=== PATIENT | male | born 1945 | race Caucasian/White ===

== ENCOUNTER 2019-07-15 22:18 | Inpatient (IN) | payer MEDICARE, SELFPAY ==
[2019-07-15] VITALS (13 sets, daily range): BP systolic 147; BP diastolic 101; PULSE 109–173; RESP 18; TEMP 38.2; O2SAT 87–97; BMI 22.4
--- NOTE | 2019-07-15 22:26 | XR_ITS ---
WS: [id number] XR chest 1V portable [id number] REASON FOR EXAM: cough FINDINGS: Chronic obstructive pulmonary disease findings. Fibrosis lower lung kumar. The overall pat tern has not changed since August 07, 2017. The heart is not enlarged No pneumonia, pulmonary edema, pleural effusion. The hilum and apices normal. XR/XR chest 1V portable [id number] IMPRESSION: Chronic obstructive pulmonary disease with fibrosis.
--- NOTE | 2019-07-15 22:27 | ECG_ITS ---
Measurements Intervals [place] Rate: 134 P: MI: 0 QRS: 79 QRSD: 138 T: 16 QT: 311 QTc: 465 ATRIAL FIBRILLATION WITH RAPID VENTRICULAR RESPONSE RIGHT BUNDLE BRANCH BLOCK [120+ ms QRS DURATION, UPRIGHT V1, 40+ ms S IN I/ I/aVL/V4/V5/V6] Compared to ECG 08/07/2017 20:07:12 Sinus rhythm no longer present First degree AV block no longer present Electronically Signed On 07-16-2019 12:24:14 CDT by Shira Amaya M.D. [id number]
--- NOTE | 2019-07-15 22:35 | ED_ITS ---
HPI - Chest Pain General: Chief Complaint: Chest Pain Stated Complaint: sob Time Seen by Provider: 07/15/19 22:26 History of Present Illness: HPI narrative: Mr. La is a nice 74-year-old male who comes in complaining of shortness of breath. He states that at 4 PM he developed abrupt onset of rapid palpitations, chest pain that was made worse with deep breathing. Patient states he has a cough but it is not productive. His primary complaint is that of rapid palpitations causing a chest discomfort. He is unaware of anything that makes his symptoms better but he states he does feel worse when he lays flat. The patient of note does have a fever here and he has been unaware of any fever. With the current pandemic the patient states he has been self quarantine again has not been exposed to anyone with the coronavirus that he is aware of. Associated symptoms: Reports dyspnea and palpitations; Deny abdominal pain, diaphoresis, fever(s), nausea, syncope or vomiting Review of Systems General: Reports: other (negative unless marked) Const: Denies: fever, chills, body aches, fatigue, malaise or diaphoresis Eyes: Denies: change in vision or blurry vision ENMT: Denies: throat pain, painful swallowing, hoarseness, ear pain, ear discharge, Change in hearing or nasal discharge Card: Reports: chest pain and palpitations; Denies: syncope, pre-syncope, shortness of breath on exertion or shortness of breath when lying down Resp: Reports: shortness of breath; Denies: productive cough, non-productive cough, wheezing, coughing up blood or chest congestion GI: Denies: abdominal pain, nausea, vomiting, vomiting blood, coffee grounds in vomit, diarrhea, constipation, cramping, blood in stool or black tarry stool : Denies: flank pain, difficulty urinating, painful urination, urinary frequency, urinary urgency, decreased urine ouput, urinary incontinence or blood in urine Musc: Denies: neck pain, back pain, extremity pain, extremity swelling, joint pain, joint swelling, joint warmth or joint stiffness Skin/Breast: Denies: rash, skin tenderness or yellow skin Neuro: Denies: headache, numbness in extremities, weakness in extremities, changes in sensation, lack of coordination, difficulty walking, dizziness, vertigo or confusion Endo: Denies: excessive thirst, tired all the time, cold intolerance, excessive sweating, flushing or hot flashes Asif/Lymph: Denies: easy bruising, easy bleeding, petechiae or enlarged lymph nodes All/Imm: Denies: hives, throat swelling, tongue swelling, facial swelling or acute wheezing PFSH ED PFSH: Medical History (Updated 07/16/19 @ 04:30 by Kristan Quijano) 1st degree AV block AF (paroxysmal atrial fibrillation) Atrial fibrillation Chronic anticoagulation Essential (primary) hypertension Headache Hypotension, unspecified Osteoarthritis of both knees RBBB SVT (supraventricular tachycardia) Surgical History (Updated 07/16/19 @ 02:30 by Azael Reynoso MD) History of tonsillectomy and adenoidectomy Family History Father Cancer Social History Smoking and tobacco status: never smoked Alcohol intake: current Alcohol intake frequency: holidays/special occasions only History of recent travel: No Physical Exam Const: COMMON NORMALS: no apparent distress, oriented x3, no limitations, healthy appearing and well nourished EXAM LIMITATIONS: no altered mental status GENERAL APPEARANCE: cooperative, well kempt and well developed ORIENTATION/CONSCIOUSNESS: Yes awake HENMT: COMMON NORMALS: normocephalic, head/scalp atraumatic, hearing grossly normal bilaterally, external ears normal, EAC's normal, external nose normal and moist oral mucous membranes HEAD & SCALP: normal to inspection, normocephalic and atraumatic FACE & SINUS: normal facial exam and face symmetric NOSE: external nose normal and nares normal EXTERNAL EAR: Yes external ears normal EXTERNAL AUDITORY CANAL: EAC's normal MOUTH: oral and palatal mucosa normal and tongue normal Eye: COMMON NORMALS: PERRL, EOMs intact bilaterally, conjunctivae normal and no scleral icterus GENERAL EYE: normal appearance of both eyes and normal light reflex CONJUNCTIVA: Yes conjunctivae normal SCLERA: sclerae normal CORNEA: Yes corneas normal PUPIL: Yes PERRL DIRECT OPHTHALMOSCOPY: Yes normal light reflex Neck/C-Spine: COMMON NORMALS: full ROM, no lymphadenopathy, supple, no meningeal signs and no JVD GENERAL: Yes normal visual inspection and Yes trachea midline CERVICAL SPINE: Yes cervical ROM normal Chest: COMMONS NORMALS: inspection of chest normal and palpation of chest normal Resp: COMMON NORMALS: normal respiratory effort, no retractions and no use of accessory muscles EFFORT & INSPECTION: Yes able to speak in complete sentences Cardio: COMMON NORMALS: no JVD, S1 normal heart sound, S2 normal heart sound, no gallops, no clicks, no murmurs and no rub JUGULAR VENOUS DISTENTION: no JVD RATE: tachycardic RHYTHM: abnormal rhythm irregularly irregular HEART SOUNDS: S1 normal and S2 normal GI: COMMON NORMALS: soft to palpation, non-tender, no hepatosplenomegaly and no masses INSPECTION: Yes normal to inspection PALPATION: Yes soft and Yes no hepatosplenomegaly : COMMON NORMALS: Yes no CVA tenderness BLADDER/KIDNEY EXAM: Yes no CVA tenderness Back/Pelvis: COMMON NORMALS: no CVA tenderness, thoracic and lumbar spine normal to inspection, no thoracic nor lumbar tenderness and thoraco-lumbar ROM normal Extremity: COMMON NORMALS: normal to inspection, full ROM, normal capillary refill, no joint enlargement, no clubbing, cyanosis or edema and no calf tenderness Neuro: COMMON NORMALS: oriented x3, CN's II-XII intact bilaterally, moves all extremities, no focal motor deficits and no sensory deficits noted MENINGEAL SIGNS: Yes no meningeal signs Psych: COMMON NORMALS: mental status grossly normal, thought process normal, cooperative, affect normal, speech normal and activity/motor behavior normal APPEARANCE: Yes well kempt SPEECH: Yes normal speech THOUGHT PROCESS: normal thought process Skin: COMMON NORMALS: no rashes or lesions noted, skin turgor normal, no jaundice, no petechiae and no mottling GENERAL SKIN EXAM: no rashes or lesions noted and turgor normal Course Vital Signs: Vital signs: Vital Signs Temperature 100.8 F H 07/15/19 22:32 Pulse Rate 139 H 07/16/19 04:15 Respiratory Rate 35 H 07/16/19 04:20 Blood Pressure 121/79 07/16/19 04:20 Pulse Oximetry 95 07/16/19 04:20 MDM - Chest Pain MDM Narrative: Medical decision making narrative: Mr. La is a 74-year-old male who comes in with A. fib with RVR. I believe this is been stimulated by sepsis which is caused by UTI. The patient has mild congestive heart failure secondary to the A. fib but when his rate is controlled with Cardizem he feels much better. Patient is been. We treated for his UTI and the case is been endorsed to Dr. Reynoso who agrees to go ahead and admit for sepsis/UTI and A. fib with RVR. Lab Data: Labs: Lab Results 07/15/19 07/15/19 07/16/19 Range/Units 00:40 22:45 00:05 WBC 11.8 H (4.0-10.0) 10^3/ uL RBC 4.25 (4.1-5.3) 10^6/u L Hgb 14.0 (11.7-16.6) g/dL Hct 42.0 (42.0-52.0) % MCV 98.8 H (80-94) fL MCH 32.9 (28.0-34.0) pg MCHC 33.3 (30.0-36.0) g/dL RDW 13.5 (12.1-15.1) % Plt Count 409 H (130-400) 10^3/c mm MPV 10.7 H (7.4-10.4) fL Neut % (Auto) 79.7 % Lymph % (Auto) 7.0 % [place] % (Auto) 12.0 % Eos % (Auto) 0.6 % Baso % (Auto) 0.3 % Neut # (Auto) 9.4 H (1.8-7.7) 10^3/u L Lymph # (Auto) 0.8 (0.8-4.8) 10^3/u L [place] # (Auto) 1.4 H (0.2-0.9) 10^3/u L Eos # (Auto) 0.1 (0.0-0.8) 10^3/u L Baso # (Auto) 0.0 (0.0-0.1) 10^3/u L Nucleated RBC % (a uto) 0 % Nucleated RBCs # 0.0 /100WBC PT (10.5-13.3) SECO NDS INR (0.8-1.2) ABG pH 7.50 H (7.35-7.45) ABG pCO2 26.7 L (35-45) mmHg ABG pO2 57.6 L (80.0-100.0) mmH g ABG HCO3 20.8 L (22-26) mmol/L ABG O2 Saturation 95 ABG Base Excess -1.0 (-2.0-2.0) mmol/ L O2 Delivery Device None FiO2 21.0 % Data Lead ID [id number] Sodium (136-145) mmol/L Potassium (3.5-5.1) mmol/L Chloride (98-107) mmol/L Carbon Dioxide (22-29) mmol/L Anion Gap (5-19) BUN (8-23) mg/dL Creatinine (0.7-1.2) mg/dL Glucose (65-115) mg/dL Calculated Osmolal ity (285-295) mOsm/k g Lactic Acid (0.5-2.2) mmol/L Calcium (8.5-10.5) mg/dL Magnesium (1.7-2.3) mg/dL Total Bilirubin (0.15-1.2) mg/dL AST (0-40) U/L ALT (0-41) U/L Alkaline Phosphata se (40-130) IU/L Troponin T Baselin e (0-15) ng/mL NT-Pro-B Natriuret Pep (0-450) pg/mL Total Protein (6.6-8.7) g/dL Albumin (3.5-5.2) g/dL Globulin (1.3-4.6) g/dL Influenza Type A A g Negative (Negative) Influenza Type B A g Negative (Negative) 07/16/19 07/16/19 07/16/19 Range/Units 00:05 00:05 00:05 WBC (4.0-10.0) 10^3/ uL RBC (4.1-5.3) 10^6/u L Hgb (11.7-16.6) g/dL Hct (42.0-52.0) % MCV (80-94) fL MCH (28.0-34.0) pg MCHC (30.0-36.0) g/dL RDW (12.1-15.1) % Plt Count (130-400) 10^3/c mm MPV (7.4-10.4) fL Neut % (Auto) % Lymph % (Auto) % [place] % (Auto) % Eos % (Auto) % Baso % (Auto) % Neut # (Auto) (1.8-7.7) 10^3/u L Lymph # (Auto) (0.8-4.8) 10^3/u L [place] # (Auto) (0.2-0.9) 10^3/u L Eos # (Auto) (0.0-0.8) 10^3/u L Baso # (Auto) (0.0-0.1) 10^3/u L Nucleated RBC % (a uto) % Nucleated RBCs # /100WBC PT 24.80 H (10.5-13.3) SECO NDS INR 2.16 H (0.8-1.2) ABG pH (7.35-7.45) ABG pCO2 (35-45) mmHg ABG pO2 (80.0-100.0) mmH g ABG HCO3 (22-26) mmol/L ABG O2 Saturation ABG Base Excess (-2.0-2.0) mmol/ L O2 Delivery Device FiO2 % Data Lead ID Sodium 135 L (136-145) mmol/L Potassium 5.0 (3.5-5.1) mmol/L Chloride 101 (98-107) mmol/L Carbon Dioxide 23 (22-29) mmol/L Anion Gap 16.0 (5-19) BUN 14 (8-23) mg/dL Creatinine 1.1 (0.7-1.2) mg/dL Glucose 148 H (65-115) mg/dL Calculated Osmolal ity 279 L (285-295) mOsm/k g Lactic Acid 1.2 (0.5-2.2) mmol/L Calcium 8.9 (8.5-10.5) mg/dL Magnesium 2.1 (1.7-2.3) mg/dL Total Bilirubin 0.5 (0.15-1.2) mg/dL AST 18 (0-40) U/L ALT 11 (0-41) U/L Alkaline Phosphata se 116 (40-130) IU/L Troponin T Baselin e (0-15) ng/mL NT-Pro-B Natriuret Pep 1073 H (0-450) pg/mL Total Protein 7.5 (6.6-8.7) g/dL Albumin 4.0 (3.5-5.2) g/dL Globulin 3.5 (1.3-4.6) g/dL Influenza Type A A g (Negative) Influenza Type B A g (Negative) 07/16/19 Range/Units 00:05 WBC (4.0-10.0) 10^3/ uL RBC (4.1-5.3) 10^6/u L Hgb (11.7-16.6) g/dL Hct (42.0-52.0) % MCV (80-94) fL MCH (28.0-34.0) pg MCHC (30.0-36.0) g/dL RDW (12.1-15.1) % Plt Count (130-400) 10^3/c mm MPV (7.4-10.4) fL Neut % (Auto) % Lymph % (Auto) % [place] % (Auto) % Eos % (Auto) % Baso % (Auto) % Neut # (Auto) (1.8-7.7) 10^3/u L Lymph # (Auto) (0.8-4.8) 10^3/u L [place] # (Auto) (0.2-0.9) 10^3/u L Eos # (Auto) (0.0-0.8) 10^3/u L Baso # (Auto) (0.0-0.1) 10^3/u L Nucleated RBC % (a uto) % Nucleated RBCs # /100WBC PT (10.5-13.3) SECO NDS INR (0.8-1.2) ABG pH (7.35-7.45) ABG pCO2 (35-45) mmHg ABG pO2 (80.0-100.0) mmH g ABG HCO3 (22-26) mmol/L ABG O2 Saturation ABG Base Excess (-2.0-2.0) mmol/ L O2 Delivery Device FiO2 % Data Lead ID Sodium (136-145) mmol/L Potassium (3.5-5.1) mmol/L Chloride (98-107) mmol/L Carbon Dioxide (22-29) mmol/L Anion Gap (5-19) BUN (8-23) mg/dL Creatinine (0.7-1.2) mg/dL Glucose (65-115) mg/dL Calculated Osmolal ity (285-295) mOsm/k g Lactic Acid (0.5-2.2) mmol/L Calcium (8.5-10.5) mg/dL Magnesium (1.7-2.3) mg/dL Total Bilirubin (0.15-1.2) mg/dL AST (0-40) U/L ALT (0-41) U/L Alkaline Phosphata se (40-130) IU/L Troponin T Baselin e 18 H (0-15) ng/mL NT-Pro-B Natriuret Pep (0-450) pg/mL Total Protein (6.6-8.7) g/dL Albumin (3.5-5.2) g/dL Globulin (1.3-4.6) g/dL Influenza Type A A g (Negative) Influenza Type B A g (Negative) Imaging Data^: CXR: My impression: No focal infiltrates. Bilateral lower lobe congestion?mild EKG Data^: EKG 1: Attestation: I personally reviewed and interpreted this EKG as follows: EKG interpretation date: 07/16/19 EKG interpretation time: 22:38 Interpretation: Atrial fibrillation with a ventricular rate of 134, nonspecific ST-T wave changes, right bundle branch block. EKG 2: Attestation: I personally reviewed and interpreted this EKG as follows: EKG interpretation date: 07/16/19 EKG interpretation time: 01:33 Interpretation: Normal sinus rhythm at 79 beats a minute, right bundle branch block, no other acute ST or T wave changes. Discharge Plan Discharge Patient Disposition: Admitted As Inpatient Admit Provider: Azael Reynoso Clinical Impression: AF (paroxysmal atrial fibrillation), Sepsis, Acute UTI Condition: Stable Interventions: ED Discharge Assessment Last Done: 07/16/19 03:11 ED Charges Last Done: 07/16/19 03:11 Discharge Date/Time: 07/16/19 04:24 Coding Level of Care Code ED Emergency Room Registered Nurse for Chg Fwd Exam Comprehensive
[2019-07-15] MEDS: acetaminophen 500 mg Tablet 1000 MG PO (23:01)
[2019-07-16] VITALS (79 sets, daily range): BP systolic 70–127; BP diastolic 41–81; PULSE 0–149; RESP 18–35; TEMP 36.4–37.7; O2SAT 88–97
[2019-07-16] MEDS: albuterol 8 gm MDI 6 PUFF INHALATION
[2019-07-16 00:18] LABS: Basophils % 0.3 %; Eosinophils # 0.1 10^3/uL (0.0-0.8); Eosinophils % 0.6 %; Lymphocytes # 0.8 10^3/uL (0.8-4.8); Mean Corpuscular HGB Conc 33.3 g/dL (30.0-36.0); Mean Corpuscular Hemoglobin 32.9 pg (28.0-34.0); Mean Corpuscular Volume 98.8 fL (80-94); Mean Platelet Volume 10.7 fL (7.4-10.4); Monocytes # 1.4 10^3/uL (0.2-0.9); Neutrophils # 9.4 10^3/uL (1.8-7.7); Neutrophils % 79.7 %; Nucleated Red Blood Cells % 0 %; Platelet Count 409 10^3/cmm (130-400); Red Blood Count 4.25 10^6/uL (4.1-5.3); Red Cell Distribution Width 13.5 % (12.1-15.1); White Blood Count 11.8 10^3/uL (4.0-10.0)
[2019-07-16 00:32] LABS: Lactic Sepsis W/Reflex 1.2 mmol/L (0.5-2.2)
[2019-07-16 00:34] LABS: INR 2.16 (0.8-1.2)
[2019-07-16 00:35] LABS: Troponin(5th) Baseline 18 ng/mL (0-15)
[2019-07-16 00:44] LABS: Alanine Aminotransferase 11 U/L (0-41); Alkaline Phosphatase 116 IU/L (40-130); Aspartate Amino Transferase 18 U/L (0-40); Blood Urea Nitrogen 14 mg/dL (8-23); Calcium 8.9 mg/dL (8.5-10.5); Carbon Dioxide 23 mmol/L (22-29); Chloride 101 mmol/L (98-107); Globulin 3.5 g/dL (1.3-4.6); Glucose 148 mg/dL (65-115); Magnesium 2.1 mg/dL (1.7-2.3); NT Pro B Type Natriuretic Pept 1073 pg/mL (0-450); Osmolality Calculated 279 mOsm/kg (285-295); Sodium 135 mmol/L (136-145); Total Bilirubin 0.5 mg/dL (0.15-1.2); Total Protein 7.5 g/dL (6.6-8.7)
[2019-07-16] MEDS: piperacillin-tazobactam 3.375 GM in sodium chloride 0.9% (plus) 50 ML IV (01:17)
[2019-07-16] MEDS: FUROsemide 10 mg/mL SDV 4mL 40 MG IVP (01:18)
[2019-07-16 01:25] LABS: Influenza A by IFA Negative (Negative); Influenza B by IFA Negative (Negative)
--- NOTE | 2019-07-16 01:37 | PM.HP ---
Providers/Chief Complaint Primary Care Provider: Tom Pulido MD Chief Complaint: sob History of Present Illness Krishna La is a 74 year old male who carries diagnoses of chronic A. fib, chronic anticoagulation with Coumadin, essential tremors, hypertension coming in with chief complaint of chest discomfort. Patient is stating that around evening yesterday he started experiencing palpitations and substernal chest pain which was getting worse on taking deep breaths. He is describing it as chest tightness which was not radiating, he denies diaphoresis, nausea or vomiting, orthopnea PND or recent flulike symptoms. He lives with his family, no recent sick contacts or traveling. Before coming to the hospital his fever was 99.8 at home checked by his son. Patient is stating that lately he has been producing clear sputum with his cough. He denies previous history of RI, CHF or coronary disease. His chest pain only gets worse on taking deep breaths otherwise no other worsening factors. Nitroglycerin and opioids did not help his chest pain. Diagnostics in the ER revealed A. fib RVR heart rate 144, he was started on Cardizem drip which converted him to normal sinus rhythm at the time of my interview heart rate 80, blood pressure 147, patient chest pain-free Troponin not significantly high BNP 1073 EKG does not reveal any infarct or ischemic changes Because of his fever of 100.8 without any source COVID was ordered, chest x-ray reveals bilateral infiltrates with groundglass opacities in the bases as compared to previous Review of Systems Const: Reports: fatigue; Denies: fever, chills or body aches Eyes: Denies: change in vision ENMT: Denies: throat pain Card: Reports: chest pain, palpitations, irregular heart rhythm and shortness of breath on exertion; Denies: swelling of feet/ankles, syncope, pre-syncope or shortness of breath when lying down Resp: Reports: shortness of breath and productive cough (Clear sputum) GI: Denies: abdominal pain, nausea or coffee grounds in vomit : Denies: flank pain or difficulty urinating Musc: Denies: neck pain or back pain Skin/Breast: Denies: rash or itching Neuro: Denies: headache Psych: Denies: anxiety Endo: Denies: excessive urination Asif/Lymph: Denies: easy bruising All/Imm: Denies: hives Medications/Allergies Home Medications Medication Instructions Recorded Confirmed Last Taken Type warfarin 6 mg tablet 6 mg PO DAILY tab 03/15/19 05/18/19 Unknown History amiodarone 100 mg tablet 50 mg PO DAILY tab 05/11/19 05/11/19 Unknown History lisinopril 20 mg tablet 40 mg PO DAILY tab 05/11/19 05/11/19 Unknown History primidone 50 mg tablet 50 mg PO BID tab 05/11/19 05/11/19 Unknown History propranolol 60 mg capsule,24 60 mg PO .AT HS cap 05/11/19 05/11/19 Unknown History hr,extended release warfarin 5 mg tablet 5 mg PO DAILY #30 tab 07/12/19 Unknown Rx Allergies Allergy/AdvReac Type Severity Reaction Status Date / Time ibuprofen [From Advil] Allergy Unknown Verified 05/18/19 09:54 PFSH Acute PFSH: Medical History (Updated 07/16/19 @ 02:30 by Azael Reynoso MD) 1st degree AV block AF (paroxysmal atrial fibrillation) Atrial fibrillation Chronic anticoagulation Essential (primary) hypertension Headache Hypotension, unspecified Osteoarthritis of both knees RBBB SVT (supraventricular tachycardia) Surgical History (Updated 07/16/19 @ 02:30 by Azael Reynoso MD) History of tonsillectomy and adenoidectomy Family History Father Cancer Social History Smoking and tobacco status: never smoked Alcohol intake: current Alcohol intake frequency: holidays/special occasions only History of recent travel: No Vitals/I&O/Wt Last Vital Signs Temp 100.8 F H 07/15/19 22:32 Pulse 96 07/16/19 00:50 Resp 22 H 07/16/19 00:01 BP 147/101 07/15/19 22:32 Pulse Ox 94 07/16/19 00:50 07/15/19 07/15/19 07/16/19 14:59 22:59 06:59 Intake Total 0.4 / 0.4 Balance 0.4 / 0.4 Weight last 48 hrs Weight 77.111 kg Physical Exam Narrative: EXAM NARRATIVE: Head to toe examination Patient sitting comfortably in his bed saturating well on room air He is febrile 100.8 No active restaurant distress EOMI, PERRLA No active signs of dehydration Variable S1-S2, no active murmur, clinically does not look fluid overloaded Lungs are clear to auscultation with mild rhonchi at the bases Abdomen soft nontender nondistended bowels are present Neurologically nonfocal exam Appropriate mood and affect Lower extremity does not show any ischemia gangrene or ulcer Pertinent negatives No active respiratory stress No active chest pain No murmur appreciated Data : 07/16/19 00:05 07/16/19 00:05 Micro: Microbiology 07/16/19 00:02 Blood Culture - Preliminary Blood SPECIMEN COLLECTED 07/16/19 00:05 Blood Culture - Preliminary Blood SPECIMEN COLLECTED A&P Assessment and plan (1) Pleuritic chest pain: Status: Acute (2) Atrial fibrillation with RVR: Status: Acute (3) Essential tremor: Status: Acute (4) Suspected COVID-19 virus infection: Status: Acute Additional A&P Information Sepsis Source unknown Fever 100.8, leukocytosis, tachycardia, leukocytosis, normal lactic acid, Chest x-ray revealing groundglass opacities No sick contacts, COVID rule out Would get ferritin, LDH, procalcitonin levels Admit to ICU and start vancomycin and Zosyn because of sepsis AirDrop and contact isolation A. fib RVR with underlying sepsis I believe sepsis is the cause of paroxysmal A. fib RVR Currently heart rate is 80, titrating down Cardizem drip I would continue his amiodarone and Coumadin He is therapeutic Essential tremors: Continue propanolol with close monitoring for low blood pressure and sedation Hypertension: Continue lisinopril Patient is full code DVT prophylaxis: Lovenox Cardiac diet Attestations Medical Necessity Statement*: Anticipating stay in the hospital to cross more than 2 midnights, currently he is septic, COVID needs to be ruled out, A. fib RVR needing Cardizem drip Time Spent in Patient Care: 50 Coding Level of Care Code Acute Lead Software Test Engineer for Chg Fwd Diagnoses Pleuritic chest pain R07.81 Atrial fibrillation with RVR I48.91 Essential tremor G25.0 Suspected COVID-19 virus infection Z20.828
[2019-07-16 02:31] LABS: Add Urine Culture? Yes; Bacteria Urine 2+; Bilirubin Urine Neg (NEGATIVE); Blood Urine 2+ (Negative); Glucose Urine UA Norm (Normal); Ketones Urine Negative (Negative); Leukocyte Esterase Urine 2+ (Negative); Nitrate Urine Positive (Negative); Protein Urine Trace (Negative); Squamous Epithelial Cell Urine 0-4 (0-5); Urine Appearance Cloudy (CLEAR); Urine Color Yellow (Yellow); Urobilinogen Urine Norm (Negative); WBC Urine >100 /hpf (0-5); pH Urine 7 (5-7)
[2019-07-16 03:26] LABS: ABG PCO2 26.7 mmHg (35-45); HCO3 ABG 20.8 mmol/L (22-26); PO2 ABG 57.6 mmHg (80.0-100.0)
--- NOTE | 2019-07-16 04:27 | ECG_ITS ---
Measurements Intervals [place] Rate: 122 P: LA: 0 QRS: 46 QRSD: 144 T: 19 QT: 364 QTc: 521 ATRIAL FIBRILLATION WITH RAPID VENTRICULAR RESPONSE RIGHT BUNDLE BRANCH BLOCK [120+ ms QRS DURATION, UPRIGHT V1, 40+ ms S IN I/aVL/V4/V5/V6] Compared to ECG 08/07/2017 20:07:12 Sinus rhythm no longer present First degree AV block no longer present Electronically Signed On 07-17-2019 8:47:46 CDT by Shira Amaya M.D. [email or web address]
[2019-07-16] MEDS: enoxaparin 40 mg/0.4 mL Syringe SUBCUT (05:08)
[2019-07-16] MEDS: amiodarone 200 mg Tablet 50 MG PO (05:09)
[2019-07-16 05:14] LABS: INR 2.33 (0.8-1.2)
[2019-07-16 05:17] LABS: Basophils % 0.2 %; Eosinophils % 0.1 %; Hematocrit 42.8 % (42.0-52.0); Hemoglobin 13.4 g/dL (11.7-16.6); Lymphocytes # 1.2 10^3/uL (0.8-4.8); Mean Corpuscular HGB Conc 31.3 g/dL (30.0-36.0); Mean Corpuscular Hemoglobin 31.1 pg (28.0-34.0); Mean Corpuscular Volume 99.3 fL (80-94); Mean Platelet Volume 10.6 fL (7.4-10.4); Monocytes # 2.6 10^3/uL (0.2-0.9); Monocytes % 15.6 %; Neutrophils # 12.7 10^3/uL (1.8-7.7); Neutrophils % 76.6 %; Nucleated Red Blood Cells % 0 %; Platelet Count 449 10^3/cmm (130-400); Red Blood Count 4.31 10^6/uL (4.1-5.3); Red Cell Distribution Width 13.3 % (12.1-15.1); White Blood Count 16.6 10^3/uL (4.0-10.0)
[2019-07-16 05:22] LABS: Alanine Aminotransferase 15 U/L (0-41); Albumin Level 3.8 g/dL (3.5-5.2); Alkaline Phosphatase 113 IU/L (40-130); Anion Gap 16.3 (5-19); Aspartate Amino Transferase 18 U/L (0-40); Blood Urea Nitrogen 18 mg/dL (8-23); Calcium 9.6 mg/dL (8.5-10.5); Carbon Dioxide 24 mmol/L (22-29); Chloride 102 mmol/L (98-107); Globulin 3.9 g/dL (1.3-4.6); Glucose 134 mg/dL (65-115); Osmolality Calculated 284 mOsm/kg (285-295); Potassium 4.3 mmol/L (3.5-5.1); Sodium 138 mmol/L (136-145); Total Bilirubin 0.8 mg/dL (0.15-1.2); Total Protein 7.7 g/dL (6.6-8.7)
[2019-07-16 05:26] LABS: Procalcitonin 0.67 ng/mL (0-0.5)
[2019-07-16 05:41] LABS: Ferritin 377 ng/mL (30-400); Lactate Dehydrogenase 256 U/L (135-225)
[2019-07-16] MEDS: cefTRIAXone 1,000 MG in sodium chloride 0.9% (plus) 50 ML 100 MG IV (08:49)
[2019-07-16] MEDS: FUROsemide 20 mg Tablet PO (08:49)
[2019-07-16] MEDS: albuterol 8 gm MDI 1 PUFF INHALATION (12:09)
[2019-07-16 13:49] LABS: Arterial Blood Gas Hematocrit 43.4 % (42-52); Blood Gas Allen Test Pos; Blood Gas Sample Site Radial, right; Blood Gas Sample Type Arterial; Carboxyhemoglobin 0.7 %THgb (0.4-20.1); HGB O2 Sat 94.1 % (95-100); Ionized Calcium Level - ABG 1.1 mmol/L (1.1-1.4); Methemoglobin 0.3 % (0.4-1.5); Oxygen Device NC; Potassium Level - ABG 4.1 mmol/L (3.5-5.0); Total Hemoglobin 14.2 g/dL (14-18)
--- NOTE | 2019-07-16 19:42 | P.PN_ITS ---
Subjective Subjective: Interval history: overnight labs, H&P reviewed. Patient states breathing and chest pain are improving, however not completely resolved. hr better controlled now, was briefly on cardizem drip which dropped BP to SBP 70s. Leukocytosis trending up to 16.6. Medications: Reviewed: Yes Vitals/I&O/Wt Last Vital Signs Temp 98.5 F 07/16/19 16:00 Pulse 127 H 07/16/19 18:00 Resp 25 H 07/16/19 15:30 BP 110/80 07/16/19 18:00 Pulse Ox 97 07/16/19 18:00 07/16/19 07/16/19 07/16/19 06:59 14:59 22:59 Intake Total 69.817 / 69.817 450 / 450 600 / 1050 Output Total 325 / 325 325 / 650 Balance 69.817 / 69.817 125 / 125 275 / 400 Weight last 48 hrs Weight 77.111 kg Physical Exam Narrative: EXAM NARRATIVE: GEN: Awake, alert and oriented, no acute distress CVS: S1S2 N RS: B/L posterior basal crepts+ Abd: Soft, nt/nd , bs+ STATISTICIAN THEORETICAL: no focal neuro deficits EXT: no pitting edema Data : 07/16/19 04:15 07/16/19 04:15 Micro: Microbiology 07/16/19 00:02 Blood Culture - Preliminary Blood SPECIMEN COLLECTED 07/16/19 00:05 Blood Culture - Preliminary Blood SPECIMEN COLLECTED A&P Assessment and plan (1) Sepsis: Status: Acute Qualifiers: Sepsis acute organ dysfunction status: unspecified Sepsis type: sepsis due to unspecified organism Qualified Code(s): A41.9 - Sepsis, unspecified organism (2) Acute UTI: Status: Acute (3) Suspected COVID-19 virus infection: Status: Acute (4) Atrial fibrillation with RVR: Status: Acute (5) Essential tremor: Status: Acute (6) Pleuritic chest pain: Status: Acute (7) Essential (primary) hypertension: Status: Acute Additional A&P Information Sepsis from urinary source Fever 100.8, leukocytosis, tachycardia as crietria met Chest x-ray revealing groundglass opacities No sick contacts COVID rule out Continue ceftriaxone empirically A. fib RVR with underlying sepsis I would continue his amiodarone, resume propranolol at 40mg BID He is with therapeutic INR, at home ranging between 1.9-2.0 Essential tremors: Continue propanolol with close monitoring for low blood pressure and sedation Hypertension: Continue lisinopril Patient is full code DVT prophylaxis: Lovenox Cardiac diet Attestations Medical Necessity Statement*: awaiting optimization of respiratory status, rat e controlled Coding Level of Care Code Acute Shift Stacker for Chg Fwd Diagnoses Sepsis A41.9 Sepsis acute organ dysfunction status: unspecified Sepsis type: sepsis due to unspecified organism Acute UTI N39.0 Suspected COVID-19 virus infection Z20.828 Atrial fibrillation with RVR I48.91 Essential tremor G25.0 Pleuritic chest pain R07.81 Essential (primary) hypertension I10
[2019-07-17] VITALS (23 sets, daily range): BP systolic 84–142; BP diastolic 51–95; PULSE 71–152; RESP 16–29; TEMP 36.6–37.4; O2SAT 80–97
[2019-07-17] MEDS: acetaminophen 325 mg Tablet 650 MG PO (02:18)
--- NOTE | 2019-07-17 03:29 | USCV_ITS ---
Krishna La Age: 74 Gender: M : 1945 Exam Date: 07/17/2019 13:54 Ordering Phys: Azael Reynoso MD Technologist: Roma Renae Exam Location: [facility] [place] Indication: New onset of CHF. BP: 110 / 66 HR: Rhythm: Sinus Technical Quality: Technically difficult study MEASUREMENTS (Male / Female) Normal Values M-MODE LV Diastolic Diameter MM 6.1 cm 4.2 - 5.9 / 3.9 - 5.3 cm LV Systolic Diameter MM 5.8 cm LV Ejection Fraction MM Teich 11.6 % IVS Diastolic Thickness MM 0.9 cm 0.6 - 1.0 / 0.6 - 0.9 cm IVS Systolic Thickness MM 1.1 cm LVPW Diastolic Thickness MM 1.0 cm 0.6 - 1.0 / 0.6 - 0.9 cm LVPW Systolic Thickness MM 1.3 cm FINDINGS Left Ventricle Normal left ventricular size and systolic function, EF 65% . Right Ventricle Possibly of normal size ejection fraction Right Atrium Normal right atrial size. Left Atrium Normal left atrial size. Mitral Valve Thickened mitral valve. Aortic Valve Aortic valve stenosis. Tricuspid Valve No gross abnormalities noted Pulmonic Valve No gross abnormalities noted Pericardium Small to moderate echo-free space, suggestive of pericardial effusion Aorta Normal aortic annulus size. CONCLUSIONS Normal left ventricular size and systolic function, EF 65% . No gross wall motion normalities Minimally thickened aortic and mitral valves. Echo-free space around the left ventricle, suggestive of small to moderate pericardial effusion. There are no intracardiac masses. Compared to the study from 09/02/2017, the pericardial effusion appears to be new Dr Dwaine Siegel MD [facility] (Electronically Signed) Final Date: 17 Jul 2019 15:39 S
[2019-07-17] MEDS: amiodarone 200 mg Tablet 50 MG PO (05:36)
[2019-07-17] MEDS: lisinopril 20 mg Tablet 40 MG PO (09:10)
[2019-07-17] MEDS: FUROsemide 20 mg Tablet PO (09:10)
[2019-07-17] MEDS: primidone 50 mg Tablet PO ×2 (09:11→17:57)
[2019-07-17] MEDS: propranolol 40 mg Tablet PO (09:11)
[2019-07-17] MEDS: cefTRIAXone 1,000 MG in sodium chloride 0.9% (plus) 50 ML 100 MG IV (09:11)
--- NOTE | 2019-07-17 11:32 | P.PN_ITS ---
Subjective Subjective: Interval history: feels beter subjectively, chets pain improving but still persisting around left shoulder. HR ranging between 70-96, when in to eamine in room, as high as 120-140. BP better today. Urinary burning now resolved. 02 sat 92% on room air Medications: Reviewed: Yes Vitals/I&O/Wt Last Vital Signs Temp 97.9 F 07/17/19 06:00 Pulse 96 07/17/19 09:04 Resp 18 07/17/19 09:04 BP 110/66 07/17/19 07:00 Pulse Ox 92 07/17/19 09:04 07/16/19 07/17/19 07/17/19 22:59 06:59 14:59 Intake Total 600 / 1050 Output Total 500 / 825 425 / 1250 Balance 100 / 225 -425 / -200 Weight last 48 hrs Weight 77.111 kg Physical Exam Narrative: EXAM NARRATIVE: GEN: Awake, alert and oriented, sitting in chair by bedside , tachypneic on attemptng to converse CVS: S1S2 N RS: B/L crackles posteriorly, improved over yesterday Abd: Soft, nt/nd , bs+ FACILITIES ASSISTANT: no focal neuro deficits EXT: no pitting edema Data : 07/16/19 04:15 07/16/19 04:15 Micro: Microbiology 07/16/19 01:50 Urine Culture - Preliminary Urine,Clean Catch 07/16/19 00:02 Blood Culture - Preliminary Blood NEGATIVE TO DATE 07/16/19 00:05 Blood Culture - Preliminary Blood NEGATIVE TO DATE A&P Assessment and plan (1) Sepsis: Status: Acute Qualifiers: Sepsis acute organ dysfunction status: unspecified Sepsis type: sepsis due to unspecified organism Qualified Code(s): A41.9 - Sepsis, unspecified organism (2) Acute UTI: Status: Acute (3) Suspected COVID-19 virus infection: Status: Acute (4) Atrial fibrillation with RVR: Status: Acute (5) Essential tremor: Status: Acute (6) Pleuritic chest pain: Status: Acute (7) Essential (primary) hypertension: Status: Acute Additional A&P Information 1. Sepsis from urinary source Fever 100.8, leukocytosis, tachycardia as criteria met Patient has prior h/o urinary stones CBC, CMP pending today Will obtain abdominal imaging today to evaluate for complicated UTI in male continue empiric CTX urine cx with mixed superficial nataliia 2. A fib with RVR May have been triggered by sepsis currently with intermittent HR jumps to 140bpm, increase propranolol to 40mg TID from BID Continue amiodarone 50mg po daily (home dose) A/c with coumadin, goal INR 2-3 Echocardiogram pending 3. Likely CHF exacerbated by A fib with RVR Lasix additional 20mg iv today Continue 20mg po daily Monitor daily weight, I/0 Echocardiogram pending BNP >1000 4. Chest pain, appears pleuritic in nature No gross consolidation on CXR troponins without significant delta no acute ST-T changes on EKG less likely PE given patient on coumadin with therapeutic INR, will obtain screening D dimer Avoiding CTA chest for now given YOLY 4. No gross consolidation on CXR, COVID negative 5. YOLY : Hold lisinopril in view of YOLY with cr 1.4 if BP elevated, will switch to amlodipine 6. Essential tremors: propanolol + primidone 7. 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
[2019-07-17 11:56] LABS: INR 1.94 (0.8-1.2)
[2019-07-17 11:58] LABS: D Dimer 0.45 ug/mIFEU (0-0.59)
[2019-07-17 12:08] LABS: Alanine Aminotransferase 11 U/L (0-41); Albumin Level 3.5 g/dL (3.5-5.2); Alkaline Phosphatase 93 IU/L (40-130); Anion Gap 16.3 (5-19); Aspartate Amino Transferase 12 U/L (0-40); Blood Urea Nitrogen 22 mg/dL (8-23); Carbon Dioxide 23 mmol/L (22-29); Chloride 99 mmol/L (98-107); Globulin 3.8 g/dL (1.3-4.6); Glucose 96 mg/dL (65-115); Osmolality Calculated 275 mOsm/kg (285-295); Potassium 4.3 mmol/L (3.5-5.1); Sodium 134 mmol/L (136-145); Total Bilirubin 0.4 mg/dL (0.15-1.2); Total Protein 7.3 g/dL (6.6-8.7)
[2019-07-17 12:09] LABS: Magnesium 2.2 mg/dL (1.7-2.3)
[2019-07-17] MEDS: propranolol 20 mg Tablet 40 MG PO ×2 (12:18→17:52)
[2019-07-17] MEDS: FUROsemide 10 mg/mL SDV 2mL 20 MG IVP (12:18)
[2019-07-17 12:19] LABS: Prostate Specific Antigen 7.65 ng/mL (0-4)
[2019-07-17 12:31] LABS: Basophils % 0.3 %; Eosinophils # 0.1 10^3/uL (0.0-0.8); Eosinophils % 0.9 %; Hematocrit 36.8 % (42.0-52.0); Hemoglobin 13.4 g/dL (11.7-16.6); Lymphocytes # 1.3 10^3/uL (0.8-4.8); Mean Corpuscular HGB Conc 36.4 g/dL (30.0-36.0); Mean Corpuscular Hemoglobin 37.2 pg (28.0-34.0); Mean Corpuscular Volume 102.2 fL (80-94); Mean Platelet Volume 10.7 fL (7.4-10.4); Monocytes # 2.5 10^3/uL (0.2-0.9); Monocytes % 18.7 %; Neutrophils # 9.1 10^3/uL (1.8-7.7); Neutrophils % 69.7 %; Nucleated Red Blood Cells % 0 %; Platelet Count 380 10^3/cmm (130-400); White Blood Count 13.1 10^3/uL (4.0-10.0)
--- NOTE | 2019-07-17 13:48 | CTR_ITS ---
PROCEDURE INFORMATION: Exam: CT Chest Without Contrast Exam date and time: 07/17/2019 2:29 PM Age: 74 years old Clinical indication: Fever; Patient HX: UTI, L sided cp and sepsis; Additional info: Hansel, UTI in male, evaluate for obstrcution TECHNIQUE: Imaging protocol: Computed tomography of the chest without contrast. Radiation optimization: All CT scans at this facility use at least one of these dose optimization techniques: automated exposure control; mA and/or kV adjustment per patient size (includes targeted exams where dose is matched to clinical indication); or iterative reconstruction. COMPARISON: No relevant prior studies available. RADIATION DOSE METRICS: Total DLP: 1296.67 mGy-cm FINDINGS: Lungs: There is severe emphysematous changes. Nonspecific bibasilar consolidation is present left greater than right, consistent with atelectasis, edema, and or pneumonic infiltrates. There is mild dependent atelectasis. There is mild bronchiectasis without mucous plugging. Pleural space: There are trace pleural effusions versus pleural thickening. Heart: There is a moderate to large size pericardial effusion. There is mild cardiomegaly. Mediastinum: There is a small hiatal hernia. Aorta: There are mild atherosclerotic changes in the aorta. No aneurysm. Lymph nodes: No pathologic adenopathy in the axilla mediastinum or herb. Bones/joints: There is levoscoliosis. Moderate to severe degenerative changes are noted in the spine and shoulders. Soft tissues: Unremarkable. Other findings: No dissection on this noncontrast study. IMPRESSION: 1. There is a moderate to large size pericardial effusion. 2. Nonspecific bibasilar consolidation is present left greater than right, consistent with atelectasis, edema, and or pneumonic infiltrates. Probable trace pleural effusions versus pleural thickening. 3. Severe emphysematous changes. PROCEDURE INFORMATION: Exam: CT Abdomen And Pelvis Without Contrast Exam date and time: 07/17/2019 2:29 PM Age: 74 years old Clinical indication: Fever; Patient HX: UTI, L sided cp and sepsis; Additional info: Hansel, UTI in male, evaluate for obstrcution TECHNIQUE: Imaging protocol: Computed tomography of the abdomen and pelvis without contrast. Radiation optimization: All CT scans at this facility use at least one of these dose optimization techniques: automated exposure control; mA and/or kV adjustment per patient size (includes targeted exams where dose is matched to clinical indication); or iterative reconstruction. COMPARISON: No relevant prior studies available. RADIATION DOSE METRICS: Total DLP: 1296.67 mGy-cm FINDINGS: Liver: There are multiple hypodensities in the liver. Some are too small to characterize but the lesions measuring over 1 cm in size are fluid density cyst. No duct dilatation liver. Gallbladder and bile ducts: Normal. No calcified stones. No ductal dilation. Pancreas: The pancreas is poorly visualized due to motion artifact but the pancreas is grossly unremarkable. Spleen: Normal. No splenomegaly. Adrenals: Normal. No mass. Kidneys and ureters: There is no evidence of hydronephrosis. There is no evidence of renal calcifications. Stomach and bowel: The stomach is collapsed. There is an incidental duodenal diverticulum. The duodenum is otherwise unremarkable. There is abundant colonic stool compatible with constipation. No impaction. The loops of small bowel have an appropriate appearance. Appendix: A normal appendix is identified. Intraperitoneal space: Unremarkable. No free air. No significant fluid collection. Retroperitoneal space: No retroperitoneal fluid. No evidence of dissection or leak on this noncontrast study. Vasculature: There is aneurysmal dilatation of the infrarenal distal abdominal aorta measuring 3.7 x 3.3 cm in size image 30. There are moderate atherosclerotic calcifications. Lymph nodes: Unremarkable.No enlarged lymph nodes. Bladder: The bladder is very distended. The wall is mildly thickened in this may reflect chronic outlet obstructive changes. There is also a bladder calculus that measures 1.5 cm in size. Reproductive: The prostate demonstrates moderate nonspecific enlargement. The seminal vesicles are normal. Bones/joints: There are moderate to severe degenerative changes in the spine and pelvis. There is degenerative appearing grade 1 anterior listhesis of L3 on L4 and L4 on L5. Soft tissues: There are small bilateral fat filled inguinal hernias. Other findings: No ileus or obstruction. CT/CT chest abd pel wo con IMPRESSION: 1. Multiple liver cysts. 2. Distal abdominal aortic aneurysm measuring 3.7 cm in greatest dimension. No evidence of leak. 3. The urinary bladder is very distended. Please correlate if the patient is having difficulty voiding. There is also a bladder calculus. Prostatomegaly and diffuse mild bladder wall thickening is noted compatible with chronic outlet obstructive changes. No hydronephrosis. 4. No acute abnormality in the abdomen or pelvis. Radiation Dose CTDIVOL = (mGy): DLP = 1296.67~1296.67 (mGy-cm)
[2019-07-17] MEDS: warfarin 2 mg Tablet 8 MG PO (17:57)
--- NOTE | 2019-07-17 18:13 | ECG_ITS ---
Measurements Intervals [place] Rate: 96 P: RI: 0 QRS: 46 QRSD: 149 T: 24 QT: 360 QTc: 457 ATRIAL FIBRILLATION RIGHT BUNDLE BRANCH BLOCK [120+ ms QRS DURATION, UPRIGHT V1, 40+ ms S IN I/aVL/V4/V5/V6] Compared to ECG 07/16/2019 06:20:23 No significant changes Electronically Signed On 07-18-2019 19:58:03 CDT by Dwaine Siegel M.D. [id number]
[2019-07-18] VITALS (11 sets, daily range): BP systolic 90–136; BP diastolic 60–83; PULSE 71–101; RESP 18–20; TEMP 36.4–37.1; O2SAT 92–98
[2019-07-18 05:40] LABS: Basophils % 0.2 %; Eosinophils # 0.2 10^3/uL (0.0-0.8); Eosinophils % 1.6 %; Hematocrit 37.4 % (42.0-52.0); Lymphocytes # 1.4 10^3/uL (0.8-4.8); Lymphocytes % 14.1 %; Mean Corpuscular HGB Conc 32.1 g/dL (30.0-36.0); Mean Corpuscular Hemoglobin 31.7 pg (28.0-34.0); Mean Corpuscular Volume 98.9 fL (80-94); Mean Platelet Volume 10.9 fL (7.4-10.4); Monocytes # 1.5 10^3/uL (0.2-0.9); Monocytes % 15.1 %; Neutrophils # 6.7 10^3/uL (1.8-7.7); Neutrophils % 68.2 %; Nucleated Red Blood Cells % 0 %; Platelet Count 290 10^3/cmm (130-400); Red Blood Count 3.78 10^6/uL (4.1-5.3); Red Cell Distribution Width 13.6 % (12.1-15.1); White Blood Count 9.9 10^3/uL (4.0-10.0)
[2019-07-18 05:52] LABS: INR 1.77 (0.8-1.2)
[2019-07-18 06:00] LABS: Alanine Aminotransferase 13 U/L (0-41); Albumin Level 2.9 g/dL (3.5-5.2); Alkaline Phosphatase 75 IU/L (40-130); Anion Gap 15.1 (5-19); Aspartate Amino Transferase 17 U/L (0-40); Blood Urea Nitrogen 25 mg/dL (8-23); Calcium 8.3 mg/dL (8.5-10.5); Carbon Dioxide 24 mmol/L (22-29); Chloride 101 mmol/L (98-107); Globulin 3.2 g/dL (1.3-4.6); Glucose 102 mg/dL (65-115); Osmolality Calculated 279 mOsm/kg (285-295); Potassium 4.1 mmol/L (3.5-5.1); Sodium 136 mmol/L (136-145); Total Bilirubin 0.4 mg/dL (0.15-1.2); Total Protein 6.1 g/dL (6.6-8.7)
[2019-07-18] MEDS: acetaminophen 325 mg Tablet 650 MG PO (08:35)
[2019-07-18] MEDS: primidone 50 mg Tablet PO ×2 (08:36→17:08)
[2019-07-18] MEDS: dilTIAZem 30 mg Tablet PO ×3 (08:36→20:56)
[2019-07-18] MEDS: amiodarone 200 mg Tablet 50 MG PO (08:37)
[2019-07-18] MEDS: propranolol 20 mg Tablet 40 MG PO ×2 (08:38→17:08)
[2019-07-18] MEDS: FUROsemide 20 mg Tablet PO (08:40)
[2019-07-18] MEDS: cefTRIAXone 1,000 MG in sodium chloride 0.9% (plus) 50 ML 100 MG IV (08:51)
--- NOTE | 2019-07-18 14:55 | ECG_ITS ---
Measurements Intervals [place] Rate: 92 P: NV: 0 QRS: 43 QRSD: 98 T: 11 QT: 371 QTc: 460 ATRIAL FIBRILLATION INCOMPLETE RIGHT BUNDLE BRANCH BLOCK [90+ ms QRS DURATION, TERMINAL R IN V1/V2, 40+ ms S IN I/aVL/V4/V5/V6] MODERATE ST DEPRESSION [0.05+ mV ST DEPRESSION] TYPE 3 BRUGADA PATTERN (NON-DIAGNOSTIC) [COVED/SADDLEBACK ST ELEVATION > 0.1mV IN 2 OF V1-3] Compared to ECG 07/16/2019 06:20:23 Incomplete right bundle-branch block now present ST (T wave) deviation now present Right bundle-branch block no longer present Electronically Signed On 07-18-2019 20:11:30 CDT by Dwaine Siegel M.D. [id number]
[2019-07-18] MEDS: warfarin 2 mg Tablet 8 MG PO (14:57)
--- NOTE | 2019-07-18 16:41 | P.PN_ITS ---
Subjective Subjective: Interval history: Feels better today, pain much improved, no dyspnea, chest pain. HR better controlled between 79-96/min. SBP ranging 90-100 systolic, Cardizem was added last evening for better rate control. He is requiring night time supplemental 02 1.5-2lpm. Underwent CT CAP which showed emphysema and bronchiectasis. No signs of hydronephrosis however grossly distened bladder and moserate prostate enlargement. Raymundo was placed yesterday with drainage of 1L urine. Creatinine continues to improve. Medications: Reviewed: Yes Vitals/I&O/Wt Last Vital Signs Temp 97.6 F 07/18/19 12:00 Pulse 96 07/18/19 12:00 Resp 20 H 07/18/19 12:00 BP 90/62 07/18/19 12:00 Pulse Ox 98 07/18/19 12:00 07/18/19 07/18/19 07/18/19 06:59 14:59 22:59 Intake Total 840 / 840 Balance 840 / 840 Physical Exam Narrative: EXAM NARRATIVE: GEN: Awake, alert and oriented, sitting in bed, more comfortable than on previosu exams. CVS: S1S2 N RS: B/L clear to auscultation today Abd: Soft, nt/nd , bs+ SERVICE OPERATOR: no focal neuro deficits EXT: no pitting edema Urinary Catheter Management^: Raymundo: Cath Placed During This Visit: yes Reason for Continuing Indwelling Catheter: Acute Urinary Retention or Obstruction Urinary Catheter Date of Insertion: 07/17/19 Urinary Catheter Time of Insertion: 16:22 Data : 07/18/19 04:40 07/18/19 04:40 Micro: Microbiology 07/18/19 15:58 Blood Culture - Preliminary Blood SPECIMEN COLLECTED 07/18/19 15:54 Blood Culture - Preliminary Blood SPECIMEN COLLECTED 07/16/19 01:50 Urine Culture - Final Urine,Clean Catch 07/16/19 00:05 Blood Culture - Preliminary Blood Gram positive cocci A&P Assessment and plan (1) Sepsis: Status: Acute Qualifiers: Sepsis acute organ dysfunction status: unspecified Sepsis type: sepsis due to unspecified organism Qualified Code(s): A41.9 - Sepsis, unspecified organism (2) Acute UTI: Status: Acute (3) Suspected COVID-19 virus infection: Status: Acute (4) Atrial fibrillation with RVR: Status: Acute (5) Essential tremor: Status: Acute (6) Pleuritic chest pain: Status: Acute (7) Essential (primary) hypertension: Status: Acute (8) Urinary retention: Status: Acute Additional A&P Information 1. Sepsis from urinary source Fever 100.8, leukocytosis, tachycardia as criteria met Abdomal imaging obatined to evaluate for complicated UTI in male - showed grossly distended bladder with outlet obstruction and moderate prostate hypertrophy. Raymundo placed for retention with drainge of ~1L urine. Also noted to bladder calculus 1.5cm. With recovery of above results, plan to leave Raymundo catheter in place until discharge. Given that patient was not symptomatic even with gross bladder distension and he has a UTI, suspect that he has had high residual volumes more chronically and as such will be at high risk of repeat urinary retention. Will plan follow up with Dr. Alvarenga this week after dis charge. May need further cystoscopic work up. In the interim, will start patient on alfuzosin with close monitoring of blood pressure. continue empiric CTX, currently day 3 , urine cx with multiple organisms deemed contaminants, not worked up further. Plan on total 5 day course 2. A fib with RVR May have been triggered by sepsis currently with HR between 70-96/min, better controlled after addition of cardizem TID yesterday Continue amiodarone 50mg po daily (home dose) , previously attempts to titrate up were limited by hallucinations continue propranolol 40BId for now, change to extended release upon discharge home A/c with coumadin, goal INR 2-3 Echocardiogram with moderate pericardial effusion, limited study,no gross tamponade features, will need close f/up with cardiology as an outpatient to reassess collection. 3. Likely CHF exacerbated by A fib with RVR Echo with normal systolic function EF 65%, no RWMA. Unable to assess diastolic function as limited by tachycardia. Currently appears euvolemic, D/c Lasix today and monitor Monitor daily weight, I/0 4. Chest pain, now improved, states appearing to be positional with movements at left shoulder ?musculoskeletal in nature No gross consolidation on CXR troponins without significant delta D dimer negative, pt on coumadin, less likely PE no acute ST-T changes on EKG Avoiding CTA chest given recent YOLY 4. No gross consolidation on CXR, COVID negative CT chest with emphysema and bronchiectasis, new diagnosis for patient Requiring night time 02, reports snoring, check overnight oximetry to assess for night time 02 +/- CPAP Will need outpatient PFT and f/up with PCP Started on levoalbuterol and iptratropium inhalation, which can be continued upon discharge 5. YOLY : Hold lisinopril in view of YOLY and borderline low SBPs. Will leave room for titrating rate control medications 6. Essential tremors: propanolol + primidone 7. 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
[2019-07-19] VITALS (8 sets, daily range): BP systolic 102–105; BP diastolic 57–69; PULSE 71–96; RESP 18–20; TEMP 36.7–36.9; O2SAT 88–96
[2019-07-19 06:38] LABS: INR 1.91 (0.8-1.2)
[2019-07-19 06:50] LABS: Alanine Aminotransferase 25 U/L (0-41); Albumin Level 2.5 g/dL (3.5-5.2); Alkaline Phosphatase 74 IU/L (40-130); Anion Gap 11.9 (5-19); Aspartate Amino Transferase 24 U/L (0-40); Blood Urea Nitrogen 20 mg/dL (8-23); Calcium 8.7 mg/dL (8.5-10.5); Carbon Dioxide 23 mmol/L (22-29); Chloride 103 mmol/L (98-107); Globulin 3.5 g/dL (1.3-4.6); Glucose 94 mg/dL (65-115); Osmolality Calculated 274 mOsm/kg (285-295); Potassium 3.9 mmol/L (3.5-5.1); Sodium 134 mmol/L (136-145); Total Bilirubin 0.3 mg/dL (0.15-1.2)
--- NOTE | 2019-07-19 08:20 | PC.SOCIAL ---
IMM Page 2 of IMM given to patient. Initialed, dated, and timed and placed in chart.
[2019-07-19] MEDS: cefTRIAXone 1,000 MG in sodium chloride 0.9% (plus) 50 ML 100 MG IV (09:57)
[2019-07-19] MEDS: primidone 50 mg Tablet PO (09:57)
[2019-07-19] MEDS: alfuzosin 10 mg ER Tablet PO (09:58)
[2019-07-19] MEDS: amiodarone 200 mg Tablet 50 MG PO (09:59)
[2019-07-19] MEDS: propranolol 20 mg Tablet 40 MG PO (09:59)
[2019-07-19] MEDS: dilTIAZem 30 mg Tablet PO (09:59)
[2019-07-19] MEDS: levalbuterol 0.63 mg/3 mL Neb INHALATION (10:01)
--- NOTE | 2019-07-19 11:39 | PM.DCS ---
Discharge Providers Date of Admission: 07/16/19 01:39 Date of Discharge: July 19, 2019 Attending Provider at Admission: Azael Reynoso MD Attending Provider at Discharge: Caitlin Dudley MD Primary Care Provider: Tom Pulido MD Diagnoses at Discharge Discharge Diagnosis (1) Sepsis: Status: Resolved Qualifiers: Sepsis type: sepsis due to unspecified organism Sepsis acute organ dysfunction status: without acute organ dysfunction Qualified Code(s): A41.9 - Sepsis, unspecified organism (2) Acute UTI: Status: Acute (3) Bladder stone: Status: Acute (4) Urinary retention: Status: Acute (5) Atrial fibrillation with RVR: Status: Resolved (6) Pleuritic chest pain: Status: Resolved (7) Suspected COVID-19 virus infection: Status: Ruled-out (8) Essential (primary) hypertension: Status: Chronic (9) Bronchiectasis: Status: Acute Qualifiers: Bronchiectasis type: with acute exacerbation Qualified Code(s): J47.1 - Bronchiectasis with (acute) exacerbation (10) Hypoxemia requiring supplemental oxygen: Status: Acute (11) AF (paroxysmal atrial fibrillation): Status: Chronic (12) Chronic anticoagulation: Status: Acute (13) Pericardial effusion: Status: Acute Problem details: Noted on echocardiogram done in July 2019 described a small to moderate (14) Essential tremor: Status: Chronic (15) Osteoarthritis of both knees: Status: Chronic Qualifiers: Osteoarthritis type: other secondary Qualified Code(s): M17.4 - Other bilateral secondary osteoarthritis of knee Reason for Visit Reason for Visit: Reason For Visit: sob Hospital Course Hospital Course: Mr. La, whom I know very well, was admitted on 15 July with increasing shortness of breath. He was found to have atrial fibrillation with rapid ventricular response. He had a fever at the time and was felt to have sepsis as precipitating event for the A. fib with RVR. He was ultimately found to have evidence of urinary tract infection. He had significant urinary retention with more than a liter as well as a bladder stone identified. He was started on alpha blockade and will be going home with Raymundo catheter in place with plan to follow-up with Dr. Alvarenga this week. He will complete antibiotic course with oral antibiotics. I have transitioned him from Rocephin to cefuroxime. In terms of his atrial fibrillation management he had been started on immediate release Cardizem at 30mg 3 times daily. I had attempted to put him on Cardizem twice daily dosing but there was no pharmacy around here that had it in stock. I ended up keeping him on the 30 mg 3 times a day despite with the medication list down below states. This was not brought to my attention until after patient had had his medication list finalized. Discussed with patient's PCP who will try to decrease the Cardizem and go up on propranolol for better and more sustained rate control as possible. I did order inhalers for patient. He is requiring 2 L of oxygen by nasal cannula [id number]. With exertion he dropped around 87% on room air. I have decreased his lisinopril dosing due to normal blood pressures and renal function. INR was staying a right around 2.0 and patient will be continued on usual dosing. Echocardiogram done during the stay showed a normal ejection fraction but small to moderate pericardial effusion was noted. Will need to follow this over time. CT imaging of the chest revealed emphysema and bronchiectasis changes which is not surprising given his prior history of smoking and exposures. Arrangements are being made for outpatient pulmonary function studies. He did not wish to have any home health for Raymundo catheter management. I reviewed all of the things that it happened during the hospital stay and the medication changes with him and gave him an opportunity to ask questions. He does have my personal cell phone number as well should he need it and again I did review with Dr. Pulido, his primary care provider at length. Physical Exam Narrative: EXAM NARRATIVE: Krishna looks more tired than I am used to seeing him. He actually looks more frail than normal with some slight bitemporal wasting. Tremor is improved from baseline. He is requiring pauses every now and then and talking for his breathing. He has some scattered crackles and an occasional wheeze but no current accessory muscle use. He is requiring oxygen at 2 L by nasal cannula. He has an irregular but rate controlled rhythm. Abdomen is soft. He has equal handgrip bilaterally and is determined to walk on his own as is his usual. Urinary Catheter Management^: Raymundo: Cath Placed During This Visit: yes Reason for Continuing Indwelling Catheter: Acute Urinary Retention or Obstruction Urinary Catheter Date of Insertion: 07/17/19 Urinary Catheter Time of Insertion: 16:22 Discharge Data Data Completed and Pending: Completed Studies During Hospitalization Category Date Time Status CT chest abd pel wo con Routine Cat Scan 07/17/19 13:48 Completed XR chest 1V vasquez ble [id number] Stat Exams 07/15/19 22:26 Completed CV echo limited 9 [id number] Routine Ultrasound 07/17/19 03:29 Completed Pending at discharge Category Date Time Status Arterial Blood Ga s Full Routine Lab 07/15/19 22:45 Results Blood Culture Sta t Lab 07/15/19 23:16 Results Blood Culture Sta t Lab 07/18/19 15:58 Results Labs from last 24 hours 07/19/19 07/19/19 05:41 05:41 PT 22.50 H INR 1.91 H Sodium 134 L Potassium 3.9 Chloride 103 Carbon Dioxide 23 Anion Gap 11.9 BUN 20 Creatinine 0.8 Glucose 94 Calculated Osmolal ity 274 L Calcium 8.7 Total Bilirubin 0.3 AST 24 ALT 25 Alkaline Phosphata se 74 Total Protein 6.0 L Albumin 2.5 L Globulin 3.5 Addt'l Data from Hospital Stay: ECHO Normal left ventricular size and systolic function, EF 65% . No gross wall motion normalities Minimally thickened aortic and mitral valves. Echo-free space around the left ventricle, suggestive of small to moderate pericardial effusion. There are no intracardiac masses. Compared to the study from 09/02/2017, the pericardial effusion appears to be new CT chest IMPRESSION: 1. There is a moderate to large size pericardial effusion. 2. Nonspecific bibasilar consolidation is present left greater than right, consistent with atelectasis, edema, and or pneumonic infiltrates. Probable trace pleural effusions versus pleural thickening. 3. Severe emphysematous changes. CT abd/pelvis IMPRESSION: 1. Multiple liver cysts. 2. Distal abdominal aortic aneurysm measuring 3.7 cm in greatest dimension. No evidence of leak. 3. The urinary bladder is very distended. Please correlate if the patient is having difficulty voiding. There is also a bladder calculus. Prostatomegaly and diffuse mild bladder wall thickening is noted compatible with chronic outlet obstructive changes. No hydronephrosis. 4. No acute abnormality in the abdomen or pelvis. Vitals: Last Vital Signs Temp 98.1 F 07/19/19 11:10 Pulse 82 07/19/19 11:10 Resp 18 07/19/19 11:10 BP 105/69 07/19/19 11:10 Pulse Ox 95 07/19/19 11:10 Discharge Plan Discharge Patient Disposition: Home, Self-Care Condition: Stable Prescriptions: New propranolol 20 mg Tablet 40 mg PO BID Qty: 2 RF: 0 alfuzosin 10 mg Tablet Extended Release 24 Hr 10 mg PO DAILY Qty: 30 RF: 0 Atrovent HFA 17 mcg/actuation Hfa Aerosol Inhaler 2 puff inhalation Q4H PRN (Reason: shortness of breath or wheezing) Qty: 12.9 RF: 2 Ventolin HFA 90 mcg/actuation HFA aerosol inhaler 2 inh INHALATION Q4H PRN (Reason: shortness of breath or wheezing) Qty: 18 RF: 2 cefuroxime axetil 250 mg tablet 250 mg PO BID Qty: 10 RF: 0 diltiazem HCl 60 mg tablet 30 mg PO Q8H Qty: 45 RF: 1 Continued propranolol 60 mg capsule,extended release 24 hr 60 mg PO .AT HS RF: 0 amiodarone [Pacerone] 100 mg tablet 50 mg PO DAILY RF: 0 primidone 50 mg tablet 50 mg PO BID RF: 0 warfarin 5 mg tablet 5 mg PO DAILY Qty: 30 RF: 4 Changed lisinopril 20 mg tablet 10 mg PO DAILY Qty: 0 RF: 0 Discharge Orders: Discharge Order (Routine); Ordered 07/19/19 Ordered By: Caitlin Dudley Other Ambulatory Orders: DME: Oxygen (Order) Location: None Selected Ordered By: Caitlin Dudley Pulmonary Function Screen with Bronchodilator (Routine) Timeframe: 1 Week Facility: [facility] - Location: Respiratory Therapy Ordered By: Nataly Palma [place] [facility] [place] Tom Pulido MD [Primary Care Provider] - 07/26/19 1:30 pm (Please follow up on FridayJuly 25 at 130 pm) Cyrus Alvarenga MD [Physician] - 1-3 days (Dr. Alvarenga's office will call you with an appointment for urinary retention, bladder stones, UTI ) Shira Amaya MD [Physician] - 07/26/19 3:15 pm (Please [place]. Amaya [place] [facility] [place] 25 at 315pm[place] Discharge Diet: Low Salt Discharge Activity: Increase activity as tolerated Patient Instructions: Cefuroxime (By mouth), Diltiazem (By mouth), Albuterol (By breathing), Alfuzosin (By mouth), Atrial Fibrillation (DC), Urinary Tract Infection in Men (DC), Using Oxygen at Home (DC), Sepsis (DC) Activity Restrictions/Additional Instructions: Be very careful with your oxygen tubing and catheter bag when walking, and especially if you decide to try to work. Use cane or other assistive device when walking Discharge Date/Time: 07/19/19 14:40 Discharge Attestations Time Spent in Discharge Care*: greater than 30 min Quality Metrics Clinical Quality Measures During this hospital stay, did patient experience: None Coding Level of Care Code Acute Featherer for Chg Fwd Diagnoses Sepsis A41.9 Sepsis type: sepsis due to unspecified organism Sepsis acute organ dysfunction status: without acute organ dysfunction Acute UTI N39.0 Bladder stone N21.0 Urinary retention R33.9 Atrial fibrillation with RVR I48.91 Pleuritic chest pain R07.81 Suspected COVID-19 virus infection Z20.828 Essential (primary) hypertension I10 Bronchiectasis J47.1 Bronchiectasis type: with acute exacerbation Hypoxemia requiring supplemental oxygen R09.02; Z99.81 AF (paroxysmal atrial fibrillation) I48.0 Chronic anticoagulation Z79.01 Pericardial effusion I31.3 Essential tremor G25.0 Osteoarthritis of both knees M17.4 Osteoarthritis type: other secondary
--- NOTE | 2019-07-19 14:36 | PC.NURSE ---
PATIENT GIVEN DISCHARGE INSTRUCTIONS AND VERBALIZED UNDERSTANDING ; PATIENT SON GOT O2 FROM [facility] AND HAD IT READY FOR PATIENT UPON DISCHARGE ; IV REMOVED AND PRESSURE DRESSING APPLIED WITH NO BLEEDING NOTED ; PATIENT DENIES ANY INCREASE IN SOB OR CP ; VSS ; PATIENT TO POV VIA WHEELCHAIR WITH O2
--- NOTE | 2019-07-21 11:12 | PC.SOCIAL ---
Spoke with Dr Dudley. Order given to switch Ventolin to Pro Air same instructions. Notified [facility] pharmacy in [facility]
== END 2019-07-19 14:40 | disposition home or self-care (01) | DRG 872 ==
LOC: ER 23:11 → ICU 07-16 03:00 → MEDSURG 07-17 19:25
PROVIDERS: Student in an Organized Health Care Education/Training Program; Admitting Provider Internal Medicine; Emergency Provider Emergency Medicine; PCP Internal Medicine; Visit Provider Hospitalist
DX: A41.9 Sepsis, unspecified organism (principal); N39.0 Urinary tract infection, site not specified; I48.20 Chronic atrial fibrillation, unspecified; N17.9 Acute kidney failure, unspecified; N13.8 Other obstructive and reflux uropathy; I31.3 Pericardial effusion (noninflammatory); I50.9 Heart failure, unspecified; I11.0 Hypertensive heart disease with heart failure; R31.9 Hematuria, unspecified; Z79.01 Long term (current) use of anticoagulants; G25.0 Essential tremor; M17.0 Bilateral primary osteoarthritis of knee; R07.81 Pleurodynia; Z20.828 Contact with and (suspected) exposure to other viral communicable diseases; M25.512 Pain in left shoulder; N21.0 Calculus in bladder; N40.1 Benign prostatic hyperplasia with lower urinary tract symptoms; R33.8 Other retention of urine; J43.9 Emphysema, unspecified; R09.02 Hypoxemia; I71.4 Abdominal aortic aneurysm, without rupture
CPT/HCPCS: 12345; 36415; 36600; 51702; 71045; 71250; 74176; 80051; 80053; 81001; 82728; 82810; 83605; 83615; 83735; 83880; 83986; 84145; 84153; 84484; 85025; 85378; 85610; 86140; 87040; 87086; 87635; 87804; 93005; 93308; 94640; 94660; 96372; 99284; J0696; J1650; J1940; J2543; J3490; J3535; J7614

== ENCOUNTER 2019-08-19 08:29 | Outpatient (CLI) | payer MEDICARE, SELFPAY ==
--- NOTE | 2019-08-19 08:00 | XR_ITS ---
WS: [id number] KUB, 08/19/2019 Clinical Data: BLADDER STONE Comparison: CT chest abdomen and pelvis, 07/17/2019. Findings: There is a 1.6 cm bladder stone. There is a large amount of fecal material throughout the colon. Ther e is air in the small bowel and colon. No abnormal intra-abdominal masses are seen. Degenerative beck ges of the lumbar vertebral bodies is seen. Degenerative narrowing of both hips is present. XR/XR KUB [id number] Impression: 1. 1.6 cm bladder stone. 2. Large amount of fecal material throughout the colon.
== END 2019-08-19 08:30 | disposition home or self-care (01) ==
LOC: RAD 08:35
PROVIDERS: PCP Internal Medicine; Visit Provider Urology
DX: N21.0 Calculus in bladder (principal)
CPT/HCPCS: 74018

== ENCOUNTER 2019-11-01 12:18 | Outpatient (CLI) | payer MEDICARE, SELFPAY ==
--- NOTE | 2019-11-01 12:45 | USCV_ITS ---
Krishna La Age: 74 Gender: M : 1945 Exam Date: 11/01/2019 12:29 Ordering Phys: Shira Amaya MD ([email or web address]) Technologist: Frank Corey Exam Location: [place] Indication: ? PER EFF BP: 140 / 72 HR: Rhythm: Sinus Technical Quality: Good MEASUREMENTS (Male / Female) Normal Values 2D ECHO LV Ejection Fraction MOD 2C 63.3 % LV Ejection Fraction 2C AL 64.9 % LA Diameter 3.9 cm LA Width 3.8 cm LA Height 4.0 cm RA Width 3.1 cm RA Height 4.8 cm M-MODE LV Diastolic Diameter MM 5.9 cm 4.2 - 5.9 / 3.9 - 5.3 cm LV Systolic Diameter MM 4.3 cm LV Ejection Fraction MM Teich 50.3 % IVS Diastolic Thickness MM 1.0 cm 0.6 - 1.0 / 0.6 - 0.9 cm IVS Systolic Thickness MM 1.5 cm LVPW Diastolic Thickness MM 1.0 cm 0.6 - 1.0 / 0.6 - 0.9 cm LVPW Systolic Thickness MM 1.9 cm RV Diastolic Diameter MM 1.7 cm Aortic Annulus Diameter 3.6 cm LA Ao Ratio MM 1.1 MV E Point Septal Separation 0.8 cm FINDINGS Left Ventricle Normal left ventricular size and systolic function. Left ventricle ejection fraction estimated at 58%. No regional wall motion abnormality. Right Ventricle Normal right ventricular size and systolic function. Right Atrium Normal right atrial size. Left Atrium Moderately increased left atrial size. Mitral Valve Structurally normal mitral valve. Aortic Valve Structurally normal trileaflet aortic valve. Tricuspid Valve Structurally normal tricuspid valve. Pulmonic Valve Pulmonic valve not well visualized. Pericardium No pericardial effusion. Aorta Normal-sized aortic root. CONCLUSIONS 1. This is a limited 2D echo only. 2. Normal left ventricular size and systolic function. Left ventricle ejection fraction estimated at 58%. No regional wall motion abnormality. 3. No pericardial effusion. 4. When compared to previous echocardiogram dated 07/17/2019, there is no pericardial effusion now. Shira Amaya MD (Electronically Signed) Final Date: 02 November 2019 13:16 S
== END 2019-11-01 12:19 | disposition home or self-care (01) ==
LOC: RAD 12:19
PROVIDERS: PCP Internal Medicine; Visit Provider Internal Medicine Cardiovascular Disease
DX: I31.3 Pericardial effusion (noninflammatory) (principal)
CPT/HCPCS: 93308

== ENCOUNTER → 2020-04-17 10:56 | Outpatient (BNVA) | payer MEDICARE, SELFPAY | PROVIDERS: PCP Internal Medicine; Visit Provider Internal Medicine Cardiovascular Disease | DX: I31.3 Pericardial effusion (noninflammatory) (principal); I10 Essential (primary) hypertension; I48.0 Paroxysmal atrial fibrillation; Z51.81 Encounter for therapeutic drug level monitoring; Z79.899 Other long term (current) drug therapy; J47.1 Bronchiectasis with (acute) exacerbation; N21.0 Calculus in bladder; I48.91 Unspecified atrial fibrillation | CPT/HCPCS: 80053; 84443; 85025; 85610 ==

== ENCOUNTER → 2020-04-18 16:55 | Outpatient (BNVA) | payer MEDICARE, SELFPAY | PROVIDERS: PCP Internal Medicine; Visit Provider Internal Medicine Cardiovascular Disease | DX: I31.3 Pericardial effusion (noninflammatory) (principal); I10 Essential (primary) hypertension; I48.0 Paroxysmal atrial fibrillation; Z51.81 Encounter for therapeutic drug level monitoring; Z79.899 Other long term (current) drug therapy; J47.1 Bronchiectasis with (acute) exacerbation; N21.0 Calculus in bladder | CPT/HCPCS: 84439; 84481 ==

== ENCOUNTER → 2020-06-20 10:00 | Outpatient (BNVA) | payer MEDICARE, SELFPAY | PROVIDERS: PCP Internal Medicine; Visit Provider Internal Medicine | DX: I48.0 Paroxysmal atrial fibrillation (principal); R53.81 Other malaise | CPT/HCPCS: 80053; 83550; 84443; 85025 ==

== ENCOUNTER → 2020-07-25 11:40 | Day surgery (SDC) | payer MEDICARE, SELFPAY | PROVIDERS: PCP Internal Medicine; Visit Provider Urology | DX: Z01.818 Encounter for other preprocedural examination (principal) | CPT/HCPCS: 93005 ==

== ENCOUNTER → 2020-07-31 14:26 | Outpatient (BNVA) | payer MEDICARE, SELFPAY | PROVIDERS: PCP Internal Medicine; Visit Provider Nurse Practitioner Family | DX: N21.0 Calculus in bladder (principal); N40.1 Benign prostatic hyperplasia with lower urinary tract symptoms; Z20.822 Contact with and (suspected) exposure to COVID-19 | CPT/HCPCS: 87635 ==

== ENCOUNTER 2020-08-03 17:29 | Outpatient (CLI) | payer MEDICARE, SELFPAY ==
[2020-07-25 11:37] VITALS: BMI 22.6
--- NOTE | 2020-07-25 11:40 | ECG_ITS ---
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 Measurements Intervals [place] Rate: 58 P: 60 VT: 234 QRS: 59 QRSD: 151 T: 55 QT: 459 QTc: 452 Interpretive Statements SINUS BRADYCARDIA WITH FIRST DEGREE AV BLOCK INDETERMINATE AXIS RIGHT BUNDLE BRANCH BLOCK [120+ ms QRS DURATION, UPRIGHT V1, 40+ ms S IN I/aVL/V4/V5/V6] Compared to ECG 07/18/2019 15:13:03 First degree AV block now present Indeterminate axis now present Right bundle-branch block now present Atrial fibrillation no longer present Incomplete right bundle-branch block no longer present ST (T wave) deviation no longer present Electronically Signed On 07-26-2020 7:03:14 CDT by Shira Amaya M.D. [email or web address]
[2020-07-25 12:23] LABS: INR 2.08 (0.8-1.2)
[2020-07-25 12:24] LABS: Partial Thromboplastin Time 34.9 SECONDS (23.9-36.7)
[2020-07-25 12:28] LABS: Alanine Aminotransferase 7 U/L (0-41); Albumin Level 3.6 g/dL (3.5-5.2); Alkaline Phosphatase 90 IU/L (40-130); Anion Gap 11.2 (5-19); Aspartate Amino Transferase 13 U/L (0-40); Blood Urea Nitrogen 14 mg/dL (8-23); Calcium 7.9 mg/dL (8.5-10.5); Carbon Dioxide 24 mmol/L (22-29); Chloride 106 mmol/L (98-107); Globulin 3.1 g/dL (1.3-4.6); Glucose 85 mg/dL (65-115); Osmolality Calculated 284 mOsm/kg (285-295); Potassium 4.2 mmol/L (3.5-5.1); Sodium 137 mmol/L (136-145); Total Bilirubin 0.4 mg/dL (0.15-1.2); Total Protein 6.7 g/dL (6.6-8.7)
[2020-07-25 12:59] LABS: Basophils # 0.1 10^3/uL (0.0-0.1); Basophils % 1.1 %; Eosinophils # 0.4 10^3/uL (0.0-0.8); Eosinophils % 8.3 %; Hematocrit 42.1 % (42.0-52.0); Hemoglobin 13.4 g/dL (11.7-16.6); Mean Corpuscular HGB Conc 31.8 g/dL (30.0-36.0); Mean Corpuscular Hemoglobin 30.8 pg (28.0-34.0); Mean Corpuscular Volume 96.8 fL (80-94); Mean Platelet Volume 10.9 fL (7.4-10.4); Monocytes # 0.7 10^3/uL (0.2-0.9); Monocytes % 14.1 %; Neutrophils % 54.3 %; Nucleated Red Blood Cells % 0 %; Platelet Count 240 10^3/cmm (130-400); Red Blood Count 4.35 10^6/uL (4.1-5.3); Red Cell Distribution Width 13.5 % (12.1-15.1); White Blood Count 4.6 10^3/uL (4.0-10.0)
--- NOTE | 2020-07-25 13:12 | ANES.PREANE2 ---
Pre-Anesthetic Assessment Pre-Anesthetic Assessment: Height/Weight: Height 1.85 m Weight 78.018 kg Preop Diagnosis: BPH with obstruction/retention,, cystolitholapaxy Proposed Procedure: Operation Date: 08/03/20 12:00 Proposed Procedures p Cystolitholapaxy 88059 57246 N40.1(Not Applicable) - Cyrus Alvarenga MD s Cystoscopy(Not Applicable) - Cyrus Alvarenga MD s TRANSURETHRAL RESECTION/VAPORIZATION OF PROSTATE(Not Applicable) - Cyrus Alvarenga MD Was Beta Angely taken within 24 hours: Yes Was Clonidine taken within 24 hours: N/A Social: Social History: Tobacco (h/o smoking) and No alcohol Exam: Pre-Anes Outpt Exam: alert, oriented x 3 and regular rate & rhythm Airway: Submandibular: WNL Cervical ROM: WNL MP: 2 Dentition: False Pulmonary: Pulmonary: COPD CV/HEM: CV/HEM: Afib, Arrythmia (SVT, 1st deg AV blk) and HTN Musc/skel: Musc/skel: OA/DJD and Weakness Anesthetic Plan: ASA status: 3 Anesthesia: General Risk of > 500 ml blood loss (7ml/kg in children): No PFSH Anesthesia PFSH: Medical History (Updated 07/18/20 @ 10:16 by Tom Pulido MD) 1st degree AV block AF (paroxysmal atrial fibrillation) Atrial fibrillation Benign prostatic hyperplasia with lower urinary tract symptoms Bladder stone Chronic anticoagulation Essential (primary) hypertension Headache Hypotension, unspecified Osteoarthritis of both knees RBBB SVT (supraventricular tachycardia) Surgical History History of tonsillectomy and adenoidectomy Family History Father Cancer Mother , at age 56 Heart attack Social History Smoking and tobacco status: never smoked Alcohol intake: current Alcohol intake frequency: holidays/special occasions only Marital status: Current occupational status: retired History of recent travel: No Data Anesthesia CBC & Chem 7: 07/25/20 11:45 07/25/20 11:45 Other Labs: Laboratory Results - last 48 hr 07/25/20 07/25/20 07/25/20 11:45 11:45 11:45 WBC 4.6 RBC 4.35 Hgb 13.4 Hct 42.1 MCV 96.8 H MCH 30.8 MCHC 31.8 RDW 13.5 Plt Count 240 MPV 10.9 H Neut % (Auto) 54.3 Lymph % (Auto) 22.0 Scurry % (Auto) 14.1 Eos % (Auto) 8.3 Baso % (Auto) 1.1 Neut # (Auto) 2.50 Lymph # (Auto) 1.0 Scurry # (Auto) 0.7 Eos # (Auto) 0.4 Baso # (Auto) 0.1 Nucleated RBC % (auto) 0 Nucleated RBCs # 0.0 PT 23.80 H INR 2.08 H APTT 34.9 Sodium 137 Potassium 4.2 Chloride 106 Carbon Dioxide 24 Anion Gap 11.2 BUN 14 Creatinine 0.6 L GFR Calculation Not Reportable Glucose 85 Calculated Osmolality 284 L Calcium 7.9 L Total Bilirubin 0.4 AST 13 ALT 7 Alkaline Phosphatase 90 Total Protein 6.7 Albumin 3.6 Globulin 3.1 Cardiac Studies: No Data to Display
[2020-08-03] VITALS (11 sets, daily range): BP systolic 90–175; BP diastolic 61–98; PULSE 59–78; RESP 15–22; TEMP 36.2–36.7; O2SAT 94–99
[2020-08-03] MEDS: sodium chloride 0.9% 1,000 ML 30 ML IV ×2 (13:56→18:52)
--- NOTE | 2020-08-03 14:16 | P.ANESUD_ITS ---
Pre-Anesthetic Update Pre-Anesthetic Assessment: Date of Surgery/Procedure: 08/03/20 Preop Jeni gnosis: BPH with obstruction/retention,, cystolitholapaxy Proposed Procedure: Operation Date: 08/03/20 14:45 Proposed Procedures p Cystolitholapaxy 97022 00070 N40.1(Not Applicable) - Cyrsu Alvarenga MD s Cystoscopy(Not Applicable) - Cyurs Alvarenga MD s TRANSURETHRAL RESECTION/VAPORIZATION OF PROSTATE(Not Applicable) - Cyrus Alvarenga MD Any changes to Pre-Anesthetic Assessment?: No Last Intake: Intake Last Liquid Date 08/03/20 Last Liquid Time 08:00 Last Solid Date 08/02/20 Last Solid Time 19:00 Vitals: Temperature 97.5 F L 08/03/20 13:37 Temperature Source Temporal Artery S can 08/03/20 13:37 Pulse Rate 65 08/03/20 13:37 Respiratory Rate 15 08/03/20 13:37 Blood Pressure 172/92 08/03/20 13:37 Blood Pressure Mago n 118 08/03/20 13:37 Pulse Oximetry 96 08/03/20 13:37 Oxygen Delivery Me thod 08/03/20 13:37 Exam: Pre-Anes Outpt Exam: alert, oriented x 3, clear to auscultation bilaterally and regular rate & rhythm Cardiac Studies: 2 No Data to Display
--- NOTE | 2020-08-03 15:14 | W.PM.OPSUD ---
Surgery/Procedure H&P Update DATE OF PROCEDURE: August 03, 2020 DATE H&P PERFORMED: 07/12/20 H&P UPDATE INFORMATION: I have reviewed H&P completed within last 30 days, I have examined patient prior to procedure, No changes to prior documentation and H&P is in [facility] EMR on date indicated PREOP DIAGNOSIS: BPH with obstruction/retention,, cystolitholapaxy PLANNED PROCEDURE: Operation Date: 08/03/20 14:45 Proposed Procedures p Cystolitholapaxy 54065 38170 N40.1(Not Applicable) - Cyrus Alvarenga MD s Cystoscopy(Not Applicable) - Cyrus Alvarenga MD s TRANSURETHRAL RESECTION/VAPORIZATION OF PROSTATE(Not Applicable) - Cyrus Alvarenga MD
--- NOTE | 2020-08-03 15:16 | PM.OP ---
Operative Report Date of procedure: August 03, 2020 Pre-op Diagnosis: BPH with obstruction/retention,, cystolitholapaxy Post-op diagnosis: same Procedure Done: 1. Cystoscopy, transurethral resection/vaporization of the prostate 2. Cystolitholapaxy <2.5 sent Pathology: 1. Prostate chips 2. Bladder stone fragments Surgeon: Lyle Anesthesia: General Complications: Not excessive Findings: 1. Trilobar enlargement of the prostate with some intravesical protrusion. Large capacity bladder. 2. Stone easily defined and fragment Condition: stable Disposition: PACU Brief History: Krishna is a very pleasant 75-year-old white male with a history of urinary retention diagnosed in July 2019. He had been preceded by longstanding progressive lower urinary tract symptoms. Postvoid residual at time of catheter placement was about 1100 cc in his bladder. He did have significant discomfort with that. He was treated with maximal medical therapy for hopes of recovery of spontaneous voiding in addition to self clean intermittent catheterization. Unfortunately did not have spontaneous recovery. He elected to attempt baptism of normal voiding via TURP/TUVP. He also was known to have a bladder stone and it was anticipated that this would be treated at the same time. We had a couple long discussions regarding the potential for bladder damage to be the dictating factor for not resuming normal voiding. If that was the case he might not be able to have enough recovery of bladder function to spontaneously void but he was willing to take that chance in hopes that he would at least be able to significantly improve his lot. Admitted now for the above procedure. Procedure: After routine preoperative evaluation examination and obtaining of informed consent he was taken to the operating suite on 08/03/2020 where general anesthesia was administered without difficulty after appropriate timeout was performed, SCDs confirmed Functioning, preoperative antibiotics administered, beta-verónica protocol confirmed. Prepped and draped in usual sterile fashion in dorsolithotomy position paying careful attention to avoiding pressure points. 21 Andorran cystoscope with 30 degree lens was introduced into the urethral meatus and advanced into the bladder under videoscopy. The bladder was systematically examined. The stone was easily identified. Prostate showed trilobar enlargement of the with intravesical protrusion. There were no mucosal abnormalities of the bladder. The 21 Andorran sheath was exchanged for 23 Andorran sheath and the the stone was then fragmented with manual lithotrite the smaller pieces were easily cleared with Ellik evacuator. Bladder wall was not injured and it was confirmed to be intact before proceeding with a TURP. The urethra was then calibrated with Shannon sounds and easily accommodated 30 Andorran. The Vtap bipolar system was utilized with super loop, supersect, and button probes. Initial resection was begun at the bladder neck with the super loop. The large intravesical protruding median lobe was targeted first and then circumferential resection of the additional prostate tissue at the bladder neck down to the circular fibers of the bladder neck. The left lateral lobe from about the 1 o'clock position from the bladder neck out to the distal prostate but not distal to the verumontanum. The right lateral lobe was then resected in the same longitudinal extent. The depth was down to the surgical capsule. Floor the prostate was then harvested. Chips were evacuated from the bladder with a [employer] evacuator. The button probe was then utilized for further vaporization of residual tissue and sculpting of the prostatic fossa. Hemostasis was obtained and confirmed to be meticulous. All chips were confirmed to be out of the bladder. Bladder was drained with a 22 Andorran three-way Raymundo catheter with 30 cc balloon. Light CBI was initiated and the efflux was clear. He tolerated procedure well without complications and was awakened in the operating room and returned to the cart room in stable condition. PLANS: 1. Maintain on observation status overnight 2. Reassess in the morning. Anticipate probably discharge in with a catheter in for further healing before voiding trial in the clinic next week.
[2020-08-03] MEDS: levofloxacin-dextrose 5 % 750 MG/150 ML PREMIX 100 MG IV (15:40)
[2020-08-03] MEDS: lidocaine 2% Urojet 20 mL XX (15:52)
[2020-08-03] MEDS: docusate sodium 100 mg Capsule PO (18:51)
[2020-08-03] MEDS: primidone 50 mg Tablet PO (18:53)
--- NOTE | 2020-08-03 19:22 | PC.NURSE ---
CBI Attempted to contact PACU to clarify the amount of irrigation that was instilled vs emptied. Unable to reach anyone. Urine upon arrival to floor was clear/pale yellow. Zero output was documented prior to arrival to unit.
[2020-08-04 03:35] VITALS: BP 158/74; PULSE 69; RESP 18; TEMP 36.4; O2SAT 97
[2020-08-04] MEDS: levoFLOXacin 500 mg Tablet PO (05:38)
--- NOTE | 2020-08-04 05:48 | PC.NURSE ---
SHIFT SUMMARY Has had a good night without c/o pain or discomfort. Raymundo draining well with urine staying clear yellow to occ light pink. CBI at a slow drip. IV fluids infusing at 30ml/hr rate and taking po fluids well. Says he is hungry this morning. Says he should get to go home today.
--- NOTE | 2020-08-04 07:25 | PM.DCS ---
Discharge Providers Date of Admission: 08/03/20 17:29 Date of Discharge: August 04, 2020 Attending Provider at Admission: Cyrus Alvarenga MD Attending Provider at Discharge: Cyrus Alvarenga MD Primary Care Provider: Tom Pulido MD Diagnoses at Discharge Discharge Diagnosis (1) Benign prostatic hyperplasia with lower urinary tract symptoms: Status: Acute (2) Bladder stone: Status: Acute (3) Acute UTI: Status: Acute (4) Urinary retention: Status: Acute Reason for Visit Reason for Visit: BPH with bladder Hospital Course Hospital Course Admitted on the day of the procedure which went well. He was found to have a large prostate with trilobar involvement. The bladder stone was completely fragmented and removed. Postoperative course was unremarkable. CBI was weaned off. Urine remained clear. It was decided to discharge him with the catheter in place in order to allow further healing before voiding trial. There is concerned that his bladder function may still be compromised enough that he may have to cath for a while. We will plan on seeing him back next week for voiding trial. We will also conduct SCIC again to make sure that he can get a catheter in if he needs to. Physical Exam Const: COMMON NORMALS: no acute distress, alert and well nourished GENERAL APPEARANCE: well kempt and well developed ORIENTATION/CONSCIOUSNESS: not confused Neck/C-Spine: COMMON NORMALS: full ROM GENERAL: Yes normal visual inspection Resp: COMMON NORMALS: normal respiratory effort EFFORT & INSPECTION: No labored and No Actively coughing Neuro: SENSORIUM/ORIENTATION: Yes alert Psych: COMMON NORMALS: mental status grossly normal APPEARANCE: Yes grossly normal and Yes well kempt ATTITUDE: Yes calm and Yes engaged Skin: COMMON NORMALS: no rashes or lesions noted and no jaundice GENERAL SKIN EXAM: no rashes or lesions noted Urinary Catheter Management^: 3-way Urethral CBI: Cath Placed During This Visit: yes Reason for Continuing Indwelling Catheter: Acute Urinary Retention or Obstruction Urinary Catheter Date of Insertion: 08/03/20 Urinary Catheter Time of Insertion: 17:05 Discharge Data Data Completed and Pending: Pending at discharge Category Date Time Status Stone Analysis Ro utine Lab 08/03/20 16:34 Ordered Pathology: Surgic al [PTH] Routine Pth 08/03/20 17:19 Ordered Vitals: Last Vital Signs Temp 97.6 F 08/04/20 03:35 Pulse 69 08/04/20 03:35 Resp 18 08/04/20 03:35 BP 158/74 08/04/20 03:35 Pulse Ox 97 08/04/20 03:35 Discharge Plan Discharge Patient Disposition: Home Condition: Stable Prescriptions: New levofloxacin 500 mg tablet 500 mg PO DAILY 7 Days Qty: 7 RF: 1 Continued (DME) oxygen 2L at bedtime See Rx Instructions .Route .MEDSUPPLY Qty: 1 RF: 0 alfuzosin 10 mg tablet extended release 24 hr 10 mg PO DAILY Qty: 30 RF: 12 furosemide [Lasix] 20 mg tablet 20 mg PO DAILY PRN (Reason: edema) Qty: 30 RF: 2 lisinopril 20 mg tablet 40 mg PO DAILY Qty: 60 RF: 3 primidone 50 mg tablet 50 mg PO BID Qty: 60 RF: 3 Ventolin HFA 90 mcg/actuation HFA aerosol inhaler 2 inh INHALATION Q4H PRN (Reason: shortness of breath or wheezing) Qty: 18 RF: 2 amiodarone 200 mg tablet 50 mg PO DAILY Qty: 10 RF: 5 propranolol 60 mg capsule,extended release 24 hr 60 mg PO .AT HS Qty: 30 RF: 3 Held warfarin 5 mg tablet 7.5 mg PO DAILY RF: 0 Hold Instructions: Resume on 08/10/20. Discharge Orders: Discharge Order (Routine); Ordered 08/04/20 Ordered By: Cyrus Alvarenga Referrals: Cyrus Alvarenga MD [Physician] - 08/09/20 (Voiding trial) Discharge Diet: Usual diet Discharge Activity: Limit activity as instructed Patient Instructions: Post Anesthesia Care Activity Restrictions/Additional Instructions: 1. It is normal to see some blood around the catheter as well as in the urine. As long as the catheter is flowing well that poses no problem. 2. We will leave the catheter in until I see you in the office and at that point we will do a voiding trial. 3. Continue to drink enough fluids to keep your urine clear to light pink. 4. Avoid lifting >10 pounds. 5. The hospital perforating machine operator can reach me after hours if you have any concerns or questions. Discharge Attestations Time Spent in Discharge Care*: less than 30 min Quality Metrics Clinical Quality Measures During this hospital stay, did patient experience: None Coding Level of Care Code Acute Chg FW DC note Exam Detailed Diagnoses Benign prostatic hyperplasia with lower urinary tract symptoms N40.1 Bladder stone N21.0 Acute UTI N39.0 Urinary retention R33.9
[2020-08-04 09:36] VITALS: PULSE 73; RESP 17; O2SAT 96
[2020-08-04] MEDS: amiodarone 200 mg Tablet 50 MG PO (10:28)
[2020-08-04] MEDS: alfuzosin 10 mg ER Tablet PO (10:29)
[2020-08-04] MEDS: lisinopril 20 mg Tablet 40 MG PO (10:30)
[2020-08-04] MEDS: primidone 50 mg Tablet PO (10:30)
== END 2020-08-04 11:55 | disposition home or self-care (01) ==
LOC: MEDSURG 08-04 07:24 → OPMS 08-08 08:16
PROVIDERS: Anesthesiology; PCP Internal Medicine; Visit Provider Urology
PROC: 0TCB8ZZ Extirpation of Matter from Bladder, Via Natural or Artificial Opening Endoscopic (ICD-10-PCS; CPT 52318; principal; 2020-08-03 14:45)
PROC: 0TJB8ZZ Inspection of Bladder, Via Natural or Artificial Opening Endoscopic (ICD-10-PCS; CPT 52000; 2020-08-03 14:45)
PROC: 0VT08ZZ Resection of Prostate, Via Natural or Artificial Opening Endoscopic (ICD-10-PCS; CPT 52601; 2020-08-03 14:45)
DX: N40.1 Benign prostatic hyperplasia with lower urinary tract symptoms (principal); N13.8 Other obstructive and reflux uropathy; N21.0 Calculus in bladder; N39.0 Urinary tract infection, site not specified; R33.9 Retention of urine, unspecified
CPT/HCPCS: 52318; 52601; 36415; 80053; 85025; 85610; 85730; 88300; 88305; 96365; G0378; J1956; J2370; J2704; J3010; J3490; J7030

== ENCOUNTER → 2020-10-16 10:07 | Outpatient (BNVA) | payer MEDICARE, SELFPAY | PROVIDERS: PCP Internal Medicine; Visit Provider Internal Medicine Cardiovascular Disease | DX: I31.3 Pericardial effusion (noninflammatory) (principal); I10 Essential (primary) hypertension; I48.0 Paroxysmal atrial fibrillation; Z51.81 Encounter for therapeutic drug level monitoring; J47.1 Bronchiectasis with (acute) exacerbation; Z79.899 Other long term (current) drug therapy; N21.0 Calculus in bladder; I48.91 Unspecified atrial fibrillation | CPT/HCPCS: 80061; 84439; 84443; 84481 ==

== ENCOUNTER 2021-03-03 16:21 | Inpatient (IN) | payer MEDICARE, SELFPAY ==
[2021-03-03 16:23] VITALS: BP 176/93; PULSE 66; RESP 19; TEMP 36.9; O2SAT 94; BMI 23.8
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
[2021-03-03] MEDS: acetaminophen 500 mg Tablet PO (16:42)
[2021-03-03 16:43] VITALS: BP 176/93; PULSE 71; O2SAT 94
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
--- NOTE | 2021-03-03 17:17 | XRR_ITS ---
PROCEDURE INFORMATION: Exam: XR Chest Exam date and time: 03/03/2021 5:17 PM Age: 75 years old Clinical indication: Screening exam; Other screening; Additional info: Pre op TECHNIQUE: Imaging protocol: XR of the chest. Views: 1 view. COMPARISON: CT chest abd pel wo con 07/17/2019 2:48 PM FINDINGS: Limitations: Study is made with lordotic positioning. Lungs: There are changes of pulmonary emphysema in both lungs. No focal infiltrate is identified. Pleural spaces: Unremarkable. No pleural effusion. No pneumothorax. Heart/Mediastinum: Heart is within normal limits of size. Vasculature: Atherosclerotic calcifications are present in the aortic arch. Bones/joints: Unremarkable. XR/XR chest 1V portable [id number] IMPRESSION: COPD. No acute infiltrate.
[2021-03-03 17:18] LABS: Alanine Aminotransferase 11 U/L (0-41); Albumin Level 3.6 g/dL (3.5-5.2); Alkaline Phosphatase 100 IU/L (40-130); Anion Gap 13.8 (5-19); Aspartate Amino Transferase 14 U/L (0-40); Blood Urea Nitrogen 13 mg/dL (8-23); Calcium 8.2 mg/dL (8.5-10.5); Carbon Dioxide 22 mmol/L (22-29); Chloride 105 mmol/L (98-107); Globulin 2.9 g/dL (1.3-4.6); Glucose 92 mg/dL (65-115); Osmolality Calculated 282 mOsm/kg (285-295); Potassium 4.8 mmol/L (3.5-5.1); Sodium 136 mmol/L (136-145); Total Bilirubin 0.2 mg/dL (0.15-1.2); Total Protein 6.5 g/dL (6.6-8.7)
[2021-03-03 17:25] LABS: Basophils # 0.1 10^3/uL (0.0-0.1); Basophils % 0.4 %; Eosinophils # 0.3 10^3/uL (0.0-0.8); Eosinophils % 2.5 %; Hematocrit 39.5 % (42.0-52.0); Lymphocytes # 1.3 10^3/uL (0.8-4.8); Lymphocytes % 9.6 %; Mean Corpuscular HGB Conc 32.9 g/dL (30.0-36.0); Mean Corpuscular Hemoglobin 31.7 pg (28.0-34.0); Mean Corpuscular Volume 96.3 fl (80-94); Monocytes # 1.5 10^3/uL (0.2-0.9); Monocytes % 10.9 %; Neutrophils # 10.21 10^3/uL (1.8-7.7); Neutrophils % 76.2 %; Nucleated Red Blood Cells % 0 %; Platelet Count 242 10^3/cmm (130-400); Red Cell Distribution Width 13.5 % (12.1-15.1); White Blood Count 13.4 10^3/uL (4.0-10.0)
[2021-03-03 17:58] LABS: INR 1.58 (0.8-1.2)
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
[2021-03-03 18:52] VITALS: BP 132/89; PULSE 76; O2SAT 94
[2021-03-03 20:12] VITALS: BP 159/83; PULSE 68; RESP 17; TEMP 37.1; O2SAT 96
[2021-03-03 20:19] VITALS: BMI 24.3
[2021-03-03 20:34] VITALS: RESP 18
[2021-03-03] MEDS: amlodipine 10 mg Tablet PO (20:34)
[2021-03-03] MEDS: phytonadione (ADULT) 10 mg/mL Ampule 1 mL 2.5 MG PO (20:34)
[2021-03-03] MEDS: primidone 50 mg Tablet PO (20:34)
[2021-03-03] MEDS: oxyCODONE 5 mg IR Tab/Cap 10 MG PO (20:34)
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
[2021-03-03] MEDS: cefTRIAXone 1,000 MG in sodium chloride 0.9% (plus) 50 ML 100 MG IV (21:50)
[2021-03-04] VITALS (20 sets, daily range): BP systolic 101–149; BP diastolic 57–78; PULSE 66–88; RESP 12–20; TEMP 36.3–37.7; O2SAT 90–98
--- NOTE | 2021-03-04 | SCC_ITS ---
Procedure Done: Open reduction internal fixation right intertrochanteric hip fracture utilizing short gamma nail 156.1 seconds of fluoroscopic guidance, for a cumulative dose of 18.35 mGy, was provided to Dr. Ryan by the radiology department. C-arm images of the RIGHT hip were saved for the patient's permanent record. [facility]
[2021-03-04] MEDS: HYDROmorphone 1 mg/mL INJ 1 mL 0.5 MG IVP ×2 (03:13→09:39)
[2021-03-04 04:38] LABS: Basophils % 0.3 %; Eosinophils % 0.5 %; Hematocrit 24.7 % (42.0-52.0); Lymphocytes # 0.8 10^3/uL (0.8-4.8); Lymphocytes % 10.4 %; Mean Corpuscular HGB Conc 48.6 g/dL (30.0-36.0); Mean Corpuscular Hemoglobin 50.8 pg (28.0-34.0); Mean Corpuscular Volume 104.7 fl (80-94); Monocytes # 1.2 10^3/uL (0.2-0.9); Neutrophils # 5.41 10^3/uL (1.8-7.7); Neutrophils % 72.4 %; Nucleated Red Blood Cells % 0 %; Platelet Count 186 10^3/cmm (130-400); Positive C 1; Red Blood Count 2.36 10^6/uL (4.1-5.3); Red Cell Distribution Width 16.6 % (12.1-15.1); White Blood Count 7.5 10^3/uL (4.0-10.0)
[2021-03-04 04:47] LABS: INR 1.45 (0.8-1.2)
[2021-03-04] MEDS: oxyCODONE 5 mg IR Tab/Cap 10 MG PO (06:32)
--- NOTE | 2021-03-04 07:00 | ECG_ITS ---
[facility] Test Date: 2021-03-04 Pat Name: Krishna La Department: Room: 269 Gender: Male Negative Stripper: : 1945 Requested By: Katheryn Fontanez Order Number: [id number] Herrera MD: Shira Amaya M.D. Measurements Intervals [place] Rate: 64 P: 78 FL: 217 QRS: 44 QRSD: 143 T: 38 QT: 453 QTc: 469 Interpretive Statements SINUS RHYTHM WITH FIRST DEGREE AV BLOCK RIGHT BUNDLE BRANCH BLOCK [120+ ms QRS DURATION, UPRIGHT V1, 40+ ms S IN I/aVL/V4/V5/V6] Compared to ECG 07/25/2020 12:00:46 Sinus bradycardia no longer present Indeterminate axis no longer present Electronically Signed On 03-05-2021 16:58:27 MEETING COORDINATOR by Shira Amaya M.D. [id number]
--- NOTE | 2021-03-04 08:40 | PM.PN ---
Subjective Subjective: Interval history: Seen this morning. He will be going for hip surgery today. Offers no complaints. He does state that he takes budesonide inhaler at home and has not had his dose this morning. Does not report any shortness of breath and feels well. No acute events overnight. Vitals/I&O/Wt Last Vital Signs Temp 97.5 F L 03/04/21 15:46 Pulse 66 03/04/21 15:52 Resp 12 03/04/21 15:46 BP 129/73 03/04/21 15:46 Pulse Ox 95 03/04/21 15:52 03/04/21 03/04/21 03/04/21 06:59 14:59 22:59 Intake Total 100 / 100 250 / 350 Output Total 550 / 550 100 / 100 50 / 150 Balance -550 / -500 0 / 0 200 / 200 Weight last 48 hrs Weight 83.518 kg Weight 82.1 kg Physical Exam Narrative: EXAM NARRATIVE: Appears stated age Saturating well on room air No lower extremity edema present. Does not appear clinically overloaded today. Lungs clear to auscultation with mild rhonchi present. Normal S1-S2, EOMI PERRLA, right leg rotated inwards slightly short. Nonfocal neuro exam Awake and alert Appropriate mood and affect Urinary Catheter Management^: Raymundo Latex: Cath Placed During This Visit: yes Reason for Continuing Indwelling Catheter: Acute Urinary Retention or Obstruction Urinary Catheter Date of Insertion: 03/03/21 Urinary Catheter Time of Insertion: 20:50 Data : 03/04/21 03:16 03/04/21 08:21 A&P Assessment and plan (1) Closed hip fracture: Status: Acute Qualifiers: Encounter type: initial encounter Laterality: right Qualified Code(s): S72.001A - Fracture of unspecified part of neck of right femur, initial encounter for closed fracture (2) Benign prostatic hyperplasia with lower urinary tract symptoms: Status: Acute (3) Essential tremor: Status: Chronic (4) AF (paroxysmal atrial fibrillation): Status: Chronic Additional A&P Information #Right hip fracture #Mechanical fall #History of A. fib, right bundle branch block, #RCRI low risk for 30-day risk of , [place] or cardiac arrest, no contraindication for surgical intervention #Orthopedic consulted #Chronic anticoagulation, INR 1.58, patient does not need FFP, would use low-dose vitamin K for now to bring INR less than 1.5 at this point, no active bleed, hemoglobin stable, no hemodynamic instability, We will restart patient's held medications after surgery. Holding propanolol, amiodarone and lisinopril. DVT prophylaxis SCDs N.p.o. Continue maintenance fluid Full code In case of any emergency, son should be notified Attestations Medical Necessity Statement*: Greater than 48-hour stay. 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
[2021-03-04] MEDS: amlodipine 10 mg Tablet PO (09:20)
[2021-03-04] MEDS: amiodarone 200 mg Tablet 50 MG PO (09:21)
[2021-03-04] MEDS: sennosides-docusate Tablet 2 TAB PO (09:23)
[2021-03-04 09:28] LABS: Blood Urea Nitrogen 15 mg/dL (8-23); Calcium 7.7 mg/dL (8.5-10.5); Carbon Dioxide 22 mmol/L (22-29); Chloride 105 mmol/L (98-107); Glucose 93 mg/dL (65-115); Magnesium 1.7 mg/dL (1.7-2.3); Osmolality Calculated 281 mOsm/kg (285-295); Sodium 135 mmol/L (136-145)
[2021-03-04 09:37] LABS: Anion Gap 13.6 (5-19); Potassium 5.6 mmol/L (3.5-5.1)
[2021-03-04] MEDS: budesonide 0.5 mg/2 mL Neb INHALATION (10:07)
--- NOTE | 2021-03-04 10:29 | ANES.PREANE2 ---
Pre-Anesthetic Assessment Pre-Anesthetic Assessment: Height/Weight: Height 1.85 m Weight 83.518 kg Temp Pulse Resp BP Pulse Ox 99.0 F 69 14 122/66 94 03/04/21 08:00 03/04/21 08:00 03/04/21 08:00 03/04/21 08:00 03/04/21 08:00 Preop Diagnosis: Right subtrochanteric femur fracture Proposed Procedure: Operation Date: 03/04/21 10:30 Proposed Procedures p Open Reduction Internal Fixation Right Hip - subtrochanteric hip fracture(Right) - Halle Ryan MD Familial anesthetic complications: None Was Beta Angely taken within 24 hours: N/A Was Clonidine taken within 24 hours: N/A Last intake: > 8 hrs Social: Social History: No alcohol and No tobacco Comment: former smoker Exam: Pre-Anes Outpt Exam: alert, oriented x 3, clear to auscultation bilaterally and regular rate & rhythm Airway: MP: 3 Dentition: Other (few teeth remaining) Pulmonary: Pulmonary: COPD (took nebulizer on floor) CV/HEM: CV/HEM: Afib (coumadin on friday) Comments: RBBB Neuropsych: Comments: essential tremor Anesthetic Plan: ASA status: 3 Anesthesia: General Risk of > 500 ml blood loss (7ml/kg in children): No Meds/Allergies Current Medications: Current Medications Generic Name Dose Route Start Last Admin Trade Name Freq PRN Reason Stop Dose Admin Amiodarone HCl 50 mg 03/04/21 09:00 03/04/21 09:21 Amiodarone 200 M g Tablet PO 50 mg DAILY ALEXANDRA Administration Amlodipine Besylat e 10 mg 03/03/21 19:15 03/04/21 09:20 Amlodipine 10 Mg Tablet PO 10 mg DAILY ALEXANDRA Administration Budesonide 0.5 mg 03/04/21 09:48 03/04/21 10:07 Budesonide 0.5 M g/2 Ml Neb INHALATION 0.5 mg DAILY.RESPIRATORY PRN Administration rhonci Hydromorphone HCl 0.5 mg 03/03/21 19:15 03/04/21 09:39 Hydromorphone 1 Mg/Ml Inj 1 Ml IVP 0.5 mg Q4H PRN Administration hip painna Oxycodone HCl 10 mg 03/03/21 19:15 03/04/21 06:32 Oxycodone 5 Mg I r Tab/Cap PO 10 mg Q4H PRN Administration SEVERE PAIN Primidone 50 mg 03/03/21 21:00 03/03/21 20:34 Primidone 50 Mg Tablet PO 50 mg BEDTIME ALEXANDRA Administration Senna/Docusate Sod ium 2 tab 03/04/21 09:00 03/04/21 09:23 Sennosides-Docus ate Tablet PO 2 tab BID ALEXANDRA Administration PFSH Anesthesia PFSH: Medical History (Updated 03/03/21 @ 21:21 by Halle Ryan MD) 1st degree AV block AF (paroxysmal atrial fibrillation) Atrial fibrillation Benign prostatic hyperplasia with lower urinary tract symptoms Bladder stone Chronic anticoagulation Essential (primary) hypertension Headache Hypotension, unspecified Osteoarthritis of both knees RBBB SVT (supraventricular tachycardia) Surgical History History of tonsillectomy and adenoidectomy Family History Father Cancer Mother , at age 56 Heart attack Social History Smoking and tobacco status: former smoker Alcohol intake: current Alcohol intake frequency: holidays/special occasions only Marital status: Current occupational status: retired History of recent travel: No Data Anesthesia CBC & Chem 7: 03/04/21 03:16 03/04/21 08:21 Other Labs: Laboratory Results - last 48 hr 03/03/21 03/03/21 03/03/21 16:50 16:50 17:31 WBC 13.4 H RBC 4.10 Hgb 13.0 Hct 39.5 L MCV 96.3 H MCH 31.7 MCHC 32.9 RDW 13.5 Plt Count 242 MPV 11.0 H Neut % (Auto) 76.2 Lymph % (Auto) 9.6 [place] % (Auto) 10.9 Eos % (Auto) 2.5 Baso % (Auto) 0.4 Neut # (Auto) 10.21 H Lymph # (Auto) 1.3 [place] # (Auto) 1.5 H Eos # (Auto) 0.3 Baso # (Auto) 0.1 Nucleated RBC % (auto) 0 Nucleated RBCs # 0.0 PT 19.20 H INR 1.58 H Sodium 136 Potassium 4.8 Chloride 105 Carbon Dioxide 22 Anion Gap 13.8 BUN 13 Creatinine 0.6 L GFR Calculation Not Reportable Glucose 92 Calculated Osmolality 282 L Calcium 8.2 L Magnesium Total Bilirubin 0.2 AST 14 ALT 11 Alkaline Phosphatase 100 Total Protein 6.5 L Albumin 3.6 Globulin 2.9 03/04/21 03/04/21 03/04/21 03:16 03:16 03:16 WBC 7.5 RBC 2.36 L Hgb 12.0 Hct 24.7 L D MCV 104.7 H D MCH 50.8 H D MCHC 48.6 H D RDW 16.6 H Plt Count 186 MPV 12.0 H Neut % (Auto) 72.4 Lymph % (Auto) 10.4 [place] % (Auto) 16.0 Eos % (Auto) 0.5 Baso % (Auto) 0.3 Neut # (Auto) 5.41 Lymph # (Auto) 0.8 [place] # (Auto) 1.2 H Eos # (Auto) 0.0 Baso # (Auto) 0.0 Nucleated RBC % (auto) 0 Nucleated RBCs # 0.0 PT 18.00 H INR 1.45 H Sodium Cancelled Potassium Cancelled Chloride Cancelled Carbon Dioxide Cancelled Anion Gap Cancelled BUN Cancelled Creatinine Cancelled GFR Calculation Cancelled Glucose Cancelled Calculated Osmolality Cancelled Calcium Cancelled Magnesium Cancelled Total Bilirubin AST ALT Alkaline Phosphatase Total Protein Albumin Globulin 03/04/21 08:21 WBC RBC Hgb Hct MCV MCH MCHC RDW Plt Count MPV Neut % (Auto) Lymph % (Auto) [place] % (Auto) Eos % (Auto) Baso % (Auto) Neut # (Auto) Lymph # (Auto) [place] # (Auto) Eos # (Auto) Baso # (Auto) Nucleated RBC % (auto) Nucleated RBCs # PT INR Sodium 135 L Potassium 5.6 H Chloride 105 Carbon Dioxide 22 Anion Gap 13.6 BUN 15 Creatinine 0.6 L GFR Calculation Not Reportable Glucose 93 Calculated Osmolality 281 L Calcium 7.7 L Magnesium 1.7 Total Bilirubin AST ALT Alkaline Phosphatase Total Protein Albumin Globulin Cardiac Studies: No Data to Display
[2021-03-04] MEDS: vancomycin 1,000 MG in sodium chloride 0.9% 250 ML 250 MG IV (10:30)
[2021-03-04] MEDS: acetaminophen 1,000 MG/100 ML PIGGYBACK 400 MG IV (13:10)
[2021-03-04] MEDS: ceFAZolin 1,000 mg SDV 1000 MG IRRIGATION (13:55)
--- NOTE | 2021-03-04 14:21 | XR_ITS ---
WS: [id number] Right hip, C-arm fluoroscopy, 03/04/2021 Clinical Data: ORIF RT HIP Comparison: Right hip, 03/03/2021 Findings: Repair of right intertrochanteric hip fracture with right hip nail and proximal intramedullary [place]. XR/XR hip RT 2-3V wo/w pel* [id number] Impression: Internal fixation of right hip fracture.
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
[2021-03-04] MEDS: fentaNYL 50 mcg/mL INJ 2mL IVP (15:14)
[2021-03-04] MEDS: acetaminophen 500 mg Tablet 1000 MG PO ×2 (17:34→22:47)
[2021-03-04] MEDS: primidone 50 mg Tablet PO (20:10)
[2021-03-05] VITALS (9 sets, daily range): BP systolic 94–119; BP diastolic 53–71; PULSE 73–97; RESP 16–18; TEMP 36.6–37.3; O2SAT 90–95
[2021-03-05] MEDS: oxyCODONE 5 mg IR Tab/Cap PO ×3 (02:26→20:33)
[2021-03-05 06:30] LABS: Glucose Point of Care 120 mg/dL (70-110)
[2021-03-05 06:34] LABS: INR 1.22 (0.8-1.2)
[2021-03-05 06:49] LABS: Anion Gap 12.3 (5-19); Blood Urea Nitrogen 12 mg/dL (8-23); Calcium 7.3 mg/dL (8.5-10.5); Carbon Dioxide 22 mmol/L (22-29); Chloride 104 mmol/L (98-107); Glucose 97 mg/dL (65-115); Magnesium 1.6 mg/dL (1.7-2.3); Osmolality Calculated 278 mOsm/kg (285-295); Potassium 4.3 mmol/L (3.5-5.1); Sodium 134 mmol/L (136-145)
[2021-03-05] MEDS: acetaminophen 500 mg Tablet 1000 MG PO ×3 (06:51→22:52)
[2021-03-05] MEDS: sennosides-docusate Tablet 2 TAB PO ×2 (08:01→17:32)
[2021-03-05] MEDS: amiodarone 200 mg Tablet 50 MG PO (08:01)
[2021-03-05 11:30] LABS: Glucose Point of Care 112 mg/dL (70-110)
[2021-03-05 11:32] LABS: Basophils % 0.3 %; Eosinophils # 0.1 10^3/uL (0.0-0.8); Eosinophils % 1.6 %; Hematocrit 30.9 % (42.0-52.0); Hemoglobin 9.8 g/dL (11.7-16.6); Lymphocytes # 0.9 10^3/uL (0.8-4.8); Lymphocytes % 12.7 %; Mean Corpuscular HGB Conc 31.7 g/dL (30.0-36.0); Mean Corpuscular Hemoglobin 31.5 pg (28.0-34.0); Mean Corpuscular Volume 99.4 fl (80-94); Monocytes # 1.4 10^3/uL (0.2-0.9); Monocytes % 18.9 %; Neutrophils # 4.84 10^3/uL (1.8-7.7); Nucleated Red Blood Cells % 0 %; Platelet Count 165 10^3/cmm (130-400); Red Blood Count 3.11 10^6/uL (4.1-5.3); Red Cell Distribution Width 13.8 % (12.1-15.1); White Blood Count 7.3 10^3/uL (4.0-10.0)
[2021-03-05] MEDS: enoxaparin 80 mg/0.8 mL Syringe SUBCUT ×2 (12:38→22:52)
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
[2021-03-05] MEDS: warfarin 5 mg Tablet 10 MG PO (14:29)
--- NOTE | 2021-03-05 14:56 | PM.PN ---
Subjective Subjective: Interval history: Patient refused home health services and intermediate placement, will plan to send him home once his INR is therapeutic, will bridge him with full dose Lovenox and start high-dose Coumadin at this point check INR on daily basis otherwise no active complaints other than mild to moderate right-sided hip pain Vitals/I&O/Wt Last Vital Signs Temp 97.8 F 03/05/21 11:23 Pulse 82 03/05/21 11:23 Resp 16 03/05/21 11:23 BP 110/65 03/05/21 11:23 Pulse Ox 93 03/05/21 11:23 03/04/21 03/05/21 03/05/21 22:59 06:59 14:59 Intake Total 410 / 510 60 / 570 112 / 112 Output Total 50 / 150 400 / 550 Balance 360 / 360 -340 / 20 112 / 112 Weight last 48 hrs Weight 83.518 kg Weight 82.1 kg Physical Exam Narrative: EXAM NARRATIVE: Patient sitting comfortably in his bed Saturating well on 2 L nasal cannula No active respiratory distress S1, S2 Variable Clinically looks slightly better in terms of his fluid overload, 1+ pitting edema of lower extremities EOMI, PERRLA Raymundo catheter draining dilute urine Urinary Catheter Management^: Raymundo Latex: Cath Placed During This Visit: yes Reason for Continuing Indwelling Catheter: Acute Urinary Retention or Obstruction Urinary Catheter Date of Insertion: 03/03/21 Urinary Catheter Time of Insertion: 20:50 Data : 03/05/21 05:06 03/05/21 05:06 A&P Assessment and plan (1) Closed hip fracture: Status: Acute Qualifiers: Encounter type: initial encounter Laterality: right Qualified Code(s): S72.001A - Fracture of unspecified part of neck of right femur, initial encounter for closed fracture (2) Physical deconditioning: Status: Acute (3) Hypoxemia requiring supplemental oxygen: Status: Acute (4) AF (paroxysmal atrial fibrillation): Status: Chronic (5) Urinary retention: Status: Acute Additional A&P Information Hip fracture status post intervention Intertrochanteric right hip fracture with subtrochanteric extension Postop day 1 No postoperative complications Drop in hemoglobin noted he is hemodynamically stable No active signs of bleeding Subtherapeutic INR: Start bridging therapy, Lovenox today monitor INR plan to discharge him home Patient refused intermediate and home health services Continue current diet DVT prophylaxis adequately covered Acute hypoxia, postoperative, secondary to atelectasis, hypoventilation, wean off oxygen before discharge BPH: Patient does self-catheterization at home, plan to do voiding trial before discharge Full code Attestations Medical Necessity Statement*: Plan to discharge once INR is therapeutic Time Spent in Patient Care: less than 15 minutes Coding Level of Care 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
[2021-03-05] MEDS: primidone 50 mg Tablet PO (20:33)
[2021-03-06] VITALS (10 sets, daily range): BP systolic 99–119; BP diastolic 41–64; PULSE 70–93; RESP 16–19; TEMP 36.8–37.4; O2SAT 91–96
[2021-03-06 06:22] LABS: INR 1.27 (0.8-1.2)
[2021-03-06 06:37] LABS: Anion Gap 11.6 (5-19); Blood Urea Nitrogen 11 mg/dL (8-23); Calcium 7.5 mg/dL (8.5-10.5); Carbon Dioxide 25 mmol/L (22-29); Chloride 105 mmol/L (98-107); Glucose 84 mg/dL (65-115); Osmolality Calculated 283 mOsm/kg (285-295); Potassium 4.6 mmol/L (3.5-5.1); Sodium 137 mmol/L (136-145)
[2021-03-06 08:18] LABS: Basophils % 0.3 %; Eosinophils # 0.2 10^3/uL (0.0-0.8); Eosinophils % 2.7 %; Hematocrit 28.9 % (42.0-52.0); Hemoglobin 9.6 g/dL (11.7-16.6); Lymphocytes % 13.1 %; Mean Corpuscular HGB Conc 33.2 g/dL (30.0-36.0); Mean Corpuscular Hemoglobin 32.5 pg (28.0-34.0); Monocytes # 1.2 10^3/uL (0.2-0.9); Monocytes % 16.7 %; Neutrophils # 4.95 10^3/uL (1.8-7.7); Neutrophils % 66.8 %; Nucleated Red Blood Cells % 0 %; Platelet Count 148 10^3/cmm (130-400); Red Blood Count 2.95 10^6/uL (4.1-5.3); Red Cell Distribution Width 13.3 % (12.1-15.1); White Blood Count 7.4 10^3/uL (4.0-10.0)
[2021-03-06] MEDS: amiodarone 200 mg Tablet 50 MG PO (08:21)
[2021-03-06] MEDS: acetaminophen 500 mg Tablet 1000 MG PO ×3 (08:21→22:56)
[2021-03-06] MEDS: sennosides-docusate Tablet 2 TAB PO ×2 (08:21→17:27)
[2021-03-06] MEDS: oxyCODONE 5 mg IR Tab/Cap PO (08:22)
[2021-03-06] MEDS: amlodipine 10 mg Tablet PO (08:22)
--- NOTE | 2021-03-06 11:28 | PC.SOCIAL ---
IMM update IMM updated with patient, verbalized an understanding. Copy Pg 2 provided. Initialled, dated, timed, and placed in chart.
--- NOTE | 2021-03-06 11:29 | PM.PN ---
Subjective Subjective: Interval history: Subtherapeutic INR, increase Coumadin dose bridging with Lovenox Overnight events Patient doing fine clinically Doing well on 2 L nasal cannula which is his chronic baseline Vitals/I&O/Wt Last Vital Signs Temp 99.2 F 03/06/21 08:00 Pulse 80 03/06/21 08:00 Resp 16 03/06/21 08:22 BP 112/64 03/06/21 08:00 Pulse Ox 93 03/06/21 08:00 03/05/21 03/06/21 03/06/21 22:59 06:59 14:59 Intake Total 120 / 232 720 / 952 Output Total 1100 / 1100 1050 / 2150 Balance -980 / -868 -330 / -1198 Physical Exam Narrative: EXAM NARRATIVE: Patient laying supine No active distress On 2 L nasal cannula Bilateral breath sounds no active rhonchi or crackles S1, S2 variable Bilateral feet without any significant vascular compromise Edema of legs and feet improved Still has catheter draining dilute urine Nonfocal neuro exam Urinary Catheter Management^: Raymundo Latex: Cath Placed During This Visit: yes Reason for Continuing Indwelling Catheter: Other Urinary Catheter Date of Insertion: 03/03/21 Urinary Catheter Time of Insertion: 20:50 Data : 03/06/21 05:29 03/06/21 05:29 A&P Assessment and plan (1) Intertrochanteric fracture of right femur: Status: Acute Qualifiers: Encounter type: initial encounter Fracture type: closed Fracture alignment: displaced Qualified Code(s): S72.141A - Displaced intertrochanteric fracture of right femur, initial encounter for closed fracture (2) Subtrochanteric fracture of right femur: Status: Acute Qualifiers: Encounter type: initial encounter Fracture type: closed Fracture alignment: displaced Qualified Code(s): S72.21XA - Displaced subtrochanteric fracture of right femur, initial encounter for closed fracture (3) Physical deconditioning: Status: Acute (4) Benign prostatic hyperplasia with lower urinary tract symptoms: Status: Acute (5) AF (paroxysmal atrial fibrillation): Status: Chronic (6) Chronic anticoagulation: Status: Acute Additional A&P Information Hip fracture status post intervention No postoperative complications Hemodynamically stable He is subtherapeutic, currently being bridged with Lovenox, will plan to discharge once INR around 1.8-2 A. 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
[2021-03-06] MEDS: warfarin 5 mg Tablet 10 MG PO (17:28)
--- NOTE | 2021-03-06 17:59 | PC.NURSE ---
Spoke to patient's son- Zen who states that he was only walking with a walker today because he sprained his knees on Friday and that he is slowly improving. Zen states that he will be able to take care of his father at home just like he takes care of his mother. He says he uses a wheel chair to get his mother around and has a van. Zen states that he will be here tomorrow at 11:00 so that can all talk and decide what is best for his dad.
--- NOTE | 2021-03-06 19:05 | PC.NURSE ---
Report to Christal Miguel RN at this time.
[2021-03-06] MEDS: primidone 50 mg Tablet PO (20:25)
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
[2021-03-06] MEDS: enoxaparin 80 mg/0.8 mL Syringe SUBCUT (22:56)
[2021-03-07] VITALS (9 sets, daily range): BP systolic 103–148; BP diastolic 57–78; PULSE 69–90; RESP 16–18; TEMP 36.6–37.2; O2SAT 93–98
[2021-03-07 06:05] LABS: Basophils % 0.5 %; Eosinophils # 0.2 10^3/uL (0.0-0.8); Eosinophils % 3.2 %; Hematocrit 26.4 % (42.0-52.0); Lymphocytes # 1.1 10^3/uL (0.8-4.8); Lymphocytes % 17.7 %; Mean Corpuscular HGB Conc 34.1 g/dL (30.0-36.0); Mean Corpuscular Hemoglobin 35.2 pg (28.0-34.0); Mean Corpuscular Volume 103.1 fl (80-94); Mean Platelet Volume 10.8 fL (7.4-10.4); Monocytes % 16.5 %; Neutrophils # 3.83 10^3/uL (1.8-7.7); Neutrophils % 61.8 %; Nucleated Red Blood Cells % 0 %; Platelet Count 183 10^3/cmm (130-400); Red Blood Count 2.56 10^6/uL (4.1-5.3); Red Cell Distribution Width 14.7 % (12.1-15.1); White Blood Count 6.2 10^3/uL (4.0-10.0)
[2021-03-07 06:19] LABS: INR 1.36 (0.8-1.2)
[2021-03-07 06:39] LABS: Blood Urea Nitrogen 12 mg/dL (8-23); Calcium 7.4 mg/dL (8.5-10.5); Carbon Dioxide 22 mmol/L (22-29); Chloride 104 mmol/L (98-107); Glucose 95 mg/dL (65-115); Osmolality Calculated 282 mOsm/kg (285-295); Sodium 136 mmol/L (136-145)
[2021-03-07] MEDS: acetaminophen 500 mg Tablet 1000 MG PO ×3 (07:04→23:42)
[2021-03-07] MEDS: oxyCODONE 5 mg IR Tab/Cap 10 MG PO (07:04)
[2021-03-07] MEDS: sennosides-docusate Tablet 2 TAB PO (08:10)
[2021-03-07] MEDS: amiodarone 200 mg Tablet 50 MG PO (08:11)
--- NOTE | 2021-03-07 11:25 | PM.PN ---
Subjective Subjective: Interval history: Patient has realized that he will not be able to take care of him at home, agreeable to go to a detention, production planner scheduler notified no overnight events, Raymundo catheter draining dilute urine Vitals/I&O/Wt Last Vital Signs Temp 98.4 F 03/07/21 07:42 Pulse 85 03/07/21 07:42 Resp 17 03/07/21 07:42 BP 131/67 03/07/21 07:42 Pulse Ox 93 03/07/21 07:42 03/06/21 03/07/21 03/07/21 22:59 06:59 14:59 Intake Total 240 / 240 360 / 600 480 / 480 Output Total 1050 / 1050 400 / 1450 Balance -810 / -810 -40 / -850 480 / 480 Physical Exam Narrative: EXAM NARRATIVE: Patient was on room air this morning Was on bedside commode No signs of edema Clinically looks slightly dehydrated S1, S2 variable Abdomen soft No audible stridor or wheezing Appropriate mood and affect Urinary Catheter Management^: Raymundo Latex: Cath Placed During This Visit: yes Reason for Continuing Indwelling Catheter: Acute Urinary Retention or Obstruction Urinary Catheter Date of Insertion: 03/03/21 Urinary Catheter Time of Insertion: 20:50 Data : 03/07/21 05:21 03/07/21 05:21 A&P Assessment and plan (1) Intertrochanteric fracture of right femur: Status: Acute Qualifiers: Encounter type: initial encounter Fracture type: closed Fracture alignment: displaced Qualified Code(s): S72.141A - Displaced intertrochanteric fracture of right femur, initial encounter for closed fracture (2) Subtrochanteric fracture of right femur: Status: Acute Qualifiers: Encounter type: initial encounter Fracture type: closed Fracture alignment: displaced Qualified Code(s): S72.21XA - Displaced subtrochanteric fracture of right femur, initial encounter for closed fracture (3) RBBB: Status: Acute (4) Physical deconditioning: Status: Acute (5) Benign prostatic hyperplasia with lower urinary tract symptoms: Status: Acute (6) AF (paroxysmal atrial fibrillation): Status: Chronic (7) Hypoxemia requiring supplemental oxygen: Status: Acute Additional A&P Information Patient has decided to go to a detention 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 production planner scheduler Patient is doing well on his home O2 requirement Patient is stating that he would like to keep Raymundo catheter because he does not want to do self cath in the hospital We will do voiding trial before his discharge Hemoglobin stable INR 1.36, continue current dose of Coumadin for now Full code Attestations Medical Necessity Statement*: continue med management Time Spent in Patient Care: less than 15 minutes Coding Level of Care Code 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
[2021-03-07] MEDS: enoxaparin 80 mg/0.8 mL Syringe SUBCUT ×2 (13:12→23:41)
[2021-03-07] MEDS: warfarin 5 mg Tablet 10 MG PO (15:13)
[2021-03-07] MEDS: oxyCODONE 5 mg IR Tab/Cap PO ×2 (15:53→21:14)
--- NOTE | 2021-03-07 17:29 | PM.PN ---
Subjective Subjective: Interval history: Patient has realized that he will not be able to take care of him at home, and he is agreeable to go to a residential. Raymundo catheter draining dilute urine Vitals/I&O/Wt Last Vital Signs Temp 98.4 F 03/07/21 15:23 Pulse 87 03/07/21 15:23 Resp 18 03/07/21 15:53 BP 114/68 03/07/21 15:23 Pulse Ox 94 03/07/21 15:23 03/07/21 03/07/21 03/07/21 06:59 14:59 22:59 Intake Total 360 / 600 720 / 720 Output Total 400 / 1450 Balance -40 / -850 720 / 720 Physical Exam Const: COMMON NORMALS: no acute distress, average body habitus, patient oriented x3 and alert GENERAL APPEARANCE: cooperative and comfortable ORIENTATION/CONSCIOUSNESS: Yes awake HENMT: COMMON NORMALS: normocephalic and atraumatic HEAD & SCALP: normocephalic and atraumatic Eye: GENERAL EYE: appearance normal, both eyes and all related structures Chest: COMMONS NORMALS: normal inspection of the chest Resp: COMMON NORMALS: normal respiratory effort EFFORT & INSPECTION: Yes able to speak in complete sentences and Yes symmetric chest movement Extremity: RIGHT LOWER EXTREMITY: Yes hip joint (Dressing is dry and intact.) Right hip: Yes inspection (No significant swelling.), Yes palpation (Tender to palpation about the fracture sites.), Yes ROM (Not evaluated) and Yes neurovascular exam (Intact distally.) Neuro: COMMON NORMALS: patient oriented x3 SENSORIUM/ORIENTATION: Yes alert Psych: COMMON NORMALS: mental status grossly normal APPEARANCE: Yes grossly normal ATTITUDE: Yes calm and Yes engaged ATTENTION/CONCENTRATION: Yes attention grossly intact Skin: COMMON NORMALS: no rashes or lesions noted GENERAL SKIN EXAM: no rashes or lesions noted Urinary Catheter Management^: Raymundo Latex: Cath Placed During This Visit: yes Reason for Continuing Indwelling Catheter: Acute Urinary Retention or Obstruction Urinary Catheter Date of Insertion: 03/03/21 Urinary Catheter Time of Insertion: 20:50 Data : 03/07/21 05:21 03/07/21 05:21 A&P Assessment and plan (1) Intertrochanteric fracture of right femur: Status: Acute Qualifiers: Encounter type: initial encounter Fracture type: closed Fracture alignment: displaced Qualified Code(s): S72.141A - Displaced intertrochanteric fracture of right femur, initial encounter for closed fracture (2) Subtrochanteric fracture of right femur: Patient underwent an open reduction internal fixation of his right intertrochanteric/subtrochanteric fracture. The patient has had difficulty with ambulation. He has had significant pain with this fracture. Initially, he refused penitentiary, but he has now come to realize that this will be required to give him his best chance at independence. He therefore has agreed to penitentiary and plans are being made for his discharge there. Status: Acute Qualifiers: Encounter type: initial encounter Fracture type: closed Fracture alignment: displaced Qualified Code(s): S72.21XA - Displaced subtrochanteric fracture of right femur, initial encounter for closed fracture Attestations Medical Necessity Statement*: Awaiting placement to penitentiary. Not felt safe to return home. 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 Diagnoses Intertrochanteric fracture of right femur S72.141A Encounter type: initial encounter Fracture type: closed Fracture alignment: displaced Subtrochanteric fracture of right femur S72.21XA Encounter type: initial encounter Fracture type: closed Fracture alignment: displaced
--- NOTE | 2021-03-07 18:04 | PC.NURSE ---
Patient's Raymundo Catheter was left in place after surgery because he has to self catheterize at home and to prevent infection it was left in.
--- NOTE | 2021-03-07 18:59 | PC.NURSE ---
[facility]
[2021-03-08] VITALS: BP 117/56; PULSE 77; RESP 17; TEMP 36.8; O2SAT 96
[2021-03-08 04:00] VITALS: BP 98/51; PULSE 77; RESP 16; TEMP 37.2; O2SAT 95
--- NOTE | 2021-03-08 05:47 | PC.NURSE ---
SHIFT SUMMARY Has had a good night. Very pleasant and talkative. Says he has decided that he should go to rehab for awhile. Dressings to right hip incision C&D. Only medicated X1 with po pain med this shift. Taking po fluids well. Raymundo draining. Says he does straight caths at home
[2021-03-08 07:06] VITALS: BP 118/69; PULSE 82; RESP 18; TEMP 37.3; O2SAT 95
[2021-03-08 08:05] VITALS: RESP 18
[2021-03-08] MEDS: amiodarone 200 mg Tablet 50 MG PO (08:05)
[2021-03-08] MEDS: oxyCODONE 5 mg IR Tab/Cap PO ×2 (08:05→13:16)
[2021-03-08] MEDS: acetaminophen 500 mg Tablet 1000 MG PO (08:08)
--- NOTE | 2021-03-08 10:17 | PC.SOCIAL ---
IMM update IMM updated with patient, verbalized an understanding. Copy Pg 2 provided. Initialled, dated, timed, and placed in chart.
--- NOTE | 2021-03-08 10:33 | P.PN_ITS ---
Subjective Subjective: Interval history: Patient is awaiting placement, INR 1.6, will discontinue therapeutic Lovenox now He has been able to get out of bed to chair Raymundo catheter draining urine concentrated color, pain under control Vitals/I&O/Wt Last Vital Signs Temp 99.2 F 03/08/21 07:06 Pulse 82 03/08/21 07:06 Resp 18 03/08/21 08:05 BP 118/69 03/08/21 07:06 Pulse Ox 95 03/08/21 07:06 03/07/21 03/08/21 03/08/21 22:59 06:59 14:59 Intake Total 430 / 1150 240 / 1390 500 / 500 Output Total 400 / 400 350 / 750 Balance 30 / 750 -110 / 640 500 / 500 Physical Exam Narrative: EXAM NARRATIVE: Resting comfortably in his bed Saturating well on 2 L nasal cannula S1, S2 Abdomen soft Raymundo catheter draining concentrated urine EOMI, PERRLA Nonfocal exam Looks euvolemic Urinary Catheter Management^: Raymundo Latex: Cath Placed During This Visit: yes Reason for Continuing Indwelling Catheter: Acute Urinary Retention or Obstruction Urinary Catheter Date of Insertion: 03/03/21 Urinary Catheter Time of Insertion: 20:50 Data : 03/07/21 05:21 03/07/21 05:21 A&P Assessment and plan (1) Intertrochanteric fracture of right femur: Status: Acute Qualifiers: Encounter type: initial encounter Fracture type: closed Fracture alignment: displaced Qualified Code(s): S72.141A - Displaced intertrochanteric fracture of right femur, initial encounter for closed fracture (2) Subtrochanteric fracture of right femur: Status: Acute Qualifiers: Encounter type: initial encounter Fracture type: closed Fracture alignment: displaced Qualified Code(s): S72.21XA - Displaced subtrochanteric fracture of right femur, initial encounter for closed fracture (3) Physical deconditioning: Status: Acute (4) Hypoxemia requiring supplemental oxygen: Status: Acute (5) AF (paroxysmal atrial fibrillation): Status: Chronic (6) Chronic anticoagulation: Status: Acute Additional A&P Information INR 1.7 Discontinue therapeutic dose of Lovenox, continue high dose of Coumadin Most likely Coumadin dose to be scheduled back to his regular dosage on Friday A. fib without RVR Status post hip surgery Awaiting placement Doing well on 2 L nasal cannula Will need home O2 evaluation before discharge Raymundo catheter will be removed before discharge to pen[facility] Full code DVT prophylaxis: Coumadin Attestations Medical Necessity Statement*: Awaiting placement Time Spent in Patient Care: less than 15 minutes Coding Level of Care Code Acute Child Nutrition Director for Chg Fwd Diagnoses Intertrochanteric fracture of right femur S72.141A Encounter type: initial encounter Fracture type: closed Fracture alignment: displaced Subtrochanteric fracture of right femur S72.21XA Encounter type: initial encounter Fracture type: closed Fracture alignment: displaced Physical deconditioning R53.81 Hypoxemia requiring supplemental oxygen R09.02; Z99.81 AF (paroxysmal atrial fibrillation) I48.0 Chronic anticoagulation Z79.01
--- NOTE | 2021-03-08 10:48 | P.DS_ITS ---
Discharge Providers Date of Admission: 03/03/21 18:09 Date of Discharge: March 08, 2021 Attending Provider at Admission: Katheryn Fontanez MD Attending Provider at Discharge: Azael Reynoso MD Primary Care Provider: Tom Pulido MD Diagnoses at Discharge Discharge Diagnosis (1) Intertrochanteric fracture of right femur: Status: Acute Qualifiers: Encounter type: initial encounter Fracture type: closed Fracture alignment: displaced Qualified Code(s): S72.141A - Displaced intertrochanteric fracture of right femur, initial encounter for closed fracture (2) Subtrochanteric fracture of right femur: Status: Acute Qualifiers: Encounter type: initial encounter Fracture type: closed Fracture alignment: displaced Qualified Code(s): S72.21XA - Displaced subtrochanteric fracture of right femur, initial encounter for closed fracture (3) Physical deconditioning: Status: Acute (4) Hypoxemia requiring supplemental oxygen: Status: Acute (5) AF (paroxysmal atrial fibrillation): Status: Chronic (6) Chronic anticoagulation: Status: Acute Reason for Visit Reason for Visit: RIGHT HIP PAIN S/P FALL FROM [facility] Hospital Course Hospital Course History of Present Illness Dr. Estee La is a 75 year old male who carries diagnosis of atrial fibrillation, chronic anticoagulation with Coumadin, previous echo reviewed ejection fraction 58% presented today after sustaining a fall. In the ER he was diagnosed with right hip fracture. Secondary to comorbid conditions hospitalist service was requested to admit the patient. Dr. Ryan consulted. 03/04 surgical intervention of right intertrochanteric/subtrochanteric extension femur fracture, status post open reduction internal fixation utilizing short gamma nail, Coumadin coagulopathy was reversed at the time of admission for surgical intervention. He was started on therapeutic dose of Lovenox after the surgery until his INR max to 1.7. No perioperative or postoperative complications. Initially patient refused to go to detention however when he realized that he is weak and want to be able to take care of him at home he agreed with detention placement. He has been needing assistance of physical therapy to get out of bed to chair. Raymundo catheter was placed as he carries history of BPH, he does self catheterize at home. Physical Exam Narrative: EXAM NARRATIVE: Resting comfortably in his bed Saturating well on 2 L nasal cannula S1, S2 Abdomen soft Raymundo catheter draining concentrated urine EOMI, PERRLA Nonfocal exam Looks euvolemic Urinary Catheter Management^: Raymundo Latex: Cath Placed During This Visit: yes Reason for Continuing Indwelling Catheter: Acute Urinary Retention or Obstruction Urinary Catheter Date of Insertion: 03/03/21 Urinary Catheter Time of Insertion: 20:50 Discharge Data Data Completed and Pending: Completed Studies During Hospitalization Category Date Time Status CXRP [XR chest 1V portable 53315] U rgent Exams 03/03/21 17:17 Completed XR hip RT 2-3V wo /w pel* [id number] Rout ine Exams 03/04/21 14:21 Completed XR hip RT 2-3V wo /w pel* [id number] Stat Exams 03/03/21 16:37 Completed Pending at discharge Category Date Time Status Prothrombin Time INR AM LABS Lab 03/09/21 04:00 Ordered SARS Covid-2 Anti gen Routine Lab 03/08/21 10:35 Uncollected Labs from last 24 hours 03/08/21 05:18 PT 20.40 H INR 1.70 H Vitals: Last Vital Signs Temp 99.2 F 03/08/21 07:06 Pulse 82 03/08/21 07:06 Resp 18 03/08/21 08:05 BP 118/69 03/08/21 07:06 Pulse Ox 95 03/08/21 07:06 Discharge Plan Discharge Patient Disposition: Xfer SNF Condition: Stable Prescriptions: New oxycodone 5 mg tablet 5 mg PO BID PRN (Reason: pain) Qty: 20 RF: 0 Senna Plus 8.6-50 mg capsule 1 tab-cap PO BID Qty: 20 RF: 0 Continued (DME) oxygen 2L at bedtime See Rx Instructions .Route .MEDSUPPLY Qty: 1 RF: 0 lisinopril 40 mg tablet 40 mg PO DAILY Qty: 90 RF: 3 amiodarone 200 mg tablet 50 mg PO DAILY Qty: 30 RF: 5 furosemide [Lasix] 20 mg tablet 20 mg PO DAILY PRN (Reason: edema) Qty: 30 RF: 2 alfuzosin 10 mg tablet extended release 24 hr See Rx Instructions .ROUTE .COMPLEX Qty: 30 RF: 12 Ventolin HFA 90 mcg/actuation HFA aerosol inhaler 2 inh INHALATION Q4H PRN (Reason: shortness of breath or wheezing) Qty: 18 RF: 2 budesonide-formoterol [Symbicort] 160-4.5 mcg/actuation HFA aerosol inhaler 2 puff inhalation BID Qty: 10.2 RF: 3 warfarin 5 mg tablet 5 mg PO DAILY Qty: 90 RF: 3 primidone 50 mg tablet See Rx Instructions .ROUTE .COMPLEX Qty: 60 RF: 3 propranolol 60 mg capsule,extended release 24 hr See Rx Instructions .ROUTE .COMPLEX Qty: 30 RF: 3 warfarin 5 mg tablet 7.5 mg PO DAILY RF: 0 Hold Instructions: Resume on 08/10/20. Other Ambulatory Orders: Physical Therapy Eval and Treat Outpatient (Order) Timeframe: [id number] Facility: [facility] - Location: Physical Therapy Ordered By: Azael Reynoso Referrals: GUERDA SAMPSON [Occupational Therapist] - Tom Pulido MD [Primary Care Provider] - Discharge Diet: Cardiac Discharge Activity: Use walker/crutches as instructed and As per PT/OT instructions Discharge Attestations Time Spent in Discharge Care*: less than 30 min Quality Metrics Clinical Quality Measures During this hospital stay, did patient experience: None Coding Level of Care Code Acute [facility] note Diagnoses Intertrochanteric fracture of right femur S72.141A Encounter type: initial encounter Fracture type: closed Fracture alignment: displaced Subtrochanteric fracture of right femur S72.21XA Encounter type: initial encounter Fracture type: closed Fracture alignment: displaced Physical deconditioning R53.81 Hypoxemia requiring supplemental oxygen R09.02; Z99.81 AF (paroxysmal atrial fibrillation) I48.0 Chronic anticoagulation Z79.01
[2021-03-08 11:18] VITALS: BP 143/75; PULSE 83; RESP 17; TEMP 36.9; O2SAT 95
--- NOTE | 2021-03-08 12:18 | PC.NURSE ---
Report called to Zuri CARUSO at [facility] at this time
[2021-03-08 13:16] VITALS: RESP 16
--- NOTE | 2021-03-08 14:10 | PC.NURSE ---
Patient pushed to ready transport at this time.
[2021-03-08 14:26] LABS: Adenovirus Not Detected (NOT DETECT); Chlamydia Pneumoniae Not Detected (NOT DETECT); Coronavirus 229E,HKU1,NL63,OC4 Not Detected (NOT DETECT); Human Metapneumovirus Not Detected (NOT DETECT); Human Rhinovirus/Enterovirus Not Detected (NOT DETECT); Influenza A Not Detected (NOT DETECT); Influenza A H1 Not Detected (NOT DETECT); Influenza A H1-2009 Not Detected (NOT DETECT); Influenza A H3 Not Detected (NOT DETECT); Influenza B Not Detected (NOT DETECT); Mycoplasma Pneumoniae Not Detected (NOT DETECT); Parainfluenza Virus Type 1 Not Detected (NOT DETECT); Parainfluenza Virus Type 2 Not Detected (NOT DETECT); Parainfluenza Virus Type 3 Not Detected (NOT DETECT); Parainfluenza Virus Type 4 Not Detected (NOT DETECT); Respiratory Syncytial Virus A Not Detected (NOT DETECT); Respiratory Syncytial Virus B Not Detected (NOT DETECT); SARS-COV-2 Not Detected (NOT DETECT)
== END 2021-03-08 14:10 | disposition skilled nursing facility (03) | DRG 481 ==
LOC: ER 18:08 → MEDSURG 18:25
PROVIDERS: Specialist; Admitting Provider Internal Medicine; Emergency Provider Emergency Medicine; PCP Internal Medicine; Visit Provider Internal Medicine
PROC: 0QS606Z Reposition Right Upper Femur with Intramedullary Internal Fixation Device, Open Approach (ICD-10-PCS; CPT 27245; principal; 2021-03-04 10:10)
DX: S72.141A Displaced intertrochanteric fracture of right femur, initial encounter for closed fracture (principal); I48.20 Chronic atrial fibrillation, unspecified; S72.21XA Displaced subtrochanteric fracture of right femur, initial encounter for closed fracture; V00.841A Fall from standing electric scooter, initial encounter; N40.1 Benign prostatic hyperplasia with lower urinary tract symptoms; R33.8 Other retention of urine; Z87.442 Personal history of urinary calculi; I10 Essential (primary) hypertension; M17.0 Bilateral primary osteoarthritis of knee; Z87.891 Personal history of nicotine dependence; G25.0 Essential tremor; E87.5 Hyperkalemia; Z79.01 Long term (current) use of anticoagulants
CPT/HCPCS: 36415; 36416; 51702; 71045; 73502; 76000; 80048; 80053; 82962; 83735; 85025; 85610; 87635; 93005; 94640; 96372; 96374; 97110; 97162; 97165; 97530; 97535; 99285; 99291; 99292; C1713; C1776; J0690; J0696; J1170; J1650; J2405; J2704; J2710; J3010; J3370; J3430; J3475; J3490; J7050; J7626

== ENCOUNTER → 2021-03-26 15:34 | Outpatient (BNVA) | payer MEDICARE, SELFPAY | PROVIDERS: PCP Internal Medicine; Visit Provider Specialist | DX: S72.21XD Displaced subtrochanteric fracture of right femur, subsequent encounter for closed fracture with routine healing (principal); S72.141D Displaced intertrochanteric fracture of right femur, subsequent encounter for closed fracture with routine healing; X58.XXXD Exposure to other specified factors, subsequent encounter | CPT/HCPCS: 73502 ==

== ENCOUNTER 2021-04-10 06:00 | Outpatient (RCR) | payer MEDICARE, SELFPAY | END 2021-05-07 23:59 | disposition home or self-care (01) | LOC: TPT 06:00 | PROVIDERS: PCP Internal Medicine; Referring Provider Internal Medicine; Visit Provider Internal Medicine | DX: S72.141D Displaced intertrochanteric fracture of right femur, subsequent encounter for closed fracture with routine healing (principal); S72.21XD Displaced subtrochanteric fracture of right femur, subsequent encounter for closed fracture with routine healing; S72.009D Fracture of unspecified part of neck of unspecified femur, subsequent encounter for closed fracture with routine healing; X58.XXXD Exposure to other specified factors, subsequent encounter; R53.81 Other malaise | CPT/HCPCS: 97110; 97116; 97163 ==

== ENCOUNTER → 2021-04-23 13:48 | Outpatient (BNVA) | payer MEDICARE, SELFPAY | PROVIDERS: PCP Internal Medicine; Visit Provider Specialist | DX: S72.141D Displaced intertrochanteric fracture of right femur, subsequent encounter for closed fracture with routine healing (principal); Z98.890 Other specified postprocedural states; S72.21XD Displaced subtrochanteric fracture of right femur, subsequent encounter for closed fracture with routine healing; X58.XXXD Exposure to other specified factors, subsequent encounter | CPT/HCPCS: 73502 ==

== ENCOUNTER → 2021-04-30 08:55 | Outpatient (BNVA) | payer MEDICARE, SELFPAY | PROVIDERS: PCP Internal Medicine; Visit Provider Specialist | DX: M17.0 Bilateral primary osteoarthritis of knee (principal) | CPT/HCPCS: 73560; 73565 ==

== ENCOUNTER 2021-05-08 06:00 | Outpatient (RCR) | payer MEDICARE, SELFPAY | END 2021-05-29 13:09 | disposition home or self-care (01) | LOC: TPT 06:00 | PROVIDERS: PCP Internal Medicine; Referring Provider Internal Medicine; Visit Provider Internal Medicine | DX: Z47.89 Encounter for other orthopedic aftercare (principal); S72.141D Displaced intertrochanteric fracture of right femur, subsequent encounter for closed fracture with routine healing; S72.21XD Displaced subtrochanteric fracture of right femur, subsequent encounter for closed fracture with routine healing; X58.XXXD Exposure to other specified factors, subsequent encounter | CPT/HCPCS: 97110; 97116 ==

== ENCOUNTER → 2021-05-18 08:19 | Outpatient (BNVA) | payer MEDICARE, SELFPAY | PROVIDERS: PCP Internal Medicine; Visit Provider Internal Medicine Cardiovascular Disease | DX: Z79.01 Long term (current) use of anticoagulants (principal) ==

== ENCOUNTER → 2021-05-23 10:19 | Outpatient (BNVA) | payer MEDICARE, SELFPAY | PROVIDERS: PCP Internal Medicine; Visit Provider Internal Medicine Cardiovascular Disease | DX: Z79.01 Long term (current) use of anticoagulants (principal) ==

== ENCOUNTER → 2021-06-01 08:10 | Outpatient (BNVA) | payer MEDICARE, SELFPAY | PROVIDERS: PCP Internal Medicine; Visit Provider Internal Medicine Cardiovascular Disease | DX: Z79.01 Long term (current) use of anticoagulants (principal) ==

== ENCOUNTER → 2021-06-04 14:26 | Outpatient (BNVA) | payer MEDICARE, SELFPAY | PROVIDERS: PCP Internal Medicine; Visit Provider Specialist | DX: S72.141A Displaced intertrochanteric fracture of right femur, initial encounter for closed fracture (principal); X58.XXXA Exposure to other specified factors, initial encounter | CPT/HCPCS: 73502 ==

== ENCOUNTER → 2021-06-07 08:28 | Outpatient (BNVA) | payer MEDICARE, SELFPAY | PROVIDERS: PCP Internal Medicine; Visit Provider Internal Medicine Cardiovascular Disease | DX: I48.91 Unspecified atrial fibrillation (principal); Z79.01 Long term (current) use of anticoagulants ==

== ENCOUNTER → 2021-06-15 12:36 | Outpatient (BNVA) | payer MEDICARE, SELFPAY | PROVIDERS: PCP Internal Medicine; Visit Provider Internal Medicine Cardiovascular Disease | DX: Z79.01 Long term (current) use of anticoagulants (principal) ==

== ENCOUNTER → 2021-06-22 13:31 | Outpatient (BNVA) | payer MEDICARE, SELFPAY | PROVIDERS: PCP Internal Medicine; Visit Provider Internal Medicine Cardiovascular Disease | DX: Z79.01 Long term (current) use of anticoagulants (principal) ==

== ENCOUNTER → 2021-06-26 16:44 | Outpatient (BNVA) | payer MEDICARE, SELFPAY | PROVIDERS: PCP Internal Medicine; Visit Provider Internal Medicine Cardiovascular Disease | DX: Z79.01 Long term (current) use of anticoagulants (principal) ==

== ENCOUNTER → 2021-07-04 09:56 | Outpatient (BNVA) | payer MEDICARE, SELFPAY | PROVIDERS: PCP Internal Medicine; Visit Provider Internal Medicine Cardiovascular Disease | DX: Z79.01 Long term (current) use of anticoagulants (principal) ==

== ENCOUNTER → 2021-07-05 09:01 | Outpatient (BNVA) | payer MEDICARE, SELFPAY | PROVIDERS: PCP Internal Medicine; Visit Provider Specialist | DX: M17.4 Other bilateral secondary osteoarthritis of knee (principal); Z87.891 Personal history of nicotine dependence | CPT/HCPCS: 20610; J7325 ==

== ENCOUNTER → 2021-07-13 10:53 | Outpatient (BNVA) | payer MEDICARE, SELFPAY | PROVIDERS: PCP Internal Medicine; Visit Provider Internal Medicine Cardiovascular Disease | DX: Z79.01 Long term (current) use of anticoagulants (principal) ==

== ENCOUNTER → 2021-07-20 09:49 | Outpatient (BNVA) | payer MEDICARE, SELFPAY | PROVIDERS: PCP Internal Medicine; Visit Provider Internal Medicine Cardiovascular Disease | DX: Z79.01 Long term (current) use of anticoagulants (principal) ==

== ENCOUNTER → 2021-07-27 08:31 | Outpatient (BNVA) | payer MEDICARE, SELFPAY | PROVIDERS: PCP Internal Medicine; Visit Provider Internal Medicine Cardiovascular Disease | DX: Z79.01 Long term (current) use of anticoagulants (principal) ==

== ENCOUNTER → 2021-08-02 10:33 | Outpatient (BNVA) | payer MEDICARE, SELFPAY | PROVIDERS: PCP Internal Medicine; Visit Provider Internal Medicine Cardiovascular Disease | DX: Z79.01 Long term (current) use of anticoagulants (principal) ==

== ENCOUNTER → 2021-08-10 09:41 | Outpatient (BNVA) | payer MEDICARE, SELFPAY | PROVIDERS: PCP Internal Medicine; Visit Provider Internal Medicine Cardiovascular Disease | DX: Z79.01 Long term (current) use of anticoagulants (principal) ==

== ENCOUNTER → 2021-08-15 10:10 | Outpatient (BNVA) | payer MEDICARE, SELFPAY | PROVIDERS: PCP Internal Medicine; Visit Provider Internal Medicine Cardiovascular Disease | DX: Z79.01 Long term (current) use of anticoagulants (principal) ==

== ENCOUNTER → 2021-08-23 09:10 | Outpatient (BNVA) | payer MEDICARE, SELFPAY | PROVIDERS: PCP Internal Medicine; Visit Provider Internal Medicine Cardiovascular Disease | DX: Z79.01 Long term (current) use of anticoagulants (principal) ==

== ENCOUNTER → 2021-08-30 17:21 | Outpatient (BNVA) | payer MEDICARE, SELFPAY | PROVIDERS: PCP Internal Medicine; Visit Provider Internal Medicine Cardiovascular Disease | DX: Z79.01 Long term (current) use of anticoagulants (principal) ==

== ENCOUNTER → 2021-09-06 12:41 | Outpatient (BNVA) | payer MEDICARE, SELFPAY | PROVIDERS: PCP Internal Medicine; Visit Provider Internal Medicine Cardiovascular Disease | DX: Z79.01 Long term (current) use of anticoagulants (principal) ==

== ENCOUNTER → 2021-09-14 08:28 | Outpatient (BNVA) | payer MEDICARE, SELFPAY | PROVIDERS: PCP Internal Medicine; Visit Provider Internal Medicine Cardiovascular Disease | DX: Z79.01 Long term (current) use of anticoagulants (principal) ==

== ENCOUNTER → 2021-09-17 09:19 | Outpatient (BNVA) | payer MEDICARE, SELFPAY | PROVIDERS: PCP Internal Medicine; Visit Provider Specialist | DX: Z79.01 Long term (current) use of anticoagulants (principal); M17.11 Unilateral primary osteoarthritis, right knee | CPT/HCPCS: 99214 ==

== ENCOUNTER → 2021-09-21 12:59 | Outpatient (BNVA) | payer MEDICARE, SELFPAY | PROVIDERS: PCP Internal Medicine; Visit Provider Internal Medicine Cardiovascular Disease | DX: Z79.01 Long term (current) use of anticoagulants (principal) ==

== ENCOUNTER → 2021-09-27 10:07 | Outpatient (BNVA) | payer MEDICARE, SELFPAY | PROVIDERS: PCP Internal Medicine; Visit Provider Internal Medicine Cardiovascular Disease | DX: Z79.01 Long term (current) use of anticoagulants (principal) ==

== ENCOUNTER 2021-10-02 10:55 | Inpatient (IN) | payer MEDICARE, SELFPAY ==
[2021-09-24 10:26] VITALS: BMI 22.5
--- NOTE | 2021-09-24 10:52 | ANES.PREANE2 ---
Pre-Anesthetic Assessment Height/Weight: Height 1.85 m Weight 77.564 kg Preop Diagnosis: Primary osteoarthritis right knee Operation Date: 10/02/21 07:00 Proposed Procedures p Right Total Knee Arthroplasty 65387,M17.10(Right) - Halle Ryan MD Familial anesthetic complications: None Social No alcohol and No tobacco Exam alert, oriented x 3, clear to auscultation bilaterally and regular rate & rhythm Airway Mallampati: Class II Dentition: false Pulmonary Chronic Obstructive Pulmonary Disease (2 L NC at night) CV/HEM Atrial Fibrillation and Hypertension Echo 2019 CONCLUSIONS ?1. This is a limited 2D echo only. ?2. Normal left ventricular size and systolic function.? Left ?ventricle ejection fraction estimated at 58%.? No regional wall ?motion abnormality. ?3.? No pericardial effusion. ?4.? When compared to previous echocardiogram dated 07/17/2019, ?there is no pericardial effusion now. None reported self caths Hepatic None reported GI None reported Metabolic None reported Neuropsych tremor Anesthetic Plan ASA status: 4 Anesthesia: MAC and Regional (specify below) Risk of > 500 ml blood loss (7ml/kg in children): No Medications/Allergies Home Medications Medication Instructions Recorded Confirmed Last Taken Type oxygen 2L at bedtime #1 ea 10/25/19 09/17/21 Unknown Rx furosemide 20 mg tablet (Lasix) 20 mg PO DAILY PRN #30 tab 11/18/19 09/24/21 04/26/20 Rx warfarin 5 mg tablet 7.5 mg PO DAILY 07/25/20 09/24/21 03/02/21 06:00 History budesonide-formoterol HFA 160 2 puff INHALATION BID #10.2 g 01/05/21 09/24/21 Unknown Rx mcg-4.5 mcg/actuation aerosol inhaler (Symbicort) warfarin 5 mg tablet 5 mg PO DAILY #90 tab 01/11/21 09/24/21 03/01/21 06:00 Rx amiodarone 200 mg tablet 50 mg PO DAILY #30 tab 02/20/21 09/24/21 03/03/21 06:00 Rx lisinopril 40 mg tablet 40 mg PO DAILY #90 tab 02/20/21 09/24/21 03/02/21 06:00 Rx propranolol 60 mg capsule,24 See Rx Instructions .ROUTE 05/24/21 09/24/21 Unknown Rx hr,extended release .COMPLEX #30 cap primidone 50 mg tablet 50 mg PO BID #180 tab 06/19/21 09/24/21 Unknown Rx albuterol sulfate 90 mcg/actuation 2 inh INHALATION Q4H PRN #18 gm 08/07/21 09/24/21 Unknown Rx aerosol inhaler (Ventolin HFA) catheter, straight #4 ea 09/17/21 Unknown Rx Allergies Allergy/AdvReac Type Severity Reaction Status Date / Time ibuprofen [From Advil] Allergy Unknown Verified 09/24/21 10:20 naproxen Allergy NA Verified 09/24/21 10:20 [facility] Anesthesia Medical History 1st degree AV block AF (paroxysmal atrial fibrillation) Atrial fibrillation Benign prostatic hyperplasia with lower urinary tract symptoms Bladder stone Chronic anticoagulation Essential (primary) hypertension Essential tremor Headache Hypotension, unspecified Hypoxemia requiring supplemental oxygen Osteoarthritis of both knees Physical deconditioning RBBB SVT (supraventricular tachycardia) Urinary retention Surgical History History of tonsillectomy and adenoidectomy Family History Father Cancer Mother , at age 56 Heart attack Social History Smoking and tobacco status: current some day smoker Alcohol intake: current Alcohol intake frequency: holidays/special occasions only Marital status: Current occupational status: retired History of recent travel: No Data Anesthesia Cardiac Studies: Echocardiogram Limited Views 11/01/19
[2021-09-24 11:32] LABS: Alanine Aminotransferase 12 U/L (0-41); Albumin Level 3.8 g/dL (3.5-5.2); Alkaline Phosphatase 120 IU/L (40-130); Anion Gap 12.7 (5-19); Aspartate Amino Transferase 14 U/L (0-40); Blood Urea Nitrogen 13 mg/dL (8-23); Calcium 8.6 mg/dL (8.5-10.5); Carbon Dioxide 23 mmol/L (22-29); Chloride 106 mmol/L (98-107); Globulin 2.9 g/dL (1.3-4.6); Glucose 83 mg/dL (65-115); Osmolality Calculated 283 mOsm/kg (285-295); Potassium 4.7 mmol/L (3.5-5.1); Sodium 137 mmol/L (136-145); Total Bilirubin 0.3 mg/dL (0.15-1.2); Total Protein 6.7 g/dL (6.6-8.7)
[2021-09-24 11:38] LABS: Basophils % 0.8 %; Eosinophils # 0.4 10^3/uL (0.0-0.8); Eosinophils % 7.9 %; Hematocrit 42.1 % (42.0-52.0); Hemoglobin 13.6 g/dL (11.7-16.6); Lymphocytes # 1.3 10^3/uL (0.8-4.8); Lymphocytes % 24.6 %; Mean Corpuscular HGB Conc 32.3 g/dL (30.0-36.0); Mean Corpuscular Hemoglobin 32.5 pg (28.0-34.0); Mean Corpuscular Volume 100.5 fl (80-94); Monocytes # 0.9 10^3/uL (0.2-0.9); Monocytes % 17.4 %; Neutrophils # 2.61 10^3/uL (1.8-7.7); Neutrophils % 48.9 %; Nucleated Red Blood Cells % 0 %; Platelet Count 320 10^3/cmm (130-400); Red Blood Count 4.19 10^6/uL (4.1-5.3); Red Cell Distribution Width 13.5 % (12.1-15.1); White Blood Count 5.3 10^3/uL (4.0-10.0)
[2021-10-02] VITALS (22 sets, daily range): BP systolic 111–177; BP diastolic 66–101; PULSE 52–74; RESP 13–20; TEMP 36.1–36.8; O2SAT 93–98
[2021-10-02] MEDS: acetaminophen 1,000 MG/100 ML PIGGYBACK 400 MG IV ×3 (06:16→18:11)
[2021-10-02] MEDS: sodium chloride 0.9% 1,000 ML 30 ML IV (06:16)
[2021-10-02 06:27] LABS: INR 1.03 (0.8-1.2)
--- NOTE | 2021-10-02 06:54 | P.HPUD_ITS ---
Surgery/Procedure H&P Update DATE OF PROCEDURE: October 02, 2021 DATE H&P PERFORMED: 09/17/21 H&P UPDATE INFORMATION: I have reviewed H&P completed within last 30 days, I have examined patient prior to procedure, No changes to prior documentation and H&P is in [facility] EMR on date indicated PREOP DIAGNOSIS: Primary osteoarthritis right knee PLANNED PROCEDURE: Operation Date: 10/02/21 07:00 Proposed Procedures p Right Total Knee Arthroplasty 58576,M17.10(Right) - Halle Ryan MD Related Problem List Diagnoses (1) Primary osteoarthritis of right knee:
[2021-10-02] MEDS: ceFAZolin 2,000 MG in sodium chloride 0.9% (plus) 50 ML 100 MG IV ×3 (07:00→22:30)
--- NOTE | 2021-10-02 07:06 | ANES.PROC ---
Anesthesia Procedures Procedure/Date: 10/02/21 Nerve Block ^: Nerve Block 1: Main Anesthesia: spinal anesthesia block Time Out Performed: Yes Consent: requested by attending/covering physician, from patient, risks and benefits reviewed and patient agrees to proceed Anesthesia monitors applied: pulse oximetry, EKG, BP cuff and oxygen Nerve block position: supine Anesthetic Used: ropivicaine 0.5% (30) and with decadron (4 mg) Ultrasound used to: recognize landmarks and visualize and ID brachial plexus Nerve Stimulator Used?: No Interscalene/Femoral BLK: 4 stimuplex 21 g needle used for position and inplane approach, visualize local anesthetic spread and no vascular puncture identified Injection: neg aspiration of heme Patient Tolerated Procedure: well and no complications Complications: none
[2021-10-02] MEDS: ceFAZolin 1,000 mg SDV 2000 MG IRRIGATION (08:08)
[2021-10-02] MEDS: vancomycin 1,000 MG SDV 1000 MG XX (08:08)
[2021-10-02] MEDS: tranexamic acid 1,000 mg/10mL SDV 1000 MG IRRIGATION (09:33)
--- NOTE | 2021-10-02 10:03 | XR_ITS ---
WS: [id number] Exam: XR knee RT 3V* [id number] Date/Time of Exam: 10/02/2021 10:09 AM Reason For Exam: Status post right total knee arthroplasty Comparison 04/30/2021. A total knee prosthesis has been placed and is in excellent position. Postoperative changes in the ad jacent soft tissues. Anterior surgical skin clips. XR/XR knee RT 3V* [id number] IMPRESSION: 1. Total knee replacement in excellent position.
--- NOTE | 2021-10-02 10:12 | P.OP_ITS ---
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 Post-op findings: Severe degenerative osteoarthritis with flexion contracture of the knee and hip Procedure done: Right total knee arthroplasty Implants: The Rubens total knee system with a size 7 triathlon beaded posterior stabilized femur right, a triathlon titanium tibial component size 6 beaded, a triathlon X3 posterior stabilized tibial bearing insert size 6 X 13 mm and a beaded triathlon titanium asymmetric patella size 40 x 11 mm Specimens removed/disposition: None Pathology: none sent Surgeon: Halle Ryan Adult Ministries Director: [facility] operating room technicians Anesthesia: MAC (With spinal and supplemental adductor block, ASA 3) Estimated blood loss (mL): 25 Tourniquet time (min): 99 (at 250 mmHg) IV fluids (mL): 1,100 Urine output (mL): 600 Complications: None Findings: Severe osteoarthritis right knee with flexion contracture at the hip and knee Condition: stable Disposition: PACU (Then to floor for postoperative rehabilitation and pain management) Brief History: Krishna La is a 76-year-old gentleman who presented to me with severe osteoarthritis bilateral knees. Additionally, the patient had a comminuted intertrochanteric/subtrochanteric right femur fracture in February. He has recovered from this and presented with both knees limiting his daily activities. He had a flexion contracture of the knee diagnosed in the office which was quite severe. Additionally, today, he is noted to have a significant hip flexion contracture as well. Plans were to address the right knee first and subsequently proceed with a left knee should the patient choose this. Risks and complications were discussed with him. Consents were signed preoperatively. Questions were answered. Procedure: The patient was brought to the operating theater, and after undergoing adequate spinal anesthesia with MAC and supplemented with adductor canal block, ASA 4, the right lower extremity was prepped with Dura-Prep and draped in usual fashion following placement of a tourniquet high on the leg. The leg was then draped free. Following prepping and draping, the leg was exsanguinated, and the tourniquet was elevated to 250 mmHg for a total tourniquet time of 99 minutes.? Prior to elevation of the tourniquet, but following exposure of the site of surgery, a surgical pause was performed. At the time of the surgical pause, we confirmed the site and side of surgery. Additionally, we confirmed the appropriate and timely administration of preoperative antibiotics, Ancef 2 g, vancomycin 1 g, and Transexemic acid 1 g.? The availability of equipment was confirmed, and the patient's identity was verbalized as well.? An additional 1 g of transexemic acid was administered at the end of the case. Following the surgical pause, an incision was made centering over the patella continuing proximally and distally as necessary to allow access to the knee joint. Dissection continued through skin and soft tissues using a scalpel. Hemostasis was obtained using electrocautery. The skin incision was followed by a median parapatellar arthrotomy. The leg was extended and the patella was everted. Following this, the leg was returned to flexed position.? The distal femur was exposed, and a drill hole was made in this for placement of the distal femoral jig. The distal femoral jig was set at 5? of valgus. The distal femoral cutting block was then placed in appropriate position, and an kd wing was used to confirm an appropriate amount of distal femur would be resected.? The distal femur was noted to be denuded of cartilage. There was also significant convexity to the medial femoral condyle with reddish discoloration due to the severe degenerative osteoarthritis. The distal femoral resection was accomplished with 10 mm of bone being resected distally secondary to the patient's significant flexion contracture.? After the distal femoral resection was accomplished, the femur was measured, and it measured a size 7.? Medial lateral dimension also measured a size 7.? A size 7 femoral cutting block was placed in position, and we were then able to accomplish the anterior, posterior and chamfer cuts. This jig was then removed, and the notch guide was placed in position. With the notch guide in appropriate position, the notch was excised including resection of the anterior and posterior cruciate ligaments. This notch was to allow for the posterior stabilized femoral component. At this point, the femur was prepared and attention was directed to the proximal tibia.? The posterior knee retractor was placed along with medial and lateral retractors. Further resection of the menisci was accomplished as we had better visualization. A complete meniscectomy was performed both medially and laterally with care being taken to protect the popliteus. Retractors were then placed so that the proximal tibia was well visualized. A drill hole was then made in the tibia for placement of the intramedullary guide. This guide was placed so that approximately 2 mm of bone would be resected from the deficient medial tibial plateau. The intramedullary guide was utilized supplemented with an extramedullary guide to assure appropriate alignment for the proximal tibial resection. The proximal tibial jig was then evaluated, pinned in position, and the proximal tibial resection was accomplished without difficulty. The jig was removed, and the proximal tibia was measured. It measured a size 6. We then attempted a trial reduction with a size 6 by 11 mm.? Subsequently, we increased to a size 6 x 13. Posterior and medial releases were required. Additionally, the hip flexion contracture interfered with the extension of the knee. The femoral component was placed in position for the trial reduction, and the knee was placed through range of motion.? With this construct, there was appropriate patellar tracking.? With this we had excellent varus valgus alignment.? The knee was stable to varus valgus stress.? Therefore, these were the chosen components.? There was full extension and flexion without lift off and the rotation of the tibia was marked.? Alignment was checked from the hip to the ankle, and this was noted to be appropriate as well. Attention was then directed to the patella. The patella was measured with a caliper.? Measurements of the patella then indicated that a size asymmetric 40 mm x 11 mm was the appropriate patellar size. We then placed the jig to drill for the 3 pegs of the press-fit patella, and these drill holes were made without incident. A trial patella was then placed, and the knee was placed through range of motion. The patella was noted to track nicely without evidence of subluxation.? The femur was prepared for a press-fit femur by drilling 2 holes for the femoral pegs.? All trial components were subsequently removed. The tibial tray was then pinned into position, and we broached the tibia for the stem of the tibial component.? Subsequently, 4 drill holes were made for placement of the press-fit tibia.? This was accomplished without difficulty. Care was taken to assure appropriate rotation of the tibia as well as appropriate position on the proximal tibia. The tibial tray was completely seated on the proximal tibia. Following broaching, the tibial guide was removed, and all surfaces were copiously irrigated. The surfaces were then dried and a bone plug was placed into the distal femur.? Exparel was also subsequently injected. The Tritanium tibia was impacted into position.? The beaded femur was then impacted into position in a cementless fashion. The tibial insert was placed. The patella was pressed into position with a patellar clamp.? The knee was then copiously irrigated with betadine and saline and suctioned dry. Attention was then directed to closure. Closure was accomplished with 0 Vicryl in the fascial tissues.? Following this, a 2-0 Monocryl was used in the subcutaneous tissues, and the skin was closed with skin everton.? Care was taken to assure an excellent subcutaneous as well as skin closure.? A sterile dressing was then placed consisting of Dermabond Prineo, Telfa, OpSite, sterile soft roll including over the foot, and an Román wrap. The patient was returned the Recovery Room in a satisfactory condition. X-rays were obtained and reviewed there.? The patient will be discharged to the floor for postoperative rehabilitation and pain management. Related Problem List Diagnoses (1) Primary osteoarthritis of right knee:
[2021-10-02] MEDS: lisinopril 20 mg Tablet 40 MG PO (12:13)
[2021-10-02] MEDS: primidone 50 mg Tablet PO ×2 (12:13→20:13)
[2021-10-02] MEDS: chlorhexidine gluconate 0.12% Btl 473 mL 30 ML MUCOUS MEM ×2 (12:14→20:12)
--- NOTE | 2021-10-02 13:56 | ANE.PACU2 ---
Inpatient post-anesthesia follow up: Airway intact: Yes Vital signs: Temperature 97.4 F Pulse Rate 61 Respiratory Rate 16 Blood Pressure 171/83 Pulse Oximetry 96 Oxygen Delivery Me thod Room Air Oxygen Flow Rate Fraction of Inspir ed Oxygen Hydration adequate: Yes Nausea and vomiting: No Pain level: 2 Mental status: Baseline
[2021-10-02] MEDS: levalbuterol 0.63 mg/3 mL Neb INHALATION ×2 (15:31→21:30)
[2021-10-02] MEDS: oxyCODONE 5 mg IR Tab/Cap PO ×2 (17:00→23:14)
[2021-10-02] MEDS: sennosides-docusate Tablet 2 TAB PO (17:00)
[2021-10-02] MEDS: calcium carbonate 500 mg Chew Tablet 1000 MG PO (17:01)
[2021-10-02] MEDS: iron polysaccharide complex 150 mg Capsule PO (17:01)
[2021-10-02] MEDS: budesonide 0.5 mg/2 mL Neb INHALATION (21:30)
--- NOTE | 2021-10-02 21:55 | PM.CONSULT ---
Providers/Reason For Consult Consulting Physician/Specialty*: Nataly Palma MD/ Hospitalist Reason for Consult*: Hypertension Requesting Physician: Dr. Halle Ryan Attending Physician: Halle Ryan MD Primary Care Provider: Tom Pulido MD History of Present Illness History of Present Illness Krishna La is a 76 year old male with PMH atrial fibrillation, chronic anticoagulation with Coumadin, HTN admitted today for elective Right total knee arthroplasty for Primary osteoarthritis. He tolerated the procedure well, overall uneventful. Post op his bP was noted to be ranging 155-170mmHG for which hospitalist team has been consulted to assist with management. Review of medication shows patient is on lisinopril and propanolol as outpatient. He received lisinopril today at 12 PM. At the time of my assessment blood pressure is improved to 137/72 mmHg, pulse rate of 70, temperature 97.6, saturating 96% on room air. Review of Systems General: Reports: 10 or more systems reviewed and unremarkable except in HPI and below Const: Denies: fever(s), chills or body aches Eyes: Denies: change in vision, blurry vision or photophobia ENMT: Reports: hoarseness; Denies: throat pain, enlarged tonsils, odynophagia or nasal congestion Card: Denies: chest pain, palpitations, irregular heart rhythm, edema, swelling of feet/ankles, lightheadedness, pre-syncope, dyspnea on exertion or orthopnea Resp: Denies: dyspnea, productive cough, non-productive cough, wheezing, stridor, pain on inspiration, change in phlegm color, hemoptysis or chest congestion GI: Denies: abdominal pain, nausea, vomiting, hematemesis, coffee ground emesis, dysphagia, heartburn, diarrhea, constipation, GI cramping, change in stool character, hematochezia or melena : Denies: flank pain, dysuria, urinary frequency, urinary urgency, urinary hesitancy or hematuria Musc: Denies: neck pain, back pain, extremity pain, joint swelling, joint warmth or deformity Neuro: Denies: headache(s), numbness in extremities, weakness in extremities, sensory changes, difficulty walking, frequent falls, dizziness, vertigo, behavioral changes, Slurred speech present or seizure-like activity Psych: Denies: anxiety, depression, suicidal ideation or homicidal ideation Endo: Denies: polyuria, polydipsia, tired all the time, cold intolerance or hot flashes Asif/Lymph: Denies: easy bruising or easy bleeding Medications/Allergies Home Medications Medication Instructions Recorded Confirmed Last Taken Type furosemide 20 mg tablet (Lasix) 20 mg PO DAILY PRN #30 tab 11/18/19 10/02/21 04/26/20 Rx warfarin 5 mg tablet 7.5 mg PO DAILY 07/25/20 10/02/21 09/27/21 History budesonide-formoterol HFA 160 2 puff INHALATION BID #10.2 g 01/05/21 10/02/21 Unknown Rx mcg-4.5 mcg/actuation aerosol inhaler (Symbicort) warfarin 5 mg tablet 5 mg PO DAILY #90 tab 01/11/21 10/02/21 09/27/21 Rx amiodarone 200 mg tablet 50 mg PO DAILY #30 tab 02/20/21 10/02/21 10/02/21 Rx lisinopril 40 mg tablet 40 mg PO DAILY #90 tab 02/20/21 10/02/21 10/01/21 Rx propranolol 60 mg capsule,24 See Rx Instructions .ROUTE 05/24/21 10/02/21 10/01/21 22:30 Rx hr,extended release .COMPLEX #30 cap primidone 50 mg tablet 50 mg PO BID #180 tab 06/19/21 10/02/21 10/01/21 Rx albuterol sulfate 90 mcg/actuation 2 inh INHALATION Q4H PRN #18 gm 08/07/21 10/02/21 10/01/21 Rx aerosol inhaler (Ventolin HFA) Allergies Allergy/AdvReac Type Severity Reaction Status Date / Time ibuprofen [From Advil] Allergy Unknown Verified 09/24/21 10:20 naproxen Allergy NA Verified 09/24/21 10:20 Current Medications Generic Name Dose Route Start Last Admin Trade Name Freq PRN Reason Stop Dose Admin Budesonide 0.5 mg 10/02/21 18:10/02/21 21:30 Budesonide 0.5 Mg/2 Ml Neb INHALATION 0.5 mg BID.RESPIRATORY ALEXANDRA Administration Calcium Carbonate 1,000 mg 10/02/21 18:00 10/02/21 17:01 Calcium Carbonate 500 Mg Chew Tablet PO 1,000 mg BID ALEXANDRA Administration Chlorhexidine Gluconate 30 ml 10/02/21 13:00 10/02/21 20:12 Chlorhexidine Gluconate 0.12% Btl 473 Ml MUCOUS MEM 30 ml QID ALEXANDRA Administration Acetaminophen 1,000 mg in 100 mls @ 400 mls/hr 10/02/21 10:55 10/02/21 19:15 Acetaminophen IV 10/03/21 03:09 Infused Q8H ALEXANDRA Infusion Cefazolin Sodium 2,000 mg/ 50 mls @ 100 mls/hr 10/02/21 15:00 10/02/21 19:15 Sodium Chloride IV 10/03/21 07:29 Infused Q8H ALEXANDRA Infusion Levalbuterol HCl 0.63 mg 10/02/21 12:00 10/02/21 21:30 Levalbuterol 0.63 Mg/3 Ml Neb INHALATION 0.63 mg QID.RESPIRATORY ALEXANDRA Administration Mupirocin 1 applic 10/02/21 18:00 10/02/21 17:03 Mupirocin Oint 22 Gm NASAL 10/07/21 17:59 Not Given BID [facility] Protocol Non-Formulary Medication 60 mg 10/02/21 21:00 10/02/21 18:50 Propranolol PO 60 mg BEDTIME ALEXANDRA Administration Oxycodone HCl 5 mg 10/02/21 10:55 10/02/21 17:00 Oxycodone 5 Mg Ir Tab/Cap PO 5 mg Q4H PRN Administration MODERATE PAIN Polysaccharide Iron Complex 150 mg 10/02/21 18:00 10/02/21 17:01 Iron Polysaccharide Complex 150 Mg Capsule PO 150 mg BIDWM ALEXANDRA Administration Primidone 50 mg 10/02/21 18:00 10/02/21 20:13 Primidone 50 Mg Tablet PO 50 mg BID ALEXANDRA Administration Senna/Docusate Sodium 2 tab 10/02/21 18:00 10/02/21 17:00 Sennosides-Docusate Tablet PO 2 tab BID ALEXANDRA Administration PFSH Acute PFSH: Medical History 1st degree AV block AF (paroxysmal atrial fibrillation) Atrial fibrillation Benign prostatic hyperplasia with lower urinary tract symptoms Bladder stone Chronic anticoagulation Essential (primary) hypertension Essential tremor Headache Hypotension, unspecified Hypoxemia requiring supplemental oxygen Osteoarthritis of both knees Physical deconditioning RBBB SVT (supraventricular tachycardia) Urinary retention Surgical History History of tonsillectomy and adenoidectomy Family History Father Cancer Mother , at age 56 Heart attack Social History Smoking and tobacco status: current some day smoker Alcohol intake: current Alcohol intake frequency: holidays/special occasions only Marital status: Current occupational status: retired History of recent travel: No Vitals/I&O/Wt Last Vital Signs Temp 97.6 F 10/02/21 21:08 Pulse 70 10/02/21 21:08 Resp 16 10/02/21 21:08 BP 137/72 10/02/21 21:08 Pulse Ox 96 10/02/21 21:08 10/02/21 10/02/21 10/02/21 06:59 14:59 22:59 Intake Total 100 / 100 1700 / 1700 150 / 1850 Output Total 1425 / 1425 200 / 1625 Balance 100 / 100 275 / 275 -50 / 225 Physical Exam Narrative: GEN: Awake, alert and oriented, no acute distress CVS: S1S2 N RS: CTA B/L Abd: Soft, nt/nd , bs+ 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 At the time of my assessment it is 137/72, rechecked at 10 Pm 127/66 mmHg. Continue lisinopril 40mg po daily. Status: Chronic (3) Atrial fibrillation with RVR: Currently HR well controlled ay 69-70bpm Continue home dose of propranolol Warfarin has already been resumed. Check INR with am labs Status: Resolved Consult Attestations Medical Necessity Statement: per admitting team Coding Level of Care Code Acute Athletic Agent for Chg Fwd Diagnoses Primary osteoarthritis of right knee M17.11 Essential (primary) hypertension I10 Atrial fibrillation with RVR I48.91
[2021-10-03] VITALS (86 sets, daily range): BP systolic 96–165; BP diastolic 52–94; PULSE 56–119; RESP 14–32; TEMP 36.6–37.6; O2SAT 86–100
[2021-10-03] MEDS: acetaminophen 1,000 MG/100 ML PIGGYBACK 400 MG IV (02:40)
[2021-10-03 05:10] LABS: INR 1.16 (0.8-1.2)
[2021-10-03 05:27] LABS: Basophils % 0.2 %; Eosinophils % 0.1 %; Hematocrit 35.8 % (42.0-52.0); Hemoglobin 11.4 g/dL (11.7-16.6); Lymphocytes # 1.1 10^3/uL (0.8-4.8); Lymphocytes % 12.9 %; Mean Corpuscular HGB Conc 31.8 g/dL (30.0-36.0); Mean Corpuscular Hemoglobin 30.9 pg (28.0-34.0); Mean Platelet Volume 11.3 fL (7.4-10.4); Monocytes % 22.6 %; Neutrophils # 5.61 10^3/uL (1.8-7.7); Neutrophils % 63.9 %; Nucleated Red Blood Cells % 0 %; Platelet Count 224 10^3/cmm (130-400); Red Blood Count 3.69 10^6/uL (4.1-5.3); Red Cell Distribution Width 13.1 % (12.1-15.1); White Blood Count 8.8 10^3/uL (4.0-10.0)
[2021-10-03 05:28] LABS: Anion Gap 14.6 (5-19); Blood Urea Nitrogen 13 mg/dL (8-23); Calcium 8.2 mg/dL (8.5-10.5); Carbon Dioxide 22 mmol/L (22-29); Chloride 106 mmol/L (98-107); Glucose 134 mg/dL (65-115); Osmolality Calculated 288 mOsm/kg (285-295); Potassium 4.6 mmol/L (3.5-5.1); Sodium 138 mmol/L (136-145)
[2021-10-03] MEDS: ceFAZolin 2,000 MG in sodium chloride 0.9% (plus) 50 ML 100 MG IV (06:24)
[2021-10-03] MEDS: cholecalciferol (vitamin D3) 1,000 unit Tablet 1000 UNIT PO (07:27)
[2021-10-03] MEDS: warfarin 5 mg Tablet PO (07:27)
[2021-10-03] MEDS: multivitamin therapeutic Tablet 1 TAB PO (07:27)
[2021-10-03] MEDS: primidone 50 mg Tablet PO ×2 (07:28→17:14)
[2021-10-03] MEDS: amiodarone 200 mg Tablet 50 MG PO (07:28)
[2021-10-03] MEDS: calcium carbonate 500 mg Chew Tablet 1000 MG PO ×2 (07:28→17:14)
[2021-10-03] MEDS: oxyCODONE 5 mg IR Tab/Cap PO ×3 (07:28→20:40)
[2021-10-03] MEDS: chlorhexidine gluconate 0.12% Btl 473 mL 30 ML MUCOUS MEM ×2 (07:29→20:49)
[2021-10-03] MEDS: sennosides-docusate Tablet 2 TAB PO ×2 (07:29→17:14)
[2021-10-03] MEDS: iron polysaccharide complex 150 mg Capsule PO ×2 (07:29→17:17)
[2021-10-03] MEDS: lisinopril 20 mg Tablet 40 MG PO (07:29)
[2021-10-03] MEDS: levalbuterol 0.63 mg/3 mL Neb INHALATION ×2 (08:25→11:25)
[2021-10-03] MEDS: budesonide 0.5 mg/2 mL Neb INHALATION ×2 (08:26→19:46)
[2021-10-03] MEDS: acetaminophen 500 mg Tablet 1000 MG PO ×2 (09:22→17:14)
--- NOTE | 2021-10-03 10:55 | ECG_ITS ---
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 Measurements Intervals [place] Rate: 106 P: DC: QRS: 71 QRSD: 140 T: 73 QT: 311 QTc: 414 Interpretive Statements ATRIAL FIBRILLATION WITH RAPID VENTRICULAR RESPONSE INDETERMINATE AXIS RIGHT BUNDLE BRANCH BLOCK [120+ ms QRS DURATION, UPRIGHT V1, 40+ ms S IN I/aVL/V4/V5/V6] INTERPRETATION BASED ON A DEFAULT AGE OF 40 YEARS Compared to ECG 03/04/2021 06:03:46 Indeterminate axis now present Sinus rhythm no longer present First degree AV block no longer present Electronically Signed On 10-03-2021 16:30:04 CDT by Jenaro Rushing M.D. [id number]
[2021-10-03 10:58] LABS: Glucose Point of Care 117 mg/dL (70-110)
--- NOTE | 2021-10-03 10:59 | CT_ITS ---
WS: [id number] CT CHEST ANGIOGRAPHY WITH REFORMATS HISTORY: code TECHNIQUE: Contiguous axial images are obtained through the chest during arterial injection of intrav enous contrast. Images are reconstructed to evaluate the pulmonary arteries. MIP imaging also reviewe d. All CT scans at [facility] use at least one of these dose optimization techniques: automat ed exposure control; mA and/or kV adjustment per patient size (includes targeted exams where dose is matched to clinical indication); or iterative reconstruction. CONTRAST: Omnipaque 350; 95 mL IV. DLP: 484.69 mGy.cm COMPARISON: 07/17/2019 Good opacification of the pulmonary arteries. No central large pulmonary embolism. Very tiny nonocclu sive defect in a subsegmental branch in the LEFT lower lobe. Doubtful this would be symptomatic. Pulm onary artery is normal size. Mild atherosclerosis of the aorta. There is no contrast opacification in the aorta due to the phase of injection for the pulmonary artery. Mild enlargement of the LEFT heart chambers. No RIGHT heart strain. No pericardial effusion. Moderate coronary artery atherosclerosis. Moderate to severe centrilobular emphysema. There is mild motion artifact. Dependent changes are note d bilaterally at the lung bases. No pneumonia. No pneumothorax. Scattered low-attenuation lesions are noted within the liver. 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 Mild tricuspid regurgitation into hepatic veins. No adrenal mass. Ath erosclerosis suprarenal aorta. No definite rib fractures are identified. There are a few mild rib def ormities in the anterior RIGHT mid thorax which could be incomplete fractures. CT/CT angio chest [id number] IMPRESSION: 1. No large pulmonary embolism. 2. There are a few nonocclusive defects in a subsegmental branch of the LEFT l ower lobe which could be chronic. These are not likely to be symptomatic. 3. Moderate chronic emphysema. 4. Mild cardiac enlargement. 5. No pneumothorax. Notified Levi Pratt MD at 10/03/2021 12:42 PM.
--- NOTE | 2021-10-03 11:01 | CT_ITS ---
WS: [id number] CT HEAD NONCONTRAST HISTORY: Postcode. TECHNIQUE: Contiguous axial imaging performed through the brain in 2.5 mm imaging. Bone and soft tiss ue windows. Sagittal and coronal reformats reviewed. All CT scans at [facility] use at least one of these dose optimization techniques: automated exposure control; mA and/or kV adjustment per pa tient size (includes targeted exams where dose is matched to clinical indication); or iterative recon struction. DLP: 854.58 mGy.cm COMPARISON: None available. No acute intracranial hemorrhage, midline shift or mass effect. Mild atrophy and small vessel ischemic disease. Insular ribbons are still apparent. No loss of the gr ay-white matter. Calcification along the anterior interhemispheric falx. Could be a calcified meningi allyssa. No associated soft tissue mass is evident. Ventricles: Normal size with no hydrocephalus. No inferior displacement of the cerebellar tonsils. Paranasal sinuses: As visualized are clear. Mastoid air cells: Well pneumatized. Calvarium and scalp: Skull is intact with no soft tissue edema or swelling. CT/CT head wo con* [id number] IMPRESSION: 1. No acute intracranial hemorrhage or edema. 2. No sulcal effacement. 3. Atrophy and small vessel ischemic disease.
--- NOTE | 2021-10-03 11:22 | XR_ITS ---
WS: [id number] Exam: XR chest 1V portable [id number] Date/Time of Exam: 10/03/2021 11:26 AM Reason For Exam: post compressions Comparison made to last exam 03/03/2021. The lungs are hyperinflated. No acute infiltrates. Chronic interstitial changes. Cardiomediastinal si lhouette is unremarkable for technique. Monitoring leads superimpose the chest. Bony structures are i ntact. No pleural effusions. XR/XR chest 1V portable [id number] IMPRESSION: 1. Pulmonary hyperinflation and chronic interstitial changes. No acute process.
[2021-10-03] MEDS: FUROsemide 10 mg/mL SDV 4mL 40 MG IVP (11:26)
--- NOTE | 2021-10-03 11:27 | PC.NURSE ---
THIS NURSE WAS IN ANOTHER PATIENTS ROOM WHEN THE CODE BLUE WAS CALLED OVER HEAD. UPON ENTERING THE ROOM VIRGINIE CARUSO HAD ALREADY BEGAN RUNNING THE CODE. PATIENT AGONAL BREATHING. ZOLL PADS PLACED, PATIENT IN ABNORMAL RHYTHM. RT BAGGING PATIENT. CODE RAN FOR 7 MINUTES. PATIENT REGAINED PULSE AND RESPONSIVENESS. STAT LABS AND IMAGING ORDER. THIS NURSE ATTEMPTED TO CONTACT PATIENTS AND SON, BUT NO ANSWER. DR BEAVERS NOTIFIED ME THAT AND SON WERE AT SURGICAL SERVICES. I WENT DOWN AND GAVE THEM AN UPDATE OF THE SITUATION AND HOW PATIENT WAS. BEDSIDE REPORT GIVEN TO PAU CARUSO AT ICU 1.
[2021-10-03 11:57] LABS: Troponin T (5th) Once 33 ng/L (0-15)
[2021-10-03 11:59] LABS: Alanine Aminotransferase 39 U/L (0-41); Alkaline Phosphatase 109 IU/L (40-130); Aspartate Amino Transferase 40 U/L (0-40); Blood Urea Nitrogen 13 mg/dL (8-23); Calcium 8.5 mg/dL (8.5-10.5); Carbon Dioxide 23 mmol/L (22-29); Chloride 102 mmol/L (98-107); Globulin 2.7 g/dL (1.3-4.6); Glucose 103 mg/dL (65-115); Magnesium 1.6 mg/dL (1.7-2.3); Osmolality Calculated 282 mOsm/kg (285-295); Phosphorus 2.4 mg/dL (2.5-4.5); Sodium 136 mmol/L (136-145); Total Bilirubin 0.5 mg/dL (0.15-1.2); Total Protein 5.7 g/dL (6.6-8.7)
[2021-10-03 12:02] LABS: Anion Gap 14.6 (5-19); Basophils % 0.4 %; Eosinophils % 0.2 %; Hematocrit 36.7 % (42.0-52.0); Hemoglobin 12.4 g/dL (11.7-16.6); Lactic Sepsis W/Reflex 2.9 mmol/L (0.5-2.2); Lymphocytes # 3.7 10^3/uL (0.8-4.8); Lymphocytes % 34.1 %; Mean Corpuscular HGB Conc 33.8 g/dL (30.0-36.0); Mean Corpuscular Volume 94.6 fl (80-94); Mean Platelet Volume 12.5 fL (7.4-10.4); Monocytes # 1.6 10^3/uL (0.2-0.9); Monocytes % 14.4 %; Neutrophils # 5.33 10^3/uL (1.8-7.7); Nucleated Red Blood Cells # 0.1 /100WBC; Nucleated Red Blood Cells % 0.7 %; Platelet Count 172 10^3/cmm (130-400); Potassium 3.6 mmol/L (3.5-5.1); Red Blood Count 3.88 10^6/uL (4.1-5.3); Red Cell Distribution Width 13.4 % (12.1-15.1); White Blood Count 10.9 10^3/uL (4.0-10.0)
[2021-10-03 12:06] LABS: D Dimer 3.14 ug/mIFEU (0-0.59)
[2021-10-03] MEDS: fentaNYL 12 mcg Patch 1 PATCH TRANSDERMA (12:20)
[2021-10-03] MEDS: enoxaparin 80 mg/0.8 mL Syringe SUBCUT (12:22)
--- NOTE | 2021-10-03 12:22 | PC.NURSE ---
CODE EVENT: Code Blue notification received at 10:51. Immediate response of code team to bedside. Upon arrival, patient found to be in bed with compressions in process. Room cleared of non-code essential coworkers. Patient received one defibrillation due to an underlying ventricular rhythm with no pulse. Compressions resumed immediately. [facility] appropriate per AHA standards throughout this code. Patient received one amp of epi. At next pulse check, zoll monitor showed sinus rhythm with occasional PVC and pulse was present. Patient did not require intubation. ROSC achieved and maintained. Patient received one amp calcium. STAT transfer to ICU. Patient awake, alert, oriented and following commands. Patient transported to ICU 1 where ICU team was ready to assume care. Code report given to SHADY Noland charge ICU. Dr. Pratt at bedside during and after code. Additional orders placed by Dr. Pratt for follow up. Patient's son arrived at front entrance and was escorted back to ICU by Rafael Flores RN.
--- NOTE | 2021-10-03 12:40 | PM.PN ---
Subjective Subjective: Patient is postoperative day 1 for total knee replacement. Patient tolerated the procedure well. Medicine was consulted for high blood pressure postoperatively which were treated by restarting his home oral medications. Patient was working with physical therapy today and while turning out of bed patient collapsed after which JACQUE MARTINEZ was called. During CODE BLUE patient was found to have ventral tachycardia which was treated with 1 set of cardioversion, epinephrine. Patient achieved ROSC after 1 cycle of ACLS protocol CPR. Post achieving ROSC patient was awake and alert, able to have complete conversation, follows simple commands, moving all his limbs, saturating more than 90% on oxygen mask. Patient was complaining of chest pain post CPR. Patient was transferred to ICU. Otherwise prior to the event patient has remained hemodynamically stable, afebrile, without any acute active complaints and was planning to be discharged home with outpatient physical therapy. Vitals/I&O/Wt Last Vital Signs Temp 99.7 F H 10/03/21 12:00 Pulse 77 10/03/21 12:00 Resp 25 H 10/03/21 12:00 BP 137/78 10/03/21 12:00 Pulse Ox 96 10/03/21 12:00 O2 Del Method 10/03/21 12:00 O2 Flow Rate 10 10/03/21 12:00 FiO2 80 10/03/21 11:29 10/02/21 10/03/21 10/03/21 22:59 06:59 14:59 Intake Total 510 / 2210 390 / 2600 50 / 50 Output Total 200 / 1625 500 / 2125 Balance 310 / 585 -110 / 475 50 / 50 Physical Exam Narrative: EXAM NARRATIVE: General: No acute distress, AO x3, NC oxygen supplementation HEENT: PERRLA, pupils bilaterally equal and reactive Chest:Bronchial breath sounds b/l ,decreased air entry bilaterally, fine crackles bilaterally in lower CVS: S1-S2 irregularly irregular, no murmurs, no tachycardia, no gallops, no rubs Abdomen: Soft, nontender, no organomegaly, bowel sounds present, morbidly obese Neuro: No focal deficits, no facial deformity, AO x3, power 5/5 in all limbs Urinary Catheter Management: Raymundo: Cath Placed During This Visit: yes Reason for Continuing Indwelling Catheter: Perioperative Use in Selected Surgeries Urinary Catheter Date of Insertion: 10/02/21 Urinary Catheter Time of Insertion: 07:20 Data : 10/03/21 10:55 10/03/21 10:55 A&P Assessment and plan (1) Cardiac arrest with ventricular fibrillation: Ventricular tachycardia cardiac arrest. Achieved ROSC after 1 cycle of ACLS protocol CPR. Post ROSC patient GCS E4 M5V 6. Stat CBC, CMP, INR, lactate, Pro-Kapil. Stat D-dimer, magnesium, check troponins. Stat CTA chest to rule out PE, CT head and neck. Echocardiogram, lower limb Dopplers. Transfer to ICU. Keep oxygen saturation over 90%, mean arterial pressure over 65. Continue with home dose of propranolol. Hold off on lisinopril for now given possibility of developing YOLY postcode. Replete 2 mg IV magnesium, 1 mg of IV calcium. Keep magnesium around 2, potassium around 4. Increase home dose of amiodarone to 200 mg daily for now. Lasix 40 mg IV 1 dose. DuoNebs every 6 hour, budesonide twice daily. For a possibility of aspiration pneumonitis start patient on Zosyn. Will de-escalate rapidly if patient remains hemodynamically stable, afebrile without leukocytosis. Fentanyl patch for postcode chest pain, morphine 2 mg every 4 hours as needed, ice pack. Stop warfarin. Patient subtherapeutic till now. Start on Lovenox 1 mg/kg body weight every 12 hourly. Most likely will try to get patient to NOAC prior to discharge. Status: Acute (2) Encounter for postoperative care: Postoperative day 1. Physical therapy, pain medication, wound dressing as per orthopedic team. Status: Acute (3) Status post total right knee replacement not using cement: Status: Acute (4) Essential (primary) hypertension: Status: Chronic (5) Atrial fibrillation with RVR: Status: Resolved (6) Chronic anticoagulation: With Coumadin. Currently subtherapeutic. Warfarin has been stopped as an outpatient in view of elective surgery. Hold off on Coumadin. Full dose Lovenox at 1 mg/kg body weight every 12 hourly as per creatinine clearance. Status: Acute (7) COPD (chronic obstructive pulmonary disease): Status: Acute Plan Analgesia: Tylenol every 8 hourly Glycemic control: Not needed Nutrition: Cardiac diet CODE STATUS: Full code PUD prophylaxis: Protonix DVT prophylaxis: Full dose Lovenox will suffice for DVT prophylaxis Discharge planning: Plan to discharge home with home health once medically cleared. Continue with care at ICU level. Attestations Medical Necessity Statement*: Krishna La is being changed to inpatient status as stay will now exceed 2 midnights. Ongoing hospital care is necessary for postcardiac arrest care in a patient who is postoperative day 1 for total knee replacement Critical Care Time: The high probability of a clinically significant, sudden or life threatening deterioration of the patient's [cardiac, pulmonary, neurological] system(s) required my full and direct attention, intervention and personal management. The critical care time is as shown. This time is in addition to time spent performing any reported procedures but includes the following: [x] Data and vital sign review and interpretation [x] Patient assessment, examination and intervention [x] Documentation [x] Medication orders and management Critical Care Time (min): 90 Coding Level of Care Code Acute Urgent Care Technician for vidhi Fwd Diagnoses Cardiac arrest with ventricular fibrillation I46.9; I49.01 Encounter for postoperative care Z48.89 Status post total right knee replacement not using cement Z96.651 Essential (primary) hypertension I10 Atrial fibrillation with RVR I48.91 Chronic anticoagulation Z79.01 COPD (chronic obstructive pulmonary disease) J44.9
--- NOTE | 2021-10-03 12:44 | USCV_ITS ---
Krishna La Age: 76 Gender: M : 1945 Exam Date: 10/03/2021 14:12 Ordering Phys: Levi Pratt MD Technologist: Aden Irene [place]am [place] [facility] [place] Indication: post cardiac arrest BP: 108 / 66 HR: 77 Rhythm: Sinus Technical Quality: Technically difficult study MEASUREMENTS (Male / Female) Normal Values 2D ECHO LV Diastolic Diameter PLAX 4.1 cm 4.2 - 5.9 / 3.9 - 5.3 cm LV Systolic Diameter PLAX 3.2 cm IVS Diastolic Thickness 1.2 cm 0.6 - 1.0 / 0.6 - 0.9 cm IVS Systolic Thickness 1.4 cm LVPW Diastolic Thickness 1.4 cm 0.6 - 1.0 / 0.6 - 0.9 cm LVPW Systolic Thickness 1.3 cm LVOT Diameter 2.2 cm LV Ejection Fraction 2D Teich 43.3 % LV Ejection Fraction MOD 2C 49.9 % LV Ejection Fraction 2C AL 49.0 % LA Diameter 3.1 cm LA Width 3.7 cm LA Height 4.5 cm RA Width 4.6 cm RA Height 5.7 cm Aorta at Sinotubular Diameter 2.3 cm IVC Diameter 1.7 cm M-MODE Aortic Annulus Diameter 2.7 cm LA Ao Ratio MM 1.0 MV E Point Septal Separation 0.6 cm DOPPLER AV Peak Velocity 126.0 cm/s LVOT Peak Velocity 90.0 cm/s AV Area Cont Eq vti 2.3 cm squared AV Area Cont Eq pk 2.6 cm squared TR Peak Velocity 315.0 cm/s TR Peak Gradient 39.7 mmHg TR Mean Velocity 203.8 cm/s TR Mean Gradient 18.5 mmHg TR Velocity Time Integral 81.8 cm Right Atrial Pressure 3.0 mmHg Pulmonary Artery Systolic Pressu 42.7 mmHg RV Acceleration Time 0.1 s RV Ejection Time 0.2 s RV AcT/ET 0.4 FINDINGS Left Ventricle Mild left ventricular hypertrophy. Normal LV size with a borderline low ejection fraction of 50%.abnormal septal motion consistent with conduction abnormality. Right Ventricle Mildly increased right ventricular size. Normal right ventricular systolic function. Right Atrium Mildly increased right atrial size. Left Atrium Normal left atrial size. Mitral Valve Thickened mitral valve. Aortic Valve Thickened aortic valve. Tricuspid Valve Mild tricuspid valve regurgitation. Estimated pulmonary artery peak systolic pressure 43 mmHg Pulmonic Valve Pulmonic valve not well visualized. Pericardium Normal pericardium without effusion. Aorta Plaque seen in the ascending aorta. IVC The inferior vena cava pulmonary and hepatic veins appear normal. CONCLUSIONS Normal LV size with a borderline low ejection fraction of 50%. Abnormal septal motion consistent with conduction abnormality. Mild left ventricular hypertrophy. Mildly increased right ventricular size. Normal right ventricular systolic function. Mildly increased right atrial size. Thickened aortic and mitral valves Mild tricuspid valve regurgitation. Mild pulmonary hypertension with an estimated pulmonary artery peak systolic pressure of 43 mmHg There is no pericardial effusion. There are no intracardiac masses. Technically difficult study because of the poor ultrasonic window. Dr Dwaine Siegel MD FACC (Electronically Signed) Final Date: 03 October 2021 19:34 S
--- NOTE | 2021-10-03 12:45 | USCV_ITS ---
Krishna La Age: 76 Gender: M : 1945 Exam Date: 10/03/2021 14:51 Ordering Phys: Levi Pratt MD Technologist: Aden Irene Exam Location: [facility] [place] Indication: elevated d dimer HISTORY: Patient had right knee replacement yesterday. PROCEDURES: Venous duplex imaging was performed in bilateral lower extremities. The following venous structures were evaluated: common femoral vein, profunda vein, proximal portion of the greater saphenous vein, superficial femoral vein, and the popliteal vein. In addition, the posterior tibial and peroneal trunk were evaluated. Serial compression, augmentation maneuvers, and spectral Doppler flow evaluation were performed. Could not visualize right PTV's. FINDINGS: Normal 2-D Doppler and augmentation and compressibility throughout the lower extremity venous structures. Additional imaging through the proximal calf veins also reveals no thrombus. Limited evaluation of the greater saphenous vein is patent with no thrombus. CONCLUSIONS No DVT bilateral lower extremities. Dr. Alicia Tang DO (Electronically Signed) Final Date: 03 October 2021 16:20 S
[2021-10-03 13:01] LABS: Reflex Lactate Order REFLEX LACTIC ORDERD
[2021-10-03 13:33] LABS: Lactic Acid level (Lactate) 1.8 mmol/L (0.5-2.2)
--- NOTE | 2021-10-03 13:59 | PC.NURSE ---
Received patient Received patient from med surg floor to ICU 1. Pt is awake and answering questions appropriately. Arrived on Oxy mask 8L sats in the mid 90's. RT present. Bedside update given to this nurse and nurse residents. Dr Pratt at bedside. Pt complained of SOB and BIpap was ordered by and placed by RT. Lasix 40mg given after BP syst. higher than 100. IV to pt's left hand no longer patent, new IV started by Areli RN to left AC. Mag 1gm started per order. CXR obtained. Pt's family updated by Dr. Oliver brought to bedside.
--- NOTE | 2021-10-03 14:27 | P.PN_ITS ---
Subjective Subjective: Mr. La underwent right total knee arthroplasty yesterday. This was an uneventful surgery. Postoperatively, the patient was hypertensive, and he was evaluated by the medical team at that time. His hypertension was well controlled. Preoperatively, he had held his Coumadin which was given se condary to his diagnosis of atrial fibrillation. Today, the patient was participating with physical therapy and Occupational Therapy when he leaned sideways while sitting on his bed. He became unresponsive, and a CODE BLUE was called. At that time, the patient was found with a significant arrhythmia. The patient was resuscitated on the floor and transferred to the intensive care unit. The patient was seen subsequent to his CODE BLUE in the intensive care unit as well as at the time of it. Upon evaluation in the intensive care unit, he was alert, oriented, and without significant complaints. Medications: Reviewed: Yes Vitals/I&O/Wt Last Vital Signs Temp 99.7 F H 10/03/21 12:00 Pulse 77 10/03/21 12:00 Resp 25 H 10/03/21 12:00 BP 137/78 10/03/21 12:00 Pulse Ox 96 10/03/21 12:00 O2 Del Method 10/03/21 12:00 O2 Flow Rate 10 10/03/21 12:00 FiO2 80 10/03/21 11:29 10/02/21 10/03/21 10/03/21 22:59 06:59 14:59 Intake Total 510 / 2210 390 / 2600 50 / 50 Output Total 200 / 1625 500 / 2125 Balance 310 / 585 -110 / 475 50 / 50 Physical Exam Const: COMMON NORMALS: no acute distress, average body habitus, patient oriented x3 and alert GENERAL APPEARANCE: cooperative and comfortable ORIENTATION/CONSCIOUSNESS: Yes awake HENMT: COMMON NORMALS: normocephalic and atraumatic HEAD & SCALP: normocephalic and atraumatic Eye: GENERAL EYE: appearance normal, both eyes and all related structures Chest: COMMONS NORMALS: normal inspection of the chest Resp: COMMON NORMALS: normal respiratory effort EFFORT & INSPECTION: Yes able to speak in complete sentences and Yes symmetric chest movement Extremity: RIGHT LOWER EXTREMITY: Yes knee joint (Román dressing is removed in the intensive care unit.) Right knee: Yes inspection (OpSite dressing is dry and intact.) and Yes neurovascular exam (Intact distally. No swelling.) Neuro: COMMON NORMALS: patient oriented x3 SENSORIUM/ORIENTATION: Yes alert Psych: COMMON NORMALS: mental status grossly normal APPEARANCE: Yes grossly normal ATTITUDE: Yes calm and Yes engaged ATTENTION/CONCENTRATION: Yes attention grossly intact Skin: COMMON NORMALS: no rashes or lesions noted GENERAL SKIN EXAM: no rashes or lesions noted Urinary Catheter Management: Raymundo: Cath Placed During This Visit: yes Reason for Continuing Indwelling Catheter: Perioperative Use in Selected Surgeries Urinary Catheter Date of Insertion: 10/02/21 Urinary Catheter Time of Insertion: : Data : 10/03/21 10:55 10/03/21 10:55 A&P Assessment and plan (1) Status post total right knee replacement not using cement: Patient is status post right total knee arthroplasty. He was doing well and was ready for discharge home. While working with physical and Occupational Therapy, the patient had a cardiac event which resulted in a CODE BLUE. He was resuscitated from this and transferred to the intensive care unit. Status: Acute (2) Cardiac arrest with ventricular fibrillation: Status: Acute Attestations Medical Necessity Statement*: Hospitalization as inpatient required for treatment of the patient's cardiac event. Coding Level of Care Code Acute Carton Repairer for Chg Fwd Diagnoses Status post total right knee replacement not using cement Z96.651 Cardiac arrest with ventricular fibrillation I46.9; I49.01
[2021-10-03] MEDS: pantoprazole 40 mg SDV IVP (14:35)
[2021-10-03] MEDS: piperacillin-tazobactam 3.375 GM in sodium chloride 0.9% (plus) 50 ML IV ×2 (14:35→20:28)
[2021-10-03] MEDS: amiodarone 200 mg Tablet PO (15:44)
[2021-10-03] MEDS: ipratropium-albuterol 3 mL Neb INHALATION ×3 (15:54→23:21)
--- NOTE | 2021-10-03 16:58 | ECG_ITS ---
[facility] Test Date: 2021-10-04 Pat Name: Krishna La Department: Room: ICU01 Gender: Male Respiratory Clinician: Aura Joshi : 1945 Requested By: Levi Pratt Order Number: [id number] Herrera MD: Shira Amaya M.D. Interpretive Statements NAME OF STUDY: LEXISCAN SESTAMIBI STRESS TEST INDICATION: Unstable angina, ventricular tachycardia PROCEDURE: At the baseline, the blood pressure was 139/72 mmHg with a heart rate of 76 bpm. The electrocardiogram showed normal sinus rhythm with PAC's. Right bundle branch block. The Lexiscan was infused over a period of 20 seconds. A total of 0.4 milligrams of Lexiscan was infused. The stress phase was continued for a total of 5 minutes. Heart rate at the end of the stress phase was 81 bpm with a blood pressure of 108/61 mmHg. The EKG at the peak infusion revealed sinus rhythm with PACs with no significant ST-T wave changes. Sestamibi was injected 20 seconds after the Lexiscan infusion. Blood pressure at the end of the recovery phase was 103/52 mmHg with a heart rate of 77 beats per minute. CONCLUSION: 1. No significant EKG changes with the LexiScan infusion. 2. No LexiScan induced chest pain or cardiac arrhythmia. 3. Normal blood pressure and heart rate response. 4. Sestamibi/sestamibi perfusion scan pending; see separate report. Electronically Signed On 10-08-2021 10:22:04 CDT by Shira Amaya M.D. [email or web address]
[2021-10-04] VITALS (101 sets, daily range): BP systolic 70–129; BP diastolic 36–81; PULSE 52–132; RESP 11–31; TEMP 36.6–37.7; O2SAT 82–100; BMI 24.4
[2021-10-04] MEDS: enoxaparin 80 mg/0.8 mL Syringe SUBCUT ×2 (00:12→12:27)
[2021-10-04] MEDS: acetaminophen 500 mg Tablet 1000 MG PO ×2 (01:19→12:27)
[2021-10-04] MEDS: oxyCODONE 5 mg IR Tab/Cap PO ×2 (02:52→08:38)
[2021-10-04] MEDS: ipratropium-albuterol 3 mL Neb INHALATION ×4 (03:40→20:40)
[2021-10-04] MEDS: piperacillin-tazobactam 3.375 GM in sodium chloride 0.9% (plus) 50 ML IV ×3 (04:11→21:07)
--- NOTE | 2021-10-04 04:59 | PHA.FALL ---
A Pharmacy Consult Was Conducted For Krishna Tyra Abhinav Due To: Choudhary Fall Scale Risk Level: High Fall Risk On 10/03/21 20:00 And A Medication Fall Risk Score Greater Than 10. The Recommendations Are As Follows: Beers List medications Amiodarone: Effective for maintaining sinus rhythm but has greater toxicities than other antiarrhythmics used in atrial fibrillation; may be reasonable first-line therapy in patients with concomitant heart failure or substantial left ventricular hypertrophy if rhythm control is preferred over rate control Metoclopramide: Can cause extrapyramidal effects, including tardive dyskinesia; risk may be greater in frail older adults and with prolonged exposure Opioids Drug-Drug interactions with other medications: fentanyl, morphine, OxyIR: May cause ataxia, impaired psychomotor function, syncope. Side effects of other profiled medications: primidone: Neurologic: Ataxia, Vertigo Lisinopril: Neurologic: Dizziness (12% to 19% ) Propranolol: Neurologic: Dizziness (Hypertension, 4% to 7% )
--- NOTE | 2021-10-04 06:05 | PC.NURSE ---
Blood Pressure Patient's BP MAP ranging from 59-64. Dr. Palma called and notified; order received for one 500 ml bolus of NS now and to monitor BP following. Medication administered per MAY. All other vitals stable.
[2021-10-04] MEDS: sodium chloride 0.9% 500 ML 999 ML IV ×2 (06:20→17:32)
--- NOTE | 2021-10-04 07:00 | NMCV_ITS ---
NM isis perf SPECT r/s* [id number] Krishna La Age: 76 Gender: M : 1945 Exam Date: 10/04/2021 07:00 Ordering Phys: Levi Pratt MD Technologist: ULISES Plummer Exam Location: [facility] Indications: CHEST PAIN STRESS TEST Please see separate stress [facility] for full findings IMAGE PROTOCOL Rest/Stress 1 Lexiscan Day Radiopharmaceutical Dose (mCi) Administration Site Administered by Rest: Tc-99m 11.0 IV ULISES Boyle Sestamibi Stress:Tc-99m 32.4 IV ULISES Boyle Sestamibi Rest: 04-Oct-2021 60 Discovery 630 Stress: 04-Oct-2021 30 Discovery 630 0.4mg Lexiscan. Supine position only as patient was unable to lay prone. SPECT RESULTS Technical Quality: Excellent Raw Data Analysis: Normal Image Corrections: No attenuation or motion correction applied Summed Stress Score: 3 Summed Rest Score: 2 Summed Difference Score: 3 PERFUSION FINDINGS Small sized perfusion abnormality of mild severity of basal to mid inferolateral and mid anteroseptal blackmon on rest images with reversibility in mid inferoseptal and mid inferolateral wall on stress images. FUNCTIONAL RESULTS (calculated via Gated SPECT) Stress Image LV EF (%): 64 Stress EDV (mL):107 TID: 1.11 Stress ESV (mL):38 FUNCTIONAL FINDINGS: The left ventricle is normal in size. Transient Ischemia Dilatation of 1.1. There is normal left ventricular systolic function. The left ventricular ejection fraction is normal with a value of 64%. There is normal left ventricular wall thickening with no regional wall motion abnormality. IMPRESSIONS 1. Small sized perfusion abnormality of mild severity of basal to mid inferolateral and mid anteroseptal blackmon with reversibility in mid inferolateral and mid inferoseptal blackmon on stress images. 2. This may represent old myocardial infarction in right coronary artery/circumflex artery territory with mild oseas-infarct ischemia. Specificity of this finding is limited as prone images could not be done. 3. Overall left ventricular systolic function is normal without regional wall motion abnormalities, LVEF=64%. 4. EKG portion of the study will be reported separately. Shira Amaya MD (Electronically Signed) Final Date: 04 October 2021 12:24 Amended: 05 October 2021 09:13 C
[2021-10-04 08:07] LABS: Alanine Aminotransferase 26 U/L (0-41); Alkaline Phosphatase 83 IU/L (40-130); Anion Gap 16.5 (5-19); Aspartate Amino Transferase 28 U/L (0-40); Blood Urea Nitrogen 17 mg/dL (8-23); Calcium 8.2 mg/dL (8.5-10.5); Carbon Dioxide 21 mmol/L (22-29); Chloride 102 mmol/L (98-107); Globulin 2.7 g/dL (1.3-4.6); Glucose 102 mg/dL (65-115); Osmolality Calculated 284 mOsm/kg (285-295); Potassium 3.5 mmol/L (3.5-5.1); Sodium 136 mmol/L (136-145); Total Bilirubin 0.7 mg/dL (0.15-1.2); Total Protein 5.7 g/dL (6.6-8.7)
[2021-10-04 08:22] LABS: Basophils % 0.3 %; Eosinophils % 0.2 %; Hematocrit 37.5 % (42.0-52.0); Hemoglobin 11.5 g/dL (11.7-16.6); Lymphocytes # 1.3 10^3/uL (0.8-4.8); Mean Corpuscular HGB Conc 30.7 g/dL (30.0-36.0); Mean Corpuscular Hemoglobin 31.3 pg (28.0-34.0); Mean Corpuscular Volume 102.2 fl (80-94); Mean Platelet Volume 11.3 fL (7.4-10.4); Monocytes # 2.5 10^3/uL (0.2-0.9); Monocytes % 18.9 %; Neutrophils # 9.31 10^3/uL (1.8-7.7); Nucleated Red Blood Cells % 0 %; Platelet Count 191 10^3/cmm (130-400); Red Blood Count 3.67 10^6/uL (4.1-5.3); Red Cell Distribution Width 13.3 % (12.1-15.1); White Blood Count 13.3 10^3/uL (4.0-10.0)
[2021-10-04] MEDS: calcium carbonate 500 mg Chew Tablet 1000 MG PO ×2 (08:38→17:31)
[2021-10-04] MEDS: primidone 50 mg Tablet PO ×2 (08:38→17:31)
[2021-10-04] MEDS: cholecalciferol (vitamin D3) 1,000 unit Tablet 1000 UNIT PO (08:38)
[2021-10-04] MEDS: multivitamin therapeutic Tablet 1 TAB PO (08:38)
[2021-10-04] MEDS: amiodarone 200 mg Tablet PO ×2 (08:38→17:31)
[2021-10-04] MEDS: chlorhexidine gluconate 0.12% Btl 473 mL 30 ML MUCOUS MEM ×4 (08:39→21:09)
[2021-10-04] MEDS: iron polysaccharide complex 150 mg Capsule PO ×2 (08:39→19:00)
--- NOTE | 2021-10-04 09:21 | PM.CONSULT ---
Providers/Reason For Consult Consulting Physician/Specialty*: Dr. Amaya, Cardiology Reason for Consult*: Post Code Attending Physician: Levi Pratt MD Primary Care Provider: Tom Pulido MD History of Present Illness History of Present Illness Krishna La is a 76 year old male with past medical history of hypertension, osteoarthritis of both knees, essential tremors, paroxysmal atrial fibrillation on? home INR checks and moderate to severe emphysema on chronic home oxygen 2 L. He also has h/o urinary retention and h/o? bladder stone?and h/o small to moderate pericardial effusion (resolved on last echo), emphysema and bronchiectasis changes. He was admitted for elective right knee arthroplasty and underwent sx on 10/02/21.. He was doing well post sx and soon after PT Code Blue was called at 10:51. As per documentation, Patient received CPR, one defibrillation due to an underlying ventricular rhythm with no pulse. Compressions resumed immediately. Patient received one amp of epi. At next pulse check, zoll monitor showed sinus rhythm with occasional PVC and pulse was present.? Patient did not require intubation.? ROSC achieved and maintained. ? Patient received one amp calcium and magnesium. I do not have rhythm trip/ print out of rhythm pre/post defibrillation. EKG post code did not show any ST elevation. At the time of evaluation, yesterday evening and this morning patient complains of retrosternal reproducible CP post CPR. He denies any worsening CP/SOB pre sx and since then. He underwent stress test this morning as well. Telemetry shows isolated PVC's and PAC's. No NSVT's. Magnesium 1.6 post code and was replaced. troponin T 33->134->35. CTA with no large PE Review of Systems General: Reports: 10 or more systems reviewed and unremarkable except in HPI and below Const: Denies: fever(s), chills or body aches Eyes: Denies: blurry vision ENMT: Reports: hoarseness; Denies: throat pain Card: Reports: chest pain; Denies: palpitations, irregular heart rhythm, edema, swelling of feet/ankles, lightheadedness, pre-syncope or orthopnea Resp: Denies: dyspnea, productive cough, non-productive cough, pain on inspiration, change in phlegm color or chest congestion GI: Denies: abdominal pain, nausea, vomiting, hematemesis, coffee ground emesis, dysphagia, heartburn, diarrhea, constipation, GI cramping, change in stool character, hematochezia or melena : Denies: flank pain, dysuria, urinary frequency, urinary urgency, urinary hesitancy or hematuria Musc: Reports: joint pain; Denies: neck pain, back pain, extremity pain, joint swelling, joint warmth or deformity Neuro: Denies: numbness in extremities, weakness in extremities, sensory changes, difficulty walking, frequent falls, dizziness, vertigo, Slurred speech present or seizure-like activity Psych: Denies: anxiety or depression Endo: Denies: polyuria, polydipsia or cold intolerance Asfi/Lymph: Denies: easy bruising or easy bleeding Medications/Allergies Home Medications Medication Instructions Recorded Confirmed Last Taken Type furosemide 20 mg tablet (Lasix) 20 mg PO DAILY PRN edema #30 tabs 11/18/19 10/02/21 04/26/20 Rx warfarin 5 mg tablet 7.5 mg PO DAILY 07/25/20 10/02/21 09/27/21 History budesonide-formoterol HFA 160 2 puff inhalation BID #10.2 grams 01/05/21 10/02/21 Unknown Rx mcg-4.5 mcg/actuation aerosol inhaler (Symbicort) warfarin 5 mg tablet 5 mg PO DAILY #90 tabs 01/11/21 10/02/21 09/27/21 Rx amiodarone 200 mg tablet 50 mg PO DAILY #30 tabs 02/20/21 10/02/21 10/02/21 Rx lisinopril 40 mg tablet 40 mg PO DAILY #90 tabs 02/20/21 10/02/21 10/01/21 Rx propranolol 60 mg capsule,24 See Rx Instructions .Route 05/24/21 10/02/21 10/01/21 22:30 Rx hr,extended release .COMPLEX #30 caps primidone 50 mg tablet 50 mg PO BID #180 tabs 06/19/21 10/02/21 10/01/21 Rx albuterol sulfate 90 mcg/actuation 2 inh inhalation Q4H PRN shortness 08/07/21 10/02/21 10/01/21 Rx aerosol inhaler (Ventolin HFA) of breath or wheezing #18 grams oxycodone 5 mg tablet 5 mg PO Q4H PRN Moderate Pain 7 10/03/21 Unknown Rx days #30 tabs Allergies Allergy/AdvReac Type Severity Reaction Status Date / Time ibuprofen [From Advil] Allergy Unknown Verified 09/24/21 10:20 naproxen Allergy NA Verified 09/24/21 10:20 Current Medications Generic Name Dose Route Start Last Admin Trade Name Letty PRN Reason Stop Dose Admin Acetaminophen 1,000 mg 10/03/21 10:00 10/04/21 01:19 Acetaminophen 500 Mg Tablet PO 1,000 mg Q8H ALEXANDRA Administration Albuterol/Ipratropium 3 ml 10/03/21 12:00 10/04/21 07:57 Ipratropium-Albuterol 3 Ml Neb INHALATION Not Given Q4H.RESPIRATORY ALEXANDRA Budesonide 0.5 mg 10/02/21 18:00 10/04/21 07:57 Budesonide 0.5 Mg/2 Ml Neb INHALATION Not Given BID.RESPIRATORY ALEXANDRA Calcium Carbonate 1,000 mg 10/02/21 18:00 10/04/21 08:38 Calcium Carbonate 500 Mg Chew Tablet PO 1,000 mg BID ALEXANDRA Administration Chlorhexidine Gluconate 30 ml 10/02/21 13:00 10/04/21 08:39 Chlorhexidine Gluconate 0.12% Btl 473 Ml MUCOUS MEM 30 ml QID ALEXANDRA Administration Enoxaparin Sodium 80 mg 10/03/21 13:00 10/04/21 00:12 Enoxaparin 80 Mg/0.8 Ml Syringe SUBCUT 80 mg Q12H ALEXANDRA Administration Fentanyl 1 patch 10/03/21 12:00 10/03/21 12:20 Fentanyl 12 Mcg Patch TRANSDERMA 1 patch Q72H ALEXANDRA Administration Piperacillin Sod/Tazobactam 50 mls @ 12.5 mls/hr 10/03/21 13:00 10/04/21 04:11 Sod 3.375 gm/ Sodium Chloride IV 12.5 mls/hr Q8H ALEXANDRA Administration Protocol As Directed Lisinopril 40 mg 10/03/21 09:00 10/03/21 07:29 Lisinopril 20 Mg Tablet PO 40 mg DAILY ALEXANDRA Administration Multivitamins Therapeutic 1 tab 10/03/21 09:00 10/04/21 08:38 Multivitamin Therapeutic Tablet PO 1 tab DAILY ALEXANDRA Administration Mupirocin 1 applic 10/02/21 18:00 10/03/21 17:05 Mupirocin Oint 22 Gm NASAL 10/07/21 17:59 Not Given BID [facility] Protocol Non-Formulary Medication 60 mg 10/02/21 21:00 10/03/21 22:17 Propranolol PO 60 mg BEDTIME ALEXANDRA Administration Oxycodone HCl 5 mg 10/02/21 10:55 10/04/21 08:38 Oxycodone 5 Mg Ir Tab/Cap PO 5 mg Q4H PRN Administration MODERATE PAIN Pantoprazole Sodium 40 mg 10/03/21 13:30 10/03/21 14:35 Pantoprazole 40 Mg Sdv IVP 40 mg Q24H ALEXANDRA Administration Polysaccharide Iron Complex 150 mg 10/02/21 18:00 10/04/21 08:39 Iron Polysaccharide Complex 150 Mg Capsule PO 150 mg BIDWM ALEXANDRA Administration Primidone 50 mg 10/02/21 18:00 10/04/21 08:38 Primidone 50 Mg Tablet PO 50 mg BID ALEXANDRA Administration Senna/Docusate Sodium 2 tab 10/02/21 18:00 10/04/21 08:42 Sennosides-Docusate Tablet PO Not Given BID ALEXANDRA Vitamin D 1,000 unit 10/03/21 09:00 10/04/21 08:38 Cholecalciferol (Vitamin D3) 1,000 Unit Tablet PO 1,000 unit DAILY ALEXANDRA Administration PFSH Acute PFSH: Medical History 1st degree AV block AF (paroxysmal atrial fibrillation) Atrial fibrillation Benign prostatic hyperplasia with lower urinary tract symptoms Bladder stone Chronic anticoagulation COPD (chronic obstructive pulmonary disease) Essential (primary) hypertension Essential tremor Headache Hypotension, unspecified Hypoxemia requiring supplemental oxygen Osteoarthritis of both knees Physical deconditioning RBBB SVT (supraventricular tachycardia) Urinary retention Surgical History History of tonsillectomy and adenoidectomy Family History Father Cancer Mother , at age 56 Heart attack Social History Smoking and tobacco status: current some day smoker Alcohol intake: current Alcohol intake frequency: holidays/special occasions only Marital status: Current occupational status: retired History of recent travel: No Vitals/I&O/Wt Last Vital Signs Temp 98 F 10/04/21 04:00 Pulse 76 10/04/21 09:00 Resp 18 10/04/21 09:00 BP 108/69 10/04/21 09:00 Pulse Ox 90 10/04/21 09:00 O2 Del Method 10/04/21 06:00 O2 Flow Rate 3 10/04/21 06:00 FiO2 80 10/03/21 11:29 10/03/21 10/04/21 10/04/21 22:59 06:59 14:59 Intake Total 654 / 704 50 / 754 Output Total 2200 / 2200 600 / 2800 Balance -1546 / -1496 -550 / -2046 Weight last 48 hrs Weight 185 lb Physical Exam Narrative: Gen: pleasant elderly man sitting in bed, NAD, currently saturating well on 3 L O2 via NC HEENT/Neck:No JVD RS: DEcreased AEB/L, No wheezes or rales CVS: S1, S2 irregular, No murmur, rub or gallop CHEMICAL RADIATION TECHNICIAN: AAOx 3, No FND PA: soft, NTND, BS2+ Ext: trace R LE edema, right LE dressing in place. Psych: normal mood and appropriate affect Urinary Catheter Management: Arymundo: Cath Placed During This Visit: yes Reason for Continuing Indwelling Catheter: Accurate Measurement of Urinary Output in Critically Ill Patients Urinary Catheter Date of Insertion: 10/02/21 Urinary Catheter Time of Insertion: 07:20 Data : 10/05/21 02:34 10/05/21 02:34 A&P Assessment and plan (1) Cardiac arrest with successful resuscitation: Reported to be VT arrest per code team. -No tele/defib strips available for review. -Stress test with small sized perfusion abnormality of mild severity of basal to mid?inferolateral and mid anteroseptal blackmon with reversibility in mid? ?inferolateral and mid inferoseptal blackmon on stress images. This may represent old myocardial infarction in right coronary?artery/circumflex artery territory with mild oseas-infarct ischemia -Options here are to continue with medical management with [facility] now/ later as needed -Amiodarone 200 BID x 2 weeks and then 200 mg daily; keep electrolytes in normal range -echo with normal LV function. Not a candidate for ICD presently -will discuss with patient and family. will see if we can get him approved for life vest. Status: Acute (2) AF (paroxysmal atrial fibrillation): Status: Acute (3) Status post total right knee replacement not using cement: Status: Acute (4) COPD (chronic obstructive pulmonary disease): Status: Acute (5) Essential tremor: Status: Acute Plan COPD Thank you for allowing me to participate in patient's care. 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
[2021-10-04] MEDS: regadenoson 0.4 Mg/5 ml Syringe IVP (09:28)
[2021-10-04 09:51] LABS: Troponin T (5th) Once 35 ng/L (0-15)
[2021-10-04 10:03] LABS: Troponin T (5th) Once 134 ng/L (0-15)
--- NOTE | 2021-10-04 11:34 | P.PN_ITS ---
Subjective Subjective: Patient is seen today in ICU. He is doing well and is awake and alert. His son and mother are there as well. Medications: Reviewed: Yes Vitals/I&O/Wt Last Vital Signs Temp 98 F 10/04/21 04:00 Pulse 80 10/04/21 11:16 Resp 16 10/04/21 11:16 BP 108/69 10/04/21 10:15 Pulse Ox 94 10/04/21 11:16 O2 Del Method 10/04/21 11:16 O2 Flow Rate 3 10/04/21 11:16 FiO2 80 10/03/21 11:29 10/03/21 10/04/21 10/04/21 22:59 06:59 14:59 Intake Total 654 / 704 50 / 754 Output Total 2200 / 2200 600 / 2800 Balance -1546 / -1496 -550 / -2046 Weight last 48 hrs Weight 185 lb Physical Exam Const: COMMON NORMALS: no acute distress, average body habitus, patient oriented x3 and alert GENERAL APPEARANCE: cooperative and comfortable ORIENTATION/CONSCIOUSNESS: Yes awake HENMT: COMMON NORMALS: normocephalic and atraumatic HEAD & SCALP: normocephalic and atraumatic Eye: GENERAL EYE: appearance normal, both eyes and all related structures Chest: COMMONS NORMALS: normal inspection of the chest Resp: COMMON NORMALS: normal respiratory effort EFFORT & INSPECTION: Yes able to speak in complete sentences and Yes symmetric chest movement Extremity: RIGHT LOWER EXTREMITY: Yes knee joint (Some ecchymosis about the knee secondary to high anticoagulation) Right knee: Yes inspection (Dressing is dry and intact with no drainage.), Yes palpation (Minimal to no tenderness.), Yes ROM (Not evaluated.) and Yes neurovascular exam (Intact distally.) Neuro: COMMON NORMALS: patient oriented x3 SENSORIUM/ORIENTATION: Yes alert Psych: COMMON NORMALS: mental status grossly normal APPEARANCE: Yes grossly normal ATTITUDE: Yes calm and Yes engaged ATTENTION/CONCENTRATION: Yes attention grossly intact Skin: COMMON NORMALS: no rashes or lesions noted GENERAL SKIN EXAM: no rashes or lesions noted Urinary Catheter Management: Raymundo: Cath Placed During This Visit: yes Reason for Continuing Indwelling Catheter: Accurate Measurement of Urinary Output in Critically Ill Patients Urinary Catheter Date of Insertion: 10/02/21 Urinary Catheter Time of Insertion: 07:20 Data : 10/04/21 07:15 07/28/22 07:15 A&P Assessment and plan (1) Status post total right knee replacement not using cement: The patient remains in ICU following his CODE BLUE yesterday. With regards to his knee, he is doing well. There is no sign of infection or other complica tion. His dressing is dry and intact. He is on full anticoagulation, and there is some ecchymosis about the knee, but bleeding appears to be well controlled. The patient is advised that I am going to be out of town, and my call coverage may come to see him. At this point, there is no need for ongoing visits here in the hospital. From my perspective, he may be discharged home with home health or with outpatient therapy as he desires. He is to be weightbearing as tolerated. For DVT prophylaxis, his anticoagulant for cardiac issues should suffice. Oxycodone has been sent to the pharmacy for pain management. He will follow-up with me as scheduled. Status: Acute Attestations Medical Necessity Statement*: Ongoing care following total knee arthroplasty s econdary to cardiac issues. 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
--- NOTE | 2021-10-04 12:33 | USCV_ITS ---
Krishna La Age: 76 Gender: M : 1945 Exam Date: 10/04/2021 13:03 Ordering Phys: Shira Amaya MD ([email or web address]) Technologist: Frank Corey Exam Location: [facility] [place] Indication: Post Code BP: 125 / 72 HR: 77 Rhythm: Sinus Technical Quality: Adequate MEASUREMENTS (Male / Female) Normal Values 2D ECHO LV Ejection Fraction MOD 2C 57.9 % LV Ejection Fraction 2C AL 58.4 % FINDINGS Left Ventricle Right Ventricle Right Atrium Left Atrium Mitral Valve Aortic Valve Tricuspid Valve Pulmonic Valve Pericardium Aorta IVC CONCLUSIONS 1. This is a limited study with echo contrast. 2. Normal left ventricular size and normal systolic function with an estimated ejection fraction of 55 %. Abnormal septal motion consistent with conduction abnormality. No regional wall motion abnormality. 3. Interpretation limited by frequent ectopy. Shira Amaya MD (Electronically Signed) Final Date: 04 October 2021 16:24 S
[2021-10-04] MEDS: potassium chloride ER 20 mEq Tablet PO (12:37)
[2021-10-04] MEDS: mupirocin oint 22 gm 1 APPLIC NASAL ×2 (12:38→17:33)
[2021-10-04] MEDS: pantoprazole 40 mg SDV IVP (12:38)
[2021-10-04] MEDS: perflutren protein-a microsphr 0.22 mg/mL SDV 3 mL IV (13:16)
--- NOTE | 2021-10-04 15:59 | P.PN_ITS ---
Subjective Subjective: Overnight patient had 1 episode of low blood pressures for which he required 5 cc IV bolus. Today morning on examination seen while going for Lexiscan stress test. Patient is awake and alert. Denies any nausea vomiting, headache. Has remained otherwise stable, afebrile. Saturating 100% on 3 L nasal cannula. Vitals/I&O/Wt Last Vital Signs Temp 98 F 10/04/21 04:00 Pulse 68 10/04/21 14:45 Resp 15 10/04/21 14:45 BP 83/45 10/04/21 14:45 Pulse Ox 100 10/04/21 14:45 O2 Del Method 10/04/21 11:16 O2 Flow Rate 3 10/04/21 11:16 FiO2 80 10/03/21 11:29 10/04/21 10/04/21 10/04/21 06:59 14:59 22:59 Intake Total 50 / 754 410 / 410 Output Total 600 / 2800 Balance -550 / -2046 410 / 410 Weight last 48 hrs Weight 83.915 kg Physical Exam Narrative: EXAM NARRATIVE: General: No acute distress, AO x3, NC oxygen supplementation HEENT: PERRLA, pupils bilaterally equal and reactive Chest:Bronchial breath sounds b/l ,decreased air entry bilaterally, fine crackles bilaterally in lower CVS: S1-S2 irregularly irregular, no murmurs, no tachycardia, no gallops, no rubs Abdomen: Soft, nontender, no organomegaly, bowel sounds present, morbidly obese Neuro: No focal deficits, no facial deformity, AO x3, power 5/5 in all limbs Urinary Catheter Management: Raymundo: Cath Placed During This Visit: yes Reason for Continuing Indwelling Catheter: Accurate Measurement of Urinary Outpu t in Critically Ill Patients Urinary Catheter Date of Insertion: 10/02/21 Urinary Catheter Time of Insertion: 07:20 Data : 10/04/21 07:15 10/04/21 07:15 A&P Assessment and plan (1) Cardiac arrest with ventricular fibrillation: Ventricular tachycardia cardiac arrest. Achieved ROSC after 1 cycle of ACLS protocol CPR. Post ROSC patient GCS E4 M5V 6. Appreciate CTA, CT head, echocardiogram, lower limb Doppler results. Plan for Lexiscan stress test today to rule out ischemic etiology. Keep magnesium around 2, potassium around 4. Amiodarone increased to 200 mg twice daily. Keeping her blood pressure over 65. Patient overall net negative. 500 cc IV bolus. Followed by normal saline at 50 cc/h for 1 bag. Keep saturation over 88%. Continue with Zosyn for now. DuoNebs every 6 hour, budesonide twice daily. Hemoglobin has remained stable. Will consult cardiology for further evaluation and management. Continue with Lovenox at 1 mg/kg body weight every 12 hourly. Will discuss with patient and family regarding anticoagulation with NOAC versus warfarin. Status: Acute (2) Encounter for postoperative care: Postoperative day 2. Physical therapy as per orthopedic team. For medication?Tylenol 325 mg every 6 hourly, [place] 5 mg every 6 hourly. We will try to avoid oversedation. Status: Acute (3) Status post total right knee replacement not using cement: Status: Acute (4) Essential (primary) hypertension: Goal blood pressure less than 140/90 mmHg with mean over 65. Hold off on propranolol given soft blood pressures overnight. Status: Chronic (5) Atrial fibrillation with RVR: Status: Resolved (6) Chronic anticoagulation: With Coumadin. Currently subtherapeutic. Warfarin has been stopped as an outpatient in view of elective surgery. Hold off on Coumadin. Full dose Lovenox at 1 mg/kg body weight every 12 hourly as per creatinine clearance. Status: Acute (7) COPD (chronic obstructive pulmonary disease): Status: Acute Plan Analgesia: Tylenol 325 mg every 6 hourly as needed, [place] 5 mg every 6 hourly as needed. Glycemic control: Not needed Nutrition: Cardiac diet CODE STATUS: Full code PUD prophylaxis: Protonix DVT prophylaxis: Full dose Lovenox will suffice for DVT prophylaxis Discharge planning: Plan to discharge home with home health once medically cleared. Continue with care at ICU level. Attestations Medical Necessity Statement*: Requires further hospitalization for management of postcardiac arrest in a patient with recent knee replacement while ischemic etiology is ruled out. Time Spent in Patient Care: Greater than 35 minutes Coding Level of Care Code Acute Assistant Grocery Store Manager for Daron Pina Diagnoses Cardiac arrest with ventricular fibrillation I46.9; I49.01 Encounter for postoperative care Z48.89 Status post total right knee replacement not using cement Z96.651 Essential (primary) hypertension I10 Atrial fibrillation with RVR I48.91 Chronic anticoagulation Z79.01 COPD (chronic obstructive pulmonary disease) J44.9
[2021-10-04] MEDS: sodium chloride 0.9% 1,000 ML 50 ML IV (17:32)
[2021-10-04] MEDS: HYDROcodone-acetaminophen 5-325 mg Tablet 1 TAB PO (17:32)
[2021-10-04] MEDS: budesonide 0.5 mg/2 mL Neb INHALATION (20:40)
[2021-10-05] VITALS (60 sets, daily range): BP systolic 83–145; BP diastolic 41–90; PULSE 50–155; RESP 14–30; TEMP 36.6–37; O2SAT 76–100; BMI 25.6
[2021-10-05] MEDS: ipratropium-albuterol 3 mL Neb INHALATION ×5 (00:04→20:00)
[2021-10-05] MEDS: enoxaparin 80 mg/0.8 mL Syringe SUBCUT (01:08)
[2021-10-05] MEDS: acetaminophen 325 mg Tablet PO (01:15)
[2021-10-05 03:26] LABS: Alanine Aminotransferase 15 U/L (0-41); Albumin Level 2.4 g/dL (3.5-5.2); Alkaline Phosphatase 69 IU/L (40-130); Anion Gap 12.8 (5-19); Aspartate Amino Transferase 17 U/L (0-40); Blood Urea Nitrogen 22 mg/dL (8-23); Carbon Dioxide 22 mmol/L (22-29); Chloride 104 mmol/L (98-107); Globulin 2.6 g/dL (1.3-4.6); Glucose 101 mg/dL (65-115); Magnesium 1.8 mg/dL (1.7-2.3); Osmolality Calculated 283 mOsm/kg (285-295); Potassium 3.8 mmol/L (3.5-5.1); Sodium 135 mmol/L (136-145); Total Bilirubin 0.6 mg/dL (0.15-1.2)
[2021-10-05 03:47] LABS: Basophils % 0.2 %; Eosinophils % 0.5 %; Lymphocytes % 11.7 %; Mean Corpuscular HGB Conc 33.3 g/dL (30.0-36.0); Mean Corpuscular Hemoglobin 31.3 pg (28.0-34.0); Mean Corpuscular Volume 93.8 fl (80-94); Mean Platelet Volume 11.5 fL (7.4-10.4); Monocytes # 1.4 10^3/uL (0.2-0.9); Monocytes % 16.2 %; Neutrophils % 70.8 %; Nucleated Red Blood Cells % 0 %; Platelet Count 162 10^3/cmm (130-400); Red Blood Count 2.88 10^6/uL (4.1-5.3); Red Cell Distribution Width 13.5 % (12.1-15.1); White Blood Count 8.8 10^3/uL (4.0-10.0)
[2021-10-05] MEDS: piperacillin-tazobactam 3.375 GM in sodium chloride 0.9% (plus) 50 ML IV (04:18)
--- NOTE | 2021-10-05 05:59 | PC.NURSE ---
Shift Summary Patient had an uneventful shift, remains on 3LNC and is alert/oriented x4. IVF & Zosyn infusing per orders please see MAR for details. Raymundo catheter drained 250 mls of urine overnight. Right knee dressing still dry/intact, no other wounds/skin issues noted at this time. Patient reported pain overnight, PRN medication administered.
--- NOTE | 2021-10-05 06:49 | PC.NURSE ---
New Orders Received Dr. Amaya called and asked this nurse to make the patient NPO. She then said she would be in to speak with the patient this morning.
[2021-10-05] MEDS: budesonide 0.5 mg/2 mL Neb INHALATION ×2 (07:42→20:00)
[2021-10-05] MEDS: amiodarone 200 mg Tablet PO ×2 (09:04→16:17)
[2021-10-05] MEDS: primidone 50 mg Tablet PO ×2 (09:04→16:16)
--- NOTE | 2021-10-05 09:08 | XACV_ITS ---
Exam Room: [facility] Ht: 185 cm Wt: 88 kg BSA: 2.14 m2 Gender: Male : 1945 Any Known Allergies: Other Exam Priority: Routine Procedure(s): Procedure Description: Diagnostic procedure Procedure Description: Left Heart Catheterization Procedure Description: Left ventriculography Procedure Description: Coronary Angiography Procedure Description: Pressure Wire Diagnostic Cath Status: Elective Diagnostic Findings * Patient had some form of arrest on the orthopedic floor after knee surgery. No troponin leak. Stress testing revealed subtle abnormalities in the distribution of the right coronary artery and circumflex. Angiography was recommended. * Angiography reveals left coronary artery dominance. The circumflex is a large vessel and exhibits a eccentric 30% stenosis in the midportion. Otherwise the vessel is normal. The right is a small nondominant vessel which is normal. The LAD contains a 50% stenosis in the proximal portion. This underwent IFR which was 0.99. The remainder the vessel is normal. Interventional Findings * IFR of the proximal LAD is 0.99. Conclusions 1. Nonobstructive coronary artery disease with 50% proximal LAD stenosis, IFR 0.99. 30% eccentric mid circumflex stenosis. Left dominant system. Essentially normal LV function with mild hypokinesis of the inferior base. Interventional RX Recommendation: none Diagnostic RX Recommendation: medical therapy and/or counseling Anticoagulation: Heparin Ventriculography Ejection Fraction: 50.0 % Pressures Phase:Rest AO : 132 / 62 ( 90 ) @ 2:03:00 PM 111 / 66 ( 87 ) @ 2:04:00 PM 108 / 65 ( 86 ) @ 2:06:00 PM 109 / 48 ( 75 ) @ 2:16:00 PM 112 / 51 ( 77 ) @ 2:16:00 PM 131 / 65 ( 92 ) @ 2:20:00 PM 162 / 67 ( 100 ) @ 2:48:00 PM LV : 114 / -6 / 8 @ 2:15:00 PM 110 / -5 / 12 @ 2:16:00 PM 118 / -5 / 13 @ 2:16:00 PM Valves Phase:DefaultPhase AV : 0.0 @ 2:02:05 PM AV Mean Gradient: 0.0 @ 2:02:05 PM Clinical Evaluation EBL: 5mL-10mL Procedural Details Procedure Consent Obtained. Current Diagnosis : NSTEMI. Pre-Procedure Time Out. Identified patient by full name and date of as verbalized by the patient/guarantor. Does the consent match the physician's order: Yes. Accurate & Complete Informed Consent: Yes. Inpatient/Outpatient History & Physical on Chart: Yes. If H&P is completed, is and addenduem needed: No; If yes, is the addendum complete: N/A. Visualize and Verify Site with Patient/Guarantor: N/A. Relevant Radiology Images available: Yes. Pre-op teaching completed and patient verbalized understanding. The risks, benefits, and alternatives of sedation and/or procedure were discussed by physician. The patient agrees to continue. Procedure started. [facility] Clinical Fraility Score: 3: Managing Well. Diesel Locomotive Firer Indications: ACS > 24 hours. Chest Pain Symptom Assessment: Asymptomatic. Correct patient, site and procedure confirmed by cath team. Cardiovascular Instability: Yes, if yes, Ventricular Arrhythmias. Post Code. PERRLA. Strong, equal hand luggage repairer bilaterally. Lungs clear x 5 lobes. IV Site on Arrival: 18 gauge in the left anticubital. IV Fluids: 0.9% NaCl at KVO. 0 mL infused prior to hemodialysis lab technician. Oxygen started at 10liters/min via 100% non-rebreather mask. right groin was prepped with chloroprep then draped in the usual sterile fashion. Physician notified. Baseline sample Acquired. HR: 89 BPM. Physician arrived. Physician scrubbed in. Immediate Pre-Procedure Time Out. Correct Patient: Yes; Correct Procedure: Yes; Correct Site: Yes; Correct Patient Position: Yes; Correct Supplies: Yes; Dried Flammable Prep: Yes; Blood Products Available: N/A;. Lidocaine 1% infiltrated to the right radial. Arterial access obtained. A 6 st helenian TIG catheter in over wire. wire out. glidewire inserted. Multiple views taken of left coronary artery. Catheter redirected to the RCA. Multiple views taken of right coronary artery. Catheter removed over the glide wire. A [address] helenian Angled Pig catheter in over wire. [employer] called to help with IFR wire. EDP Sample taken: LV 114/-7,8; HR: 77 BPM; SpO2: 97%. LV gram performed in TRINH @ 10 mL/second for a total of 30 mL. EDP Sample taken: LV 110/-6,12; HR: 81 BPM; SpO2: 97%. Pullback taken: LV 118/-6,13; AO 109/48(75); Mean: 0mmHg, Peak to Peak: 0mmHg, SEP: 14sec/min; HR: 76 BPM; SpO2: 96%. Taking patient off the table to move to Room 2 for IFR. Vital chart was stopped. Procedure started. Patient arrived in room 2. Catheter removed over the glide wire. [address] st helenian XB 3 guide catheter was inserted over the wire. FFR guidewire was advanced through the guide catheter to lesion in the prox LAD. Fractional flow reserve measurements obtained. Results: 0.99. Wire out. Guide catheter out. Physician scrubbed out. A TR Band was successful obtaining hemostatsis at the Right Radial artery insertion site. Post Procedure: Pulses reassessed and unchanged. PERRLA. Strong, equal hand luggage repairer bilaterally. No VTE prophylaxis required. Medication's Wasted: Lidocaine 1% = 3 mL. Medication's Wasted: Nitro = 49.8 mg. Medication's Wasted: Heparin = 1000 units. Total IV fluids: 75 mL. Complications: None. Estimated blood loss: 5mL-10mL. Responsiveness - Normal response to verbal stimuli; alert and oriented, PERRLA. Airway - Unaffected, no intervention required; spontaneous ventilation. Circulation: W/N/L, pulses unchanged. Nausea/Vomiting: No. Procedure completed. Patient transferred by bed to ICU. Vital chart was stopped. Access Site Site: Right Radial artery Sheath Size: 6 Fr Hemostasis Method: TR Band Hemostasis Success: Successful Procedure Medications Start: 12:43 PM Stop: 12:43 PM Medication: Fentanyl Amount: 25 mcg Route: I.V. Start: 12:46 PM Stop: 12:46 PM Medication: Versed 1 mg and Fentanyl 25 mcg Amount: 1 Route: I.V. Start: 12:56 PM Stop: 12:56 PM Medication: Versed Amount: 1 mg Route: I.V. Start: 12:57 PM Stop: 12:57 PM Medication: Nitrogylcerin Amount: 200 mcg Route: I.A. Start: 1:05 PM Stop: 1:05 PM Medication: Heparin Amount: 5000 units Route: I.V. Start: 1:08 PM Stop: 1:08 PM Medication: Nitrogylcerin Amount: 200 mcg Route: I.A. Start: 1:14 PM Stop: 1:14 PM Medication: Fentanyl Amount: 25 mcg Route: I.V. Start: 1:20 PM Stop: 1:20 PM Medication: Versed Amount: 1 mg Route: I.V. Start: 1:47 PM Stop: 1:47 PM Medication: Versed 1 mg and Fentanyl 25 mcg Amount: 1 Route: I.V. I, the attending physician, have reviewed and verified all procedure medications. Yes, all medications given per verbal order History/Risk Factors Hypertension: Yes Dyslipidemia: No Peripheral Arterial Disease (PAD): No Myocardial Infarction (WA): No Obesity: No Prior Interventions PCI: No CABG: No Valve Surgery: No Report Signatures Finalized by Dr. Jenaro Rushing MD on 10/05/2021 02:07 PM
[2021-10-05] MEDS: mupirocin oint 22 gm 1 APPLIC NASAL ×2 (09:42→16:17)
[2021-10-05] MEDS: sodium chloride 0.9% 1,000 ML 50 ML IV ×3 (09:42→12:10)
--- NOTE | 2021-10-05 10:04 | P.PN_ITS ---
Subjective Subjective: He feels well. No worsening of chest pain. Medications: Reviewed: Yes Vitals/I&O/Wt Last Vital Signs Temp 98.2 F 10/05/21 04:00 Pulse 95 10/05/21 08:15 Resp 17 10/05/21 08:15 BP 109/48 10/05/21 08:15 Pulse Ox 98 10/05/21 08:15 O2 Del Method 10/05/21 07:42 O2 Flow Rate 3 10/05/21 07:42 FiO2 80 10/03/21 11:29 10/04/21 10/05/21 10/05/21 22:59 06:59 14:59 Intake Total 550 / 960 390 / 1350 50 / 50 Output Total 250 / 250 Balance 550 / 960 140 / 1100 50 / 50 Weight last 48 hrs Weight 194 lb Weight 185 lb Physical Exam Narrative: Gen: pleasant elderly man sitting in bed, NAD, currently saturating well on 3 L O2 via NC HEENT/Neck:No JVD RS: DEcreased AEB/L, No wheezes or rales CVS: S1, S2 irregular, No murmur, rub or gallop RECREATION SPECIALIST: AAOx 3, No FND PA: soft, NTND, BS2+ Ext: trace R LE edema, right LE dressing in place. Psych: normal mood and appropriate affect Urinary Catheter Management: Raymundo: Cath Placed During This Visit: yes Reason for Continuing Indwelling Catheter: Accurate Measurement of Urinary Output in Critically Ill Patients Urinary Catheter Date of Insertion: 10/02/21 Urinary Catheter Time of Insertion: 07:20 Data : 10/05/21 02:34 10/05/21 02:34 A&P Assessment and plan (1) Cardiac arrest with successful resuscitation: Reported to be VT arrest per code team. -No tele/defib strips available for review. -Stress test with small sized perfusion abnormality of mild severity of basal to mid?inferolateral and mid anteroseptal blackmon with reversibility in mid? ?inferolateral and mid inferoseptal blackmon on stress images. This may represent old myocardial infarction in right coronary?artery/circumflex artery territory with mild oseas-infarct ischemia. Reliability of this finding is questionable d/t no prone imaging. -Options here are to continue with medical management with [facility] now/ later as needed -Amiodarone 200 BID x 2 weeks and then 200 mg daily; keep electrolytes in normal range -echo with normal LV function. Not a candidate for ICD presently -After discussing with patient and family at length, decision was made to proceed with [facility] today. Risks and benefits were discussed with the patients. Possible complications including risk of heart attack stroke and , coronary perforation, arrhythmia, cardiac tamponade in urgent CABG were discussed with the patient as well. Status: Acute (2) AF (paroxysmal atrial fibrillation): Status: Acute (3) Status post total right knee replacement not using cement: Status: Acute (4) COPD (chronic obstructive pulmonary disease): Status: Acute (5) Essential tremor: Status: Acute (6) Essential (primary) hypertension: . Status: Chronic Plan COPD Thank you for allowing me to participate in patient's care. 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
[2021-10-05] MEDS: aspirin 325 mg Tablet PO (10:27)
[2021-10-05] MEDS: fixodent 39 gm Tube 1 APPLIC DENTAL (10:39)
--- NOTE | 2021-10-05 11:12 | PC.NURSE ---
pending angiogram for this pm anxious talked with pt at length
[2021-10-05] MEDS: diphenhydrAMINE 50 mg Capsule PO (12:29)
--- NOTE | 2021-10-05 12:46 | PM.PN ---
Subjective Subjective: No complaints overnight. Blood pressure is a lot better. Today morning examination patient is awake and alert. Sitting up in bed. Denies any nausea, vomiting, headache. States he is nervous about the cardiac angiogram being done for him during the day today. We discussed regarding his reservations, merits versus demerits. For now patient is agreeable to go ahead with the procedure. Denies any chest pain. Has remained stable on telemetry. Vitals/I&O/Wt Last Vital Signs Temp 98.6 F 10/05/21 09:15 Pulse 95 10/05/21 12:00 Resp 25 H 10/05/21 12:00 BP 116/63 10/05/21 12:00 Pulse Ox 78 L 10/05/21 11:00 O2 Del Method 10/05/21 07:42 O2 Flow Rate 3 10/05/21 07:42 FiO2 80 10/03/21 11:29 10/04/21 10/05/21 10/05/21 22:59 06:59 14:59 Intake Total 550 / 960 390 / 1350 1539.167 / 1539.167 Output Total 250 / 250 875 / 875 Balance 550 / 960 140 / 1100 664.167 / 664.167 Weight last 48 hrs Weight 87.997 kg Weight 83.915 kg Physical Exam Narrative: EXAM NARRATIVE: General: No acute distress, AO x3, NC oxygen supplementation HEENT: PERRLA, pupils bilaterally equal and reactive Chest:Bronchial breath sounds b/l ,decreased air entry bilaterally, fine crackles bilaterally in lower CVS: S1-S2 irregularly irregular, no murmurs, no tachycardia, no gallops, no rubs Abdomen: Soft, nontender, no organomegaly, bowel sounds present, morbidly obese Neuro: No focal deficits, no facial deformity, AO x3, power 5/5 in all limbs Urinary Catheter Management: Raymundo: Cath Placed During This Visit: yes Reason for Continuing Indwelling Catheter: Accurate Measurement of Urinary Output in Critically Ill Patients Urinary Catheter Date of Insertion: 10/02/21 Urinary Catheter Time of Insertion: 07:20 Data : 10/05/21 02:34 10/05/21 02:34 A&P Assessment and plan (1) Cardiac arrest with ventricular fibrillation: Ventricular tachycardia cardiac arrest. Achieved ROSC after 1 cycle of ACLS protocol CPR. Post ROSC patient GCS E4 M5V 6. Appreciate CTA, CT head, echocardiogram, lower limb Doppler results. Appreciate Lexiscan stress test result and cardiology recommendations. Plan for left heart cath as per cardiology today. Patient denies any active chest pain. Keep magnesium around 2, potassium around 4. Amiodarone increased to 200 mg twice daily. Maintain blood pressure over 65. Patient overall net negative. Continue with normal saline at 50 cc/h for 1 bag. Keep saturation over 88%. Stop antibiotics as patient has remained hemodynamically stable, afebrile without leukocytosis. DuoNebs every 6 hour, budesonide twice daily. Hemoglobin has remained stable. Continue with Lovenox at 1 mg/kg body weight every 12 hourly. Discussed with patient regarding NOAC versus warfarin as an outpatient. He states he was not on NOAC because of financial constraints. We discussed regarding [facility] and financial plan. Patient states if he is able to get medication for cheaper [place] he will be more than happy to be on NOAC. Discussed with case management. Patient will be able to get Xarelto. Patient is agreeable. Plan to discharge patient on Xarelto. Will stop Lovenox and warfarin on discharge. Status: Acute (2) Encounter for postoperative care: Postoperative day 3. Physical therapy as per orthopedic team. For medication?Tylenol 325 mg every 6 hourly, [place] 5 mg every 6 hourly. We will try to avoid oversedation. Status: Acute (3) Status post total right knee replacement not using cement: Status: Acute (4) Essential (primary) hypertension: Goal blood pressure less than 140/90 mmHg with mean over 65. Hold off on propranolol given soft blood pressures overnight. Status: Chronic (5) Atrial fibrillation with RVR: Status: Resolved (6) Chronic anticoagulation: Full dose Lovenox at 1 mg/kg body weight every 12 hourly as per creatinine clearance. Switching to NOAC as an outpatient. Preferably Xarelto as it is cheaper from [address] plan for the patient. Status: Acute (7) COPD (chronic obstructive pulmonary disease): Status: Acute (8) Cardiac arrest with successful resuscitation: Status: Acute Plan Analgesia: Tylenol 325 mg every 6 hourly as needed, [place] 5 mg every 6 hourly as needed. Glycemic control: Not needed Nutrition: Cardiac diet CODE STATUS: Full code PUD prophylaxis: Protonix DVT prophylaxis: Full dose Lovenox will suffice for DVT prophylaxis Discharge planning: Given the events of cardiac arrest during hospitalization, knee surgery patient most likely she would need discharge to SNF but is reluctant for SNF placement. Agreeable to follow-up with outpatient PT. Continue with care at ICU level. Attestations Medical Necessity Statement*: Requires further hospitalization for management of postcardiac arrest with successful resuscitation secondary to ventricular tachycardia requiring cardiac angiogram to rule out ischemic etiology in a patient who underwent knee replacement Time Spent in Patient Care: Greater than 35 minutes Coding Level of Care Code Acute River Boat Captain for Daron Fwd Diagnoses Cardiac arrest with ventricular fibrillation I46.9; I49.01 Encounter for postoperative care Z48.89 Status post total right knee replacement not using cement Z96.651 Essential (primary) hypertension I10 Atrial fibrillation with RVR I48.91 Chronic anticoagulation Z79.01 COPD (chronic obstructive pulmonary disease) J44.9 Cardiac arrest with successful resuscitation I46.9
[2021-10-05] MEDS: pantoprazole 40 mg SDV IVP (14:19)
[2021-10-05] MEDS: sennosides-docusate Tablet 2 TAB PO (16:17)
[2021-10-05] MEDS: calcium carbonate 500 mg Chew Tablet 1000 MG PO (16:17)
[2021-10-05] MEDS: iron polysaccharide complex 150 mg Capsule PO (16:19)
[2021-10-05] MEDS: chlorhexidine gluconate 0.12% Btl 473 mL 30 ML MUCOUS MEM ×2 (16:26→21:31)
--- NOTE | 2021-10-05 23:37 | ECG_ITS ---
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 Measurements Intervals [place] Rate: 130 P: PA: QRS: 24 QRSD: 146 T: 12 QT: 316 QTc: 465 Interpretive Statements ATRIAL FIBRILLATION WITH RAPID VENTRICULAR RESPONSE WITH ABERRANT CONDUCTION OR VENTRICULAR PREMATURE COMPLEXES RIGHT BUNDLE BRANCH BLOCK [120+ ms QRS DURATION, UPRIGHT V1, 40+ ms S IN I/aVL/V4/V5/V6] Compared to ECG 10/03/2021 10:55:58 Ventricular premature complex(es) now present Aberrant conduction of supraventricular beat(s) now present Indeterminate axis no longer present Electronically Signed On 10-06-2021 11:57:19 CDT by Jenaro Rushing M.D. [email or web address]
--- NOTE | 2021-10-05 23:40 | PC.NURSE ---
New Orders Received Patient HR noted to be in the 150's and sustaining. Informed Dr. Palma of change in HR, she gave verbal orders for 12 lead EKG.
[2021-10-06] VITALS (46 sets, daily range): BP systolic 79–157; BP diastolic 50–80; PULSE 61–148; RESP 16–30; TEMP 36.6–37.1; O2SAT 79–100; BMI 25.6
[2021-10-06] MEDS: metoprolol tartrate 1 mg/1 mL SDV 5 mL 5 MG IVP (00:03)
[2021-10-06] MEDS: enoxaparin 80 mg/0.8 mL Syringe SUBCUT ×2 (00:03→12:48)
--- NOTE | 2021-10-06 01:45 | PC.NURSE ---
Low MAP Patient MAP noted to be 60, informed Dr. Palma who gave orders for a 250 ml bolus of NS.
[2021-10-06] MEDS: sodium chloride 0.9% 250 ML IV ×2 (01:58→03:03)
[2021-10-06] MEDS: acetaminophen 325 mg Tablet PO (01:58)
--- NOTE | 2021-10-06 02:47 | PC.NURSE ---
New Orders Received HR noted to be in the 120-130's remaining in a-fib, BP 88/55. Notified Dr. Palma who gave orders for another 250 IV fluid bolus. Also gave new orders to start Amiodarone gtt.
[2021-10-06 05:00] LABS: Alanine Aminotransferase 16 U/L (0-41); Albumin Level 2.4 g/dL (3.5-5.2); Alkaline Phosphatase 69 IU/L (40-130); Anion Gap 11.6 (5-19); Aspartate Amino Transferase 23 U/L (0-40); Blood Urea Nitrogen 19 mg/dL (8-23); Calcium 7.6 mg/dL (8.5-10.5); Carbon Dioxide 22 mmol/L (22-29); Chloride 106 mmol/L (98-107); Globulin 2.7 g/dL (1.3-4.6); Glucose 107 mg/dL (65-115); Magnesium 1.9 mg/dL (1.7-2.3); Osmolality Calculated 285 mOsm/kg (285-295); Potassium 3.6 mmol/L (3.5-5.1); Sodium 136 mmol/L (136-145); Total Bilirubin 0.6 mg/dL (0.15-1.2); Total Protein 5.1 g/dL (6.6-8.7)
--- NOTE | 2021-10-06 05:09 | PC.NURSE ---
Shift Summary Patient had an eventful shift, please see previous notes for details. He remains alert & oriented x4, on 3LNC. Right knee dressing dry/intact no other wounds or skin issues noted at this time. Amiodarone infusing per protocol please see MAR for infusion rate. Raymundo catheter drained 300 mls of urine overnight.
[2021-10-06 05:19] LABS: Basophils % 0.3 %; Eosinophils # 0.1 10^3/uL (0.0-0.8); Eosinophils % 1.5 %; Hematocrit 26.5 % (42.0-52.0); Hemoglobin 8.3 g/dL (11.7-16.6); Lymphocytes % 13.5 %; Mean Corpuscular HGB Conc 31.3 g/dL (30.0-36.0); Mean Corpuscular Hemoglobin 30.9 pg (28.0-34.0); Mean Corpuscular Volume 98.5 fl (80-94); Mean Platelet Volume 11.6 fL (7.4-10.4); Monocytes # 1.2 10^3/uL (0.2-0.9); Monocytes % 16.4 %; Neutrophils # 5.09 10^3/uL (1.8-7.7); Neutrophils % 67.9 %; Nucleated Red Blood Cells % 0 %; Platelet Count 177 10^3/cmm (130-400); Red Blood Count 2.69 10^6/uL (4.1-5.3); Red Cell Distribution Width 13.4 % (12.1-15.1); White Blood Count 7.5 10^3/uL (4.0-10.0)
--- NOTE | 2021-10-06 06:55 | P.PN_ITS ---
Subjective Subjective: Angiography yesterday revealed nonobstructive coronary artery disease. He has a left dominant system. His left ventricular function is lower limit of normal. He went into atrial fibrillation overnight and is now on an amiodarone drip. Otherwise, he is doing well. Vitals/I&O/Wt Last Vital Signs Temp 98.0 F 10/06/21 04:00 Pulse 115 H 10/06/21 06:00 Resp 18 10/06/21 06:00 BP 99/62 10/06/21 06:00 Pulse Ox 99 10/06/21 06:00 O2 Del Method 10/06/21 04:00 O2 Flow Rate 3 10/06/21 04:00 FiO2 30 10/05/21 16:00 10/05/21 10/05/21 10/06/21 14:59 22:59 06:59 Intake Total 1539.167 / 1539.167 250 / 1778.515 0791 / 2889.167 Output Total 875 / 875 350 / 1225 300 / 1525 Balance 664.167 / 664.167 -100 / 564.167 800 / 1364.167 Weight last 48 hrs Weight 194 lb Physical Exam Narrative: GENERAL: In general he is awake and alert HEENT: Exam within normal limits. NECK: Supple without jugular vein distention. The carotid upstroke is normal without bruits. BACK: Exam normal. LUNGS: Clear. HEART: Irregularly irregular rhythm ABDOMEN: Benign without organomegaly or tenderness. EXTREMITIES: No edema. NEUROLOGIC: Exam normal. SKIN: Unremarkable. Urinary Catheter Management: Raymundo: Cath Placed During This Visit: yes Reason for Continuing Indwelling Catheter: Accurate Measurement of Urinary Output in Critically Ill Patients Urinary Catheter Date of Insertion: 10/02/21 Urinary Catheter Time of Insertion: 07:20 Data : 10/06/21 03:30 10/06/21 03:30 A&P Assessment and plan (1) COPD (chronic obstructive pulmonary disease): Status: Acute (2) Chronic anticoagulation: Status: Acute (3) AF (paroxysmal atrial fibrillation): Status: Acute (4) Status post total right knee replacement not using cement: Status: Acute (5) Essential (primary) hypertension: Status: Chronic Plan We will continue the IV amiodarone. If he does not convert we can cardiovert him. He remains on a factor Xa inhibitor. He can participate in rehab for his knee at any level. I am not convinced he had a true cardiac arrest since we did not have an initial rhythm and he was awake and alert fairly quickly without much intervention. 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
[2021-10-06] MEDS: budesonide 0.5 mg/2 mL Neb INHALATION (08:00)
[2021-10-06] MEDS: ipratropium-albuterol 3 mL Neb INHALATION (08:00)
[2021-10-06] MEDS: calcium carbonate 500 mg Chew Tablet 1000 MG PO ×2 (08:37→17:38)
[2021-10-06] MEDS: primidone 50 mg Tablet PO ×2 (08:37→17:39)
[2021-10-06] MEDS: sennosides-docusate Tablet 2 TAB PO ×2 (08:37→17:38)
[2021-10-06] MEDS: multivitamin therapeutic Tablet 1 TAB PO (08:37)
[2021-10-06] MEDS: chlorhexidine gluconate 0.12% Btl 473 mL 30 ML MUCOUS MEM ×3 (08:37→20:00)
[2021-10-06] MEDS: cholecalciferol (vitamin D3) 1,000 unit Tablet 1000 UNIT PO (08:37)
[2021-10-06] MEDS: mupirocin oint 22 gm 1 APPLIC NASAL ×2 (08:38→17:39)
[2021-10-06] MEDS: iron polysaccharide complex 150 mg Capsule PO ×2 (08:41→17:40)
[2021-10-06] MEDS: amiodarone 200 mg Tablet PO ×2 (08:41→17:38)
[2021-10-06] MEDS: metoprolol tartrate 25 mg Tablet 12.5 MG PO ×2 (08:41→20:04)
[2021-10-06] MEDS: sodium chloride 0.9% 1,000 ML 10 ML IV (09:25)
[2021-10-06] MEDS: digoxin 250 mcg/ml INJ 2 mL 500 MCG IVP (10:02)
[2021-10-06] MEDS: levalbuterol 0.63 mg/3 mL Neb INHALATION ×2 (11:30→20:15)
[2021-10-06] MEDS: pantoprazole 40 mg SDV IVP ×2 (12:47→17:38)
--- NOTE | 2021-10-06 13:21 | PC.SOCIAL ---
IMM update IMM updated with patient. Verbalized an understanding. Copy Pg 2 provided. Initialled, dated, timed, and placed in chart.
[2021-10-06] MEDS: fentaNYL 12 mcg Patch 1 PATCH TRANSDERMA (14:17)
--- NOTE | 2021-10-06 16:07 | P.PN_ITS ---
Subjective Subjective: Overnight patient went into A. fib with RVR for which she was started on amiodarone drip after receiving 1 dose of IV metoprolol. Today morning on examination heart rate better controlled but running from 110s to 120 bpm. During the day patient's heart rate better controlled after receiving 1 dose of IV digoxin 500 mcg. Amiodarone drip weaned off to 0.5. Complaining of chest pain on taking deep breath secondary to recent chest compressions. Denies any nausea, vomiting, headache. Otherwise has remained hemodynamically stable and afebrile. Saturating more than 95% on 4 L. Medications: Reviewed: Yes Vitals/I&O/Wt Last Vital Signs Temp 97.9 F 10/06/21 15:00 Pulse 82 10/06/21 15:45 Resp 22 H 10/06/21 15:45 BP 126/66 10/06/21 15:45 Pulse Ox 97 10/06/21 15:45 O2 Del Method 10/06/21 11:38 O2 Flow Rate 4 10/06/21 11:38 FiO2 30 10/05/21 16:00 10/06/21 10/06/21 10/06/21 06:59 14:59 22:59 Intake Total 1100 / 2889.167 2854.303 / 2854.303 Output Total 300 / 1525 Balance 800 / 6015.395 3920.303 / 2854.303 Weight last 48 hrs Weight 87.997 kg Weight 87.997 kg Physical Exam Narrative: EXAM NARRATIVE: General: No acute distress, AO x3, NC oxygen supplementation HEENT: PERRLA, pupils bilaterally equal and reactive Chest:Bronchial breath sounds b/l ,decreased air entry bilaterally, fine crackles bilaterally in lower CVS: S1-S2 irregularly irregular, no murmurs, no tachycardia, no gallops, no rubs Abdomen: Soft, nontender, no organomegaly, bowel sounds present, morbidly obese Neuro: No focal deficits, no facial deformity, AO x3, power 5/5 in all limbs Urinary Catheter Management: Raymundo: Cath Placed During This Visit: yes Reason for Continuing Indwelling Catheter: Accurate Measurement of Urinary Output in Critically Ill Patients Urinary Catheter Date of Insertion: 10/02/21 Urinary Catheter Time of Insertion: 07:20 Data : 10/06/21 03:30 10/06/21 03:30 A&P Assessment and plan (1) Cardiac arrest with ventricular fibrillation: Ventricular tachycardia cardiac arrest. Achieved ROSC after 1 cycle of ACLS protocol CPR. Post ROSC patient GCS E4 M5V 6. Appreciate CTA, CT head, echocardiogram, lower limb Doppler results. Appreciate Lexiscan stress test result and cardiology recommendations. Minimal CAD on cardiac angiogram done on 10/05. Plan for medical management Patient denies any active chest pain. Keep magnesium around 2, potassium around 4. Amiodarone at 200 mg twice daily. Maintain blood pressure over 65. Patient overall net negative. Stop IV fluids Keep saturation over 88%. Stop antibiotics as patient has remained hemodynamically stable, afebrile without leukocytosis. DuoNebs every 6 hour, budesonide twice daily. Continue with Lovenox at 1 mg/kg body weight every 12 hourly. Discussed with patient regarding NOAC versus warfarin as an outpatient. He states he was not on NOAC because of financial constraints. We discussed regarding [facility] and financial plan. Patient states if he is able to get medication for cheaper [place] he will be more than happy to be on NOAC. Discussed with case management. Patient will be able to get Xarelto. Patient is agreeable. Plan to discharge patient on Xarelto. Will stop Lovenox and warfarin on discharge. Status: Acute (2) Encounter for postoperative care: Postoperative day 4. Physical therapy as per orthopedic team. For medication?Tylenol 325 mg every 6 hourly, [place] 5 mg every 6 hourly. We will try to avoid oversedation. Status: Acute (3) Status post total right knee replacement not using cement: Status: Acute (4) Essential (primary) hypertension: Goal blood pressure less than 140/90 mmHg with mean over 65. Hold off on propranolol given soft blood pressures overnight. Status: Chronic (5) Atrial fibrillation with RVR: Episode of rapid ventricular response overnight. Continue with amiodarone drip. Stop if heart rate goes below 70. Given 1 dose of 500 mcg of digoxin. Metoprolol 12.5 mg twice daily. Will uptitrate after blood pressures. Status: Resolved (6) Chronic anticoagulation: Full dose Lovenox at 1 mg/kg body weight every 12 hourly as per creatinine clearance. Switching to NOAC as an outpatient. Preferably Xarelto as it is cheaper from [facility] plan for the patient. Status: Acute (7) COPD (chronic obstructive pulmonary disease): Status: Acute (8) Cardiac arrest with successful resuscitation: Status: Acute Plan Anemia: Hemoglobin trending down. No active sign of bleeding. No melena. Most likely patient equilibrium for surgery with IV fluids. Transfuse unit of blood. Monitor hemoglobin daily. Protonix 40 mg IV twice daily. Carafate before meals and at bedtime. Analgesia: Tylenol 325 mg every 6 hourly as needed, [place] 5 mg every 6 hourly as needed. Glycemic control: Not needed Nutrition: Cardiac diet CODE STATUS: Full code PUD prophylaxis: Protonix DVT prophylaxis: Full dose Lovenox will suffice for DVT prophylaxis Discharge planning: Given the events of cardiac arrest during hospitalization, knee surgery patient most likely she would need discharge to SNF but is reluctant for SNF placement. Today patient and family is agreeable to go to SNF. He states he would be happy to go to [facility]. Case management alerted. Continue with care at ICU level. Attestations Medical Necessity Statement*: Patient requires further hospitalization for atrial fibrillation with rapid ventricular response, cardiac arrest with successful resuscitation the patient who is post knee transplant while safe discharge planning is sought Time Spent in Patient Care: Greater than 35 minutes Coding Level of Care Code Acute Admittance Attendant for Daron Fwd Diagnoses Cardiac arrest with ventricular fibrillation I46.9; I49.01 Encounter for postoperative care Z48.89 Status post total right knee replacement not using cement Z96.651 Essential (primary) hypertension I10 Atrial fibrillation with RVR I48.91 Chronic anticoagulation Z79.01 COPD (chronic obstructive pulmonary disease) J44.9 Cardiac arrest with successful resuscitation I46.9
[2021-10-06] MEDS: FUROsemide 10 mg/mL SDV 4mL 40 MG IVP (17:38)
[2021-10-06] MEDS: sucralfate 1 gm/10 mL Oral Liq UDC PO ×2 (17:41→20:04)
[2021-10-07] VITALS (28 sets, daily range): BP systolic 108–179; BP diastolic 51–81; PULSE 68–94; RESP 16–30; TEMP 37.1–37.5; O2SAT 86–100; BMI 26.2
[2021-10-07] MEDS: enoxaparin 80 mg/0.8 mL Syringe SUBCUT ×2 (00:05→14:28)
[2021-10-07 04:39] LABS: Digoxin 0.7 ng/mL (0.6-1.2)
[2021-10-07 04:40] LABS: Alanine Aminotransferase 22 U/L (0-41); Albumin Level 2.3 g/dL (3.5-5.2); Alkaline Phosphatase 63 IU/L (40-130); Anion Gap 12.4 (5-19); Aspartate Amino Transferase 26 U/L (0-40); Blood Urea Nitrogen 18 mg/dL (8-23); Calcium 7.7 mg/dL (8.5-10.5); Carbon Dioxide 22 mmol/L (22-29); Chloride 105 mmol/L (98-107); Chol HDL Ratio 4.11 mg/dL (1.0-5.00); Cholesterol 111 mg/dL (0-200); Globulin 2.6 g/dL (1.3-4.6); Glucose 104 mg/dL (65-115); HDL Cholesterol 27 mg/dL (60-100); LDL Cholesterol Calculated 71 mg/dL (50-129); Osmolality Calculated 284 mOsm/kg (285-295); Potassium 3.4 mmol/L (3.5-5.1); Sodium 136 mmol/L (136-145); Total Bilirubin 0.6 mg/dL (0.15-1.2); Total Protein 4.9 g/dL (6.6-8.7); Triglycerides 63 mg/dL (0-150); VLDL Cholestrol Calculation 13 mg/dL (0-30)
--- NOTE | 2021-10-07 05:19 | PC.NURSE ---
Shift Summary Patient had an uneventful shift, remains alert/oriented x4 on 3L oxygen via oxymask. Surgical incision noted to right knee, covered with dressing-no other wounds or skin issues noted at this time. Patient denies reports of pain overnight. Raymundo catheter drained 1400 mls of urine overnight.
[2021-10-07 05:23] LABS: Estmated Average Glucose 97
[2021-10-07 06:00] LABS: Basophils % 0.3 %; Eosinophils # 0.2 10^3/uL (0.0-0.8); Eosinophils % 2.4 %; Hematocrit 25.2 % (42.0-52.0); Hemoglobin 8.5 g/dL (11.7-16.6); Lymphocytes % 13.2 %; Mean Corpuscular HGB Conc 33.7 g/dL (30.0-36.0); Mean Corpuscular Hemoglobin 32.4 pg (28.0-34.0); Mean Corpuscular Volume 96.2 fl (80-94); Monocytes # 1.4 10^3/uL (0.2-0.9); Monocytes % 18.7 %; Neutrophils # 4.87 10^3/uL (1.8-7.7); Neutrophils % 64.9 %; Nucleated Red Blood Cells % 0 %; Platelet Count 172 10^3/cmm (130-400); Red Blood Count 2.62 10^6/uL (4.1-5.3); Red Cell Distribution Width 14.1 % (12.1-15.1); White Blood Count 7.5 10^3/uL (4.0-10.0)
[2021-10-07] MEDS: sucralfate 1 gm/10 mL Oral Liq UDC PO ×4 (06:39→21:08)
[2021-10-07] MEDS: levalbuterol 0.63 mg/3 mL Neb INHALATION (07:54)
--- NOTE | 2021-10-07 08:00 | PM.PN ---
Subjective Subjective: Krishna is improved this morning. He went back into sinus rhythm last evening. The IV amiodarone is off. He is still on Lovenox but the plan is to transition him to a factor Xa inhibitor. He feels better this morning. He has an appetite. The oxygen mask is on his head and his oxygen saturation is 92%. No chest pains. The entry site for his angiogram of the right wrist is unremarkable with a good pulse. Vitals/I&O/Wt Last Vital Signs Temp 99.2 F 10/07/21 00:00 Pulse 69 10/07/21 06:00 Resp 19 H 10/07/21 06:00 BP 113/59 10/07/21 06:00 Pulse Ox 98 10/07/21 06:00 O2 Del Method 10/07/21 04:00 O2 Flow Rate 3 10/07/21 04:00 FiO2 30 10/05/21 16:00 10/06/21 10/07/21 10/07/21 22:59 06:59 14:59 Intake Total 556.089 / 3410.392 650 / 4060.392 Output Total 400 / 400 1400 / 1800 Balance 156.089 / 3010.392 -750 / 2260.392 Weight last 48 hrs Weight 198 lb 6 oz Weight 194 lb Physical Exam Narrative: GENERAL: In general he looks and feels well HEENT: Exam within normal limits. NECK: Supple without jugular vein distention. The carotid upstroke is normal without bruits. BACK: Exam normal. LUNGS: Clear. HEART: Regular rate and rhythm. ABDOMEN: Benign without organomegaly or tenderness. EXTREMITIES: No edema. NEUROLOGIC: Exam normal. SKIN: Unremarkable. Urinary Catheter Management: Raymundo: Cath Placed During This Visit: yes Reason for Continuing Indwelling Catheter: Accurate Measurement of Urinary Output in Critically Ill Patients Urinary Catheter Date of Insertion: 10/02/21 Urinary Catheter Time of Insertion: 07:20 Data : 10/07/21 02:55 10/07/21 02:55 A&P Assessment and plan (1) COPD (chronic obstructive pulmonary disease): Status: Acute (2) Chronic anticoagulation: Status: Acute (3) AF (paroxysmal atrial fibrillation): Status: Acute (4) Status post total right knee replacement not using cement: Status: Acute (5) Essential (primary) hypertension: Status: Chronic Plan He could transition over to a anticoagulant by mouth at any time. He should go home on amiodarone 200 mg twice daily for 1 week and then drop back to 200 mg once daily. His other medicines including the beta-verónica and KWASI inhibitor should remain the same. He should also go home on low-dose aspirin 81 mg daily. Attestations Medical Necessity Statement*: Hospitalization for post knee replacement episode of unresponsiveness. Should be able to go home soon. Coding Level of Care Code Established Pt Acute Resort Keeper for Daron Pina Patient Type Established History Detailed Exam Detailed Medical Decision Making Moderate Complexity Diagnoses COPD (chronic obstructive pulmonary disease) J44.9 Chronic anticoagulation Z79.01 AF (paroxysmal atrial fibrillation) I48.0 Status post total right knee replacement not using cement Z96.651 Essential (primary) hypertension I10
[2021-10-07] MEDS: calcium carbonate 500 mg Chew Tablet 1000 MG PO ×2 (08:02→21:07)
[2021-10-07] MEDS: cholecalciferol (vitamin D3) 1,000 unit Tablet 1000 UNIT PO (08:02)
[2021-10-07] MEDS: multivitamin therapeutic Tablet 1 TAB PO (08:03)
[2021-10-07] MEDS: primidone 50 mg Tablet PO ×2 (08:03→17:47)
[2021-10-07] MEDS: amiodarone 200 mg Tablet PO ×2 (08:03→17:47)
[2021-10-07] MEDS: sennosides-docusate Tablet 2 TAB PO ×2 (08:03→17:46)
[2021-10-07] MEDS: pantoprazole 40 mg SDV IVP ×2 (08:03→17:49)
[2021-10-07] MEDS: mupirocin oint 22 gm 1 APPLIC NASAL (08:03)
[2021-10-07] MEDS: iron polysaccharide complex 150 mg Capsule PO ×2 (08:05→17:47)
[2021-10-07] MEDS: metoprolol tartrate 25 mg Tablet 12.5 MG PO ×2 (08:05→21:08)
--- NOTE | 2021-10-07 14:01 | PM.PN ---
Subjective Subjective: No acute events overnight. States he is feeling better. Sitting up in bed. Has remained in normal sinus rhythm since yesterday afternoon. Amiodarone drip stopped yesterday evening. Denies any nausea, vomiting, headache. Working with physical therapy. Medications: Reviewed: Yes Vitals/I&O/Wt Last Vital Signs Temp 99.2 F 10/07/21 00:00 Pulse 77 10/07/21 13:00 Resp 19 H 10/07/21 13:00 BP 113/51 10/07/21 13:00 Pulse Ox 100 10/07/21 13:00 O2 Del Method 10/07/21 08:31 O2 Flow Rate 4 10/07/21 08:31 FiO2 30 10/05/21 16:00 10/06/21 10/07/21 10/07/21 22:59 06:59 14:59 Intake Total 556.089 / 3410.392 650 / 4060.392 550 / 550 Output Total 400 / 400 1400 / 1800 Balance 156.089 / 3010.392 -750 / 2260.392 550 / 550 Weight last 48 hrs Weight 89.981 kg Weight 87.997 kg Physical Exam Narrative: EXAM NARRATIVE: General: No acute distress, AO x3, NC oxygen supplementation HEENT: PERRLA, pupils bilaterally equal and reactive Chest:Bronchial breath sounds b/l ,decreased air entry bilaterally, fine crackles bilaterally in lower CVS: S1-S2 irregularly irregular, no murmurs, no tachycardia, no gallops, no rubs Abdomen: Soft, nontender, no organomegaly, bowel sounds present, morbidly obese Neuro: No focal deficits, no facial deformity, AO x3, power 5/5 in all limbs Urinary Catheter Management: Raymundo: Cath Placed During This Visit: yes Reason for Continuing Indwelling Catheter: Accurate Measurement of Urinary Output in Critically Ill Patients Urinary Catheter Date of Insertion: 10/02/21 Urinary Catheter Time of Insertion: 07:20 Data : 10/07/21 02:55 10/07/21 02:55 A&P Assessment and plan (1) Cardiac arrest with ventricular fibrillation: Ventricular tachycardia cardiac arrest. Achieved ROSC after 1 cycle of ACLS protocol CPR. Post ROSC patient GCS E4 M5V 6. Appreciate CTA, CT head, echocardiogram, lower limb Doppler results. Appreciate Lexiscan stress test result and cardiology recommendations. Minimal CAD on cardiac angiogram done on 10/05. Plan for medical management Patient denies any active chest pain. Keep magnesium around 2, potassium around 4. Amiodarone at 200 mg twice daily. Maintain blood pressure over 65. Keep saturation over 88%. Has remained hemodynamically stable and afebrile without leukocytosis off antibiotics. DuoNebs every 6 hour, budesonide twice daily. Continue with Lovenox at 1 mg/kg body weight every 12 hourly. Discussed with patient regarding NOAC versus warfarin as an outpatient. He states he was not on NOAC because of financial constraints. We discussed regarding [address] [facility] and financial plan. Patient states if he is able to get medication for cheaper [place] he will be more than happy to be on NOAC. Discussed with case management. Patient will be able to get Xarelto. Patient is agreeable. Plan to discharge patient on Xarelto. Will stop Lovenox and warfarin on discharge. Status: Acute (2) Encounter for postoperative care: Postoperative day5. Physical therapy as per orthopedic team. For medication?Tylenol 325 mg every 6 hourly, [place] 5 mg every 6 hourly. We will try to avoid oversedation. Status: Acute (3) Status post total right knee replacement not using cement: Status: Acute (4) Essential (primary) hypertension: Goal blood pressure less than 140/90 mmHg with mean over 65. Hold off on propranolol given soft blood pressures overnight. Status: Chronic (5) Atrial fibrillation with RVR: Continue with oral amiodarone, metoprolol 12.5 mg twice daily. Continue with full dose Lovenox. Plan to discharge on Xarelto. Status: Resolved (6) Chronic anticoagulation: Full dose Lovenox at 1 mg/kg body weight every 12 hourly as per creatinine clearance. Switching to NOAC as an outpatient. Preferably Xarelto as it is cheaper from [address] plan for the patient. Status: Acute (7) COPD (chronic obstructive pulmonary disease): Status: Acute (8) Cardiac arrest with successful resuscitation: Status: Acute Plan Anemia: Post monitor blood transfusion. Hemoglobin stable. We will continue to monitor BC daily for now. Protonix 40 mg IV twice daily. Carafate before meals and at bedtime. Analgesia: Tylenol 325 mg every 6 hourly as needed, [place] 5 mg every 6 hourly as needed. Glycemic control: Not needed Nutrition: Cardiac diet CODE STATUS: Full code PUD prophylaxis: Protonix DVT prophylaxis: Full dose Lovenox will suffice for DVT prophylaxis Discharge planning: Given the events of cardiac arrest during hospitalization, knee surgery patient most likely she would need discharge to SNF. Patient has finally reluctantly agreed to go to SNF. Case management alerted. Transfer to cardiac stepdown unit. Attestations Medical Necessity Statement*: Requires further hospitalization for post cardiac arrest resuscitation in a patient with recent knee surgery while safe discharge planning is sought Time Spent in Patient Care: Greater than 35 minutes Coding Level of Care Code Acute Butcher All Round for [facility] Fwd Diagnoses Cardiac arrest with ventricular fibrillation I46.9; I49.01 Encounter for postoperative care Z48.89 Status post total right knee replacement not using cement Z96.651 Essential (primary) hypertension I10 Atrial fibrillation with RVR I48.91 Chronic anticoagulation Z79.01 COPD (chronic obstructive pulmonary disease) J44.9 Cardiac arrest with successful resuscitation I46.9
--- NOTE | 2021-10-07 16:16 | PC.NURSE ---
report called transfered to [id number]
--- NOTE | 2021-10-07 16:30 | PC.NURSE ---
received pt from ICU oriented pt to his room. pt is alert and orientedx4. call light provided. pt on oxymask at 3 L. pt has a ice pack on right knee. pt had a right terra surgery post op. CPM at bedside. ba catheter draining well.
[2021-10-07] MEDS: HYDROcodone-acetaminophen 5-325 mg Tablet 1 TAB PO (17:47)
[2021-10-07] MEDS: chlorhexidine gluconate 0.12% Btl 473 mL 30 ML MUCOUS MEM (21:08)
[2021-10-08] VITALS (18 sets, daily range): BP systolic 106–179; BP diastolic 49–81; PULSE 61–87; RESP 16–28; TEMP 36.7–38.3; O2SAT 90–99
[2021-10-08] MEDS: enoxaparin 80 mg/0.8 mL Syringe SUBCUT ×2 (00:41→13:56)
[2021-10-08 04:15] LABS: Basophils % 0.3 %; Eosinophils # 0.3 10^3/uL (0.0-0.8); Eosinophils % 3.7 %; Hematocrit 26.5 % (42.0-52.0); Hemoglobin 8.4 g/dL (11.7-16.6); Lymphocytes # 1.2 10^3/uL (0.8-4.8); Lymphocytes % 16.2 %; Mean Corpuscular HGB Conc 31.7 g/dL (30.0-36.0); Mean Corpuscular Hemoglobin 30.8 pg (28.0-34.0); Mean Corpuscular Volume 97.1 fl (80-94); Mean Platelet Volume 10.6 fL (7.4-10.4); Monocytes # 1.2 10^3/uL (0.2-0.9); Monocytes % 16.7 %; Neutrophils # 4.61 10^3/uL (1.8-7.7); Neutrophils % 62.7 %; Nucleated Red Blood Cells % 0 %; Platelet Count 204 10^3/cmm (130-400); Red Blood Count 2.73 10^6/uL (4.1-5.3); Red Cell Distribution Width 13.8 % (12.1-15.1); White Blood Count 7.4 10^3/uL (4.0-10.0)
[2021-10-08 04:52] LABS: Alanine Aminotransferase 33 U/L (0-41); Albumin Level 2.2 g/dL (3.5-5.2); Alkaline Phosphatase 69 IU/L (40-130); Anion Gap 10.7 (5-19); Aspartate Amino Transferase 32 U/L (0-40); Blood Urea Nitrogen 13 mg/dL (8-23); Calcium 7.7 mg/dL (8.5-10.5); Carbon Dioxide 25 mmol/L (22-29); Chloride 104 mmol/L (98-107); Globulin 2.6 g/dL (1.3-4.6); Glucose 106 mg/dL (65-115); Osmolality Calculated 283 mOsm/kg (285-295); Potassium 3.7 mmol/L (3.5-5.1); Sodium 136 mmol/L (136-145); Total Bilirubin 0.6 mg/dL (0.15-1.2); Total Protein 4.8 g/dL (6.6-8.7)
[2021-10-08] MEDS: sucralfate 1 gm/10 mL Oral Liq UDC PO ×4 (06:45→20:36)
[2021-10-08] MEDS: cholecalciferol (vitamin D3) 1,000 unit Tablet 1000 UNIT PO (08:01)
[2021-10-08] MEDS: metoprolol tartrate 25 mg Tablet 12.5 MG PO ×2 (08:01→20:36)
[2021-10-08] MEDS: sennosides-docusate Tablet 2 TAB PO (08:01)
[2021-10-08] MEDS: iron polysaccharide complex 150 mg Capsule PO ×2 (08:01→17:46)
[2021-10-08] MEDS: amiodarone 200 mg Tablet PO ×2 (08:02→17:46)
[2021-10-08] MEDS: calcium carbonate 500 mg Chew Tablet 1000 MG PO ×2 (08:02→17:46)
[2021-10-08] MEDS: multivitamin therapeutic Tablet 1 TAB PO (08:02)
[2021-10-08] MEDS: chlorhexidine gluconate 0.12% Btl 473 mL 30 ML MUCOUS MEM ×4 (08:03→20:37)
[2021-10-08] MEDS: pantoprazole 40 mg SDV IVP ×2 (08:06→17:34)
[2021-10-08] MEDS: primidone 50 mg Tablet PO ×2 (08:10→17:46)
[2021-10-08] MEDS: levalbuterol 0.63 mg/3 mL Neb INHALATION (09:09)
[2021-10-08] MEDS: HYDROcodone-acetaminophen 5-325 mg Tablet 1 TAB PO (09:16)
--- NOTE | 2021-10-08 09:37 | PC.SOCIAL ---
IMM update IMM updated with patient. Verbalized an understanding. Copy Pg 2 provided. Initialled, dated, timed, and placed in chart.
--- NOTE | 2021-10-08 10:29 | PM.PN ---
Subjective Subjective: Patient went into A. fib over the weekend and has converted to NSR He feels well overall. Medications: Reviewed: Yes Vitals/I&O/Wt Last Vital Signs Temp 98.2 F 10/08/21 08:00 Pulse 70 10/08/21 09:18 Resp 17 10/08/21 09:13 BP 139/63 10/08/21 08:00 Pulse Ox 95 10/08/21 09:13 O2 Del Method 10/08/21 09:13 O2 Flow Rate 3 10/08/21 09:13 FiO2 30 10/05/21 16:00 10/07/21 10/08/21 10/08/21 22:59 06:59 14:59 Intake Total 480 / 1030 118 / 118 Output Total 925 / 925 Balance 480 / 1030 -925 / 105 118 / 118 Weight last 48 hrs Weight 204 lb 6 oz Weight 198 lb 6 oz Physical Exam Narrative: Gen: pleasant elderly man sitting in bed, NAD, currently saturating well on 3 L O2 via NC HEENT/Neck:No JVD RS: DEcreased AEB/L, No wheezes or rales CVS: S1, S2 regular, No murmur, rub or gallop BASKET MAKER: AAOx 3, No FND PA: soft, NTND, BS2+ Ext: trace R LE edema, right LE dressing in place. Psych: normal mood and appropriate affect Urinary Catheter Management: Raymundo: Cath Placed During This Visit: yes Reason for Continuing Indwelling Catheter: Acute Urinary Retention or Obstruction Urinary Catheter Date of Insertion: 10/02/21 Urinary Catheter Time of Insertion: 07:20 Data : 10/08/21 04:00 10/08/21 04:00 A&P Assessment and plan (1) Cardiac arrest with successful resuscitation: Reported to be VT arrest per code team. -No tele/defib strips available for review. -Stress test with small sized perfusion abnormality of mild severity of basal to mid?inferolateral and mid anteroseptal blackmon with reversibility in mid? ?inferolateral and mid inferoseptal blackmon on stress images. This may represent old myocardial infarction in right coronary?artery/circumflex artery territory with mild oseas-infarct ischemia. Reliability of this finding is questionable d/t no prone imaging. -Amiodarone 200 BID x 2 weeks and then 200 mg daily; keep electrolytes in normal range -echo with normal LV function. -No obstructive CAD on [facility] Status: Acute (2) AF (paroxysmal atrial fibrillation): Paroxysmal Atrial fibrillation -patient is back in NSR -on amiodarone, low dose metoprolol and lovenox Status: Acute (3) Status post total right knee replacement not using cement: Status: Acute (4) COPD (chronic obstructive pulmonary disease): Status: Acute (5) Essential tremor: Status: Acute (6) Essential (primary) hypertension: . Status: Chronic Plan COPD Thank you for allowing me to participate in patient's care. Please feel free to call with questions or concerns Attestations Medical Necessity Statement*: awaiting placement Coding Level of Care Code Acute Instrumentation Technologist for [facility] Fwd Diagnoses Cardiac arrest with successful resuscitation I46.9 AF (paroxysmal atrial fibrillation) I48.0 Status post total right knee replacement not using cement Z96.651 COPD (chronic obstructive pulmonary disease) J44.9 Essential tremor G25.0 Essential (primary) hypertension I10
--- NOTE | 2021-10-08 10:41 | PC.NURSE ---
Physician verbal orders: Alessandra Q6 scheduled
[2021-10-08] MEDS: ipratropium-albuterol 3 mL Neb INHALATION ×2 (15:11→19:57)
--- NOTE | 2021-10-08 16:24 | P.PN_ITS ---
Subjective Subjective: Patient was seen and examined this morning. He was slightly short of breath after physical therapy. Currently in sinus rhythm, Medications: Reviewed: Yes Medication Review Details: Generic Name Dose Route Start Last Admin Trade Name Freq PRN Reason Stop Dose Admin Acetaminophen 325 mg 10/04/21 15:58 10/06/21 01:58 Acetaminophen 32 5 Mg Tablet PO 325 mg Q6H PRN Administration MILD PAIN Hydrocodone Bitart /Acetaminophen 1 tab 10/04/21 15:58 10/08/21 09:16 Hydrocodone-Acet aminophen 5-325 Mg Tablet PO 1 tab Q6H PRN Administration MODERATE PAIN Albuterol/Ipratrop ium 3 ml 10/08/21 14:00 10/08/21 15:11 Ipratropium-Albu terol 3 Ml Neb INHALATION 3 ml Q6H.RESP ALEXANDRA Administration Amiodarone HCl 200 mg 10/04/21 18:00 10/08/21 08:02 Amiodarone 200 M g Tablet PO 200 mg BID ALEXANDRA Administration Calcium Carbonate 1,000 mg 10/02/21 18:00 10/08/21 08:02 Calcium Carbonat e 500 Mg Chew Tabl et PO 1,000 mg BID ALEXANDRA Administration Chlorhexidine Gluc maximiliano 30 ml 10/02/21 13:00 10/08/21 13:56 Chlorhexidine Gl uconate 0.12% Btl 473 Ml MUCOUS MEM 30 ml QID ALEXANDRA Administration Denture Adhesive 1 applic 10/05/21 10:24 10/05/21 10:39 Fixodent 39 Gm T ube DENTAL 1 applic PRN PRN Administration denture adhesive Fentanyl 1 patch 10/03/21 12:00 10/06/21 14:17 Fentanyl 12 Mcg Patch TRANSDERMA 1 patch Q72H ALEXANDRA Administration Levalbuterol HCl 0.63 mg 10/03/21 11:27 10/08/21 09:09 Levalbuterol 0.6 3 Mg/3 Ml Neb INHALATION 0.63 mg QID.RESPIRATORY P RN Administration SHORTNESS OF NICOLE TH Metoprolol Tartrat e 12.5 mg 10/06/21 09:00 10/08/21 08:01 Metoprolol Tartr ate 25 Mg Tablet PO 12.5 mg BID@0900,2100 ALEXANDRA Administration Multivitamins Ther apeutic 1 tab 10/03/21 09:00 10/08/21 08:02 Multivitamin The rapeutic Tablet PO 1 tab DAILY ALEXANDRA Administration Pantoprazole Sodiu m 40 mg 10/06/21 18:00 10/08/21 08:06 Pantoprazole 40 Mg Sdv IVP 40 mg BID ALEXANDRA Administration Polysaccharide Iro n Complex 150 mg 10/02/21 18:00 10/08/21 08:01 Iron Polysacchar amara Complex 150 Mg Capsule PO 150 mg BIDWM ALEXANDRA Administration Primidone 50 mg 10/02/21 18:00 10/08/21 08:10 Primidone 50 Mg Tablet PO 50 mg BID ALEXANDRA Administration Fluticasone/Salmet vickey 1 puff 10/06/21 09:40 10/08/21 09:09 Fluticasone-Salm eterol 250-50 Disk us INHALATION 1 puff BID.RESPIRATORY S CH Administration Senna/Docusate Sod ium 2 tab 10/02/21 18:00 10/08/21 08:01 Sennosides-Docus ate Tablet PO 2 tab BID ALEXANDRA Administration Sucralfate 1 gm 10/06/21 17:00 10/08/21 10:55 Sucralfate 1 Gm/ 10 Ml Oral Liq Udc PO 1 gm AC&BEDTIME ALEXANDRA Administration Tiotropium [place] 18 mcg 10/07/21 08:00 10/08/21 09:10 Tiotropium 18 Mc g Mdi INHALATION 1 puff DAILY.RESPIRATORY ALEXANDRA Administration Vitamin D 1,000 unit 10/03/21 09:00 10/08/21 08:01 Cholecalciferol (Vitamin D3) 1,000 Unit Tablet PO 1,000 unit DAILY ALEXANDRA Administration Vitals/I&O/Wt Last Vital Signs Temp 98.0 F 10/08/21 12:00 Pulse 76 10/08/21 15:18 Resp 16 10/08/21 15:12 BP 106/49 10/08/21 12:00 Pulse Ox 99 10/08/21 15:12 O2 Del Method 10/08/21 15:12 O2 Flow Rate 3 10/08/21 15:12 FiO2 30 10/05/21 16:00 10/08/21 10/08/21 10/08/21 06:59 14:59 22:59 Intake Total 236 / 236 Output Total 925 / 925 Balance -925 / 105 236 / 236 Weight last 48 hrs Weight 92.703 kg Weight 89.981 kg Physical Exam Const: COMMON NORMALS: patient oriented x3 HENMT: COMMON NORMALS: normocephalic and atraumatic HEAD & SCALP: normocephalic and atraumatic Resp: OTHER: Minimal expiratory wheezing present bilaterally in both lungs. Cardio: COMMON NORMALS: regular rate, regular rhythm, S1 normal heart sound present, S2 normal heart sound present, No gallops present (Cardio), No murmurs present (Cardio), No rub (Cardio) and Peripheral pulses 2+ throughout RATE: regular rate RHYTHM: regular rhythm HEART SOUNDS: S1 normal heart sound present and S2 normal heart sound present PERIPHERAL PULSES: Peripheral pulses 2+ throughout GI: COMMON NORMALS: Normal to inspection, nondistended, normoactive bowel sounds present, Soft to palpation, non-tender, No hepatosplenomegaly present and no masses AUSCULTATION: Yes normoactive bowel sounds PALPATION: Yes Soft to palpation and Yes No hepatosplenomegaly present RECTAL EXAM: Yes deferred Neuro: COMMON NORMALS: patient oriented x3 Urinary Catheter Management: Raymundo: Cath Placed During This Visit: yes Reason for Continuing Indwelling Catheter: Acute Urinary Retention or Obstruction Urinary Catheter Date of Insertion: 10/02/21 Urinary Catheter Time of Insertion: 07:20 Data : 10/08/21 04:00 10/08/21 04:00 A&P Assessment and plan (1) Cardiac arrest with ventricular fibrillation: Ventricular tachycardia cardiac arrest. Achieved ROSC after 1 cycle of ACLS protocol CPR. Post ROSC patient GCS E4 M5V 6. Appreciate CTA, CT head, echocardiogram, lower limb Doppler results. Appreciate Lexiscan stress test result and cardiology recommendations. Minimal CAD on cardiac angiogram done on 10/05. Plan for medical management Patient denies any active chest pain. Keep magnesium around 2, potassium around 4. Amiodarone at 200 mg twice daily. Maintain blood pressure over 65. Keep saturation over 88%. Has remained hemodynamically stable and afebrile without leukocytosis off antibiotics. DuoNebs every 6 hour, budesonide twice daily. Continue with Lovenox at 1 mg/kg body weight every 12 hourly. Discussed with patient regarding NOAC versus warfarin as an outpatient. He states he was not on NOAC because of financial constraints. We discussed regarding [facility] pharmacy and financial plan. Patient states if he is able to get medication for cheaper [place] he will be more than happy to be on NOAC. Discussed with case management. Patient will be able to get Xarelto. Patient is agreeable. Plan to discharge patient on Xarelto. Will stop Lovenox and warfarin on discharge. Status: Acute (2) Encounter for postoperative care: Postoperative day5. Physical therapy as per orthopedic team. For medication?Tylenol 325 mg every 6 hourly, [place] 5 mg every 6 hourly. We will try to avoid oversedation. Status: Acute (3) Status post total right knee replacement not using cement: Status: Acute (4) Essential (primary) hypertension: Goal blood pressure less than 140/90 mmHg with mean over 65. Hold off on propranolol given soft blood pressures overnight. Status: Chronic (5) Atrial fibrillation with RVR: Continue with oral amiodarone, metoprolol 12.5 mg twice daily. On Eliquis. Will discharge on home oral anticoagulation Status: Resolved (6) Chronic anticoagulation: Full dose Lovenox at 1 mg/kg body weight every 12 hourly as per creatinine clearance. Switching to NOAC as an outpatient. Preferably Xarelto as it is cheaper from [address] plan for the patient. Status: Acute (7) COPD (chronic obstructive pulmonary disease): Status: Acute (8) Cardiac arrest with successful resuscitation: Status: Acute Plan Anemia: Post monitor blood transfusion. Hemoglobin stable. We will continue to monitor BC daily for now. Protonix 40 mg IV twice daily. Carafate before meals and at bedtime. Analgesia: Tylenol 325 mg every 6 hourly as needed, [place] 5 mg every 6 hourly as needed. Glycemic control: Not needed Nutrition: Cardiac diet CODE STATUS: Full code PUD prophylaxis: Protonix DVT prophylaxis: Full dose Lovenox will suffice for DVT prophylaxis Discharge planning: Given the events of cardiac arrest during hospitalization, knee surgery patient most likely she would need discharge to SNF. Patient has finally reluctantly agreed to go to SNF. Case management alerted. Transfer to cardiac stepdown unit. Attestations Medical Necessity Statement*: Currently awaiting placement to fdc. Coding Level of Care Code Acute Cushion Padder for Daron Fwd Exam Expanded Problem Focused Diagnoses Cardiac arrest with ventricular fibrillation I46.9; I49.01 Encounter for postoperative care Z48.89 Status post total right knee replacement not using cement Z96.651 Essential (primary) hypertension I10 Atrial fibrillation with RVR I48.91 Chronic anticoagulation Z79.01 COPD (chronic obstructive pulmonary disease) J44.9 Cardiac arrest with successful resuscitation I46.9
[2021-10-08] MEDS: apixaban 5 mg Tablet PO (20:37)
[2021-10-09] VITALS (15 sets, daily range): BP systolic 106–136; BP diastolic 55–79; PULSE 69–90; RESP 14–22; TEMP 36.8–37.2; O2SAT 90–99
[2021-10-09] MEDS: ipratropium-albuterol 3 mL Neb INHALATION ×4 (02:59→19:55)
[2021-10-09] MEDS: sucralfate 1 gm/10 mL Oral Liq UDC PO ×4 (06:22→21:17)
[2021-10-09] MEDS: HYDROcodone-acetaminophen 5-325 mg Tablet 1 TAB PO ×3 (06:32→18:42)
[2021-10-09] MEDS: multivitamin therapeutic Tablet 1 TAB PO (08:51)
[2021-10-09] MEDS: calcium carbonate 500 mg Chew Tablet 1000 MG PO ×2 (08:51→17:12)
[2021-10-09] MEDS: iron polysaccharide complex 150 mg Capsule PO ×2 (08:51→17:12)
[2021-10-09] MEDS: cholecalciferol (vitamin D3) 1,000 unit Tablet 1000 UNIT PO (08:51)
[2021-10-09] MEDS: pantoprazole 40 mg SDV IVP (08:51)
[2021-10-09] MEDS: amiodarone 200 mg Tablet PO ×2 (08:51→17:12)
[2021-10-09] MEDS: chlorhexidine gluconate 0.12% Btl 473 mL 30 ML MUCOUS MEM ×3 (08:52→21:17)
[2021-10-09] MEDS: primidone 50 mg Tablet PO ×2 (08:56→17:14)
[2021-10-09] MEDS: metoprolol tartrate 25 mg Tablet 12.5 MG PO (08:56)
[2021-10-09] MEDS: apixaban 5 mg Tablet PO ×2 (08:56→21:17)
[2021-10-09] MEDS: fentaNYL 12 mcg Patch 1 PATCH TRANSDERMA (12:53)
--- NOTE | 2021-10-09 16:14 | PM.PN ---
Subjective Subjective: Patient was seen and examined this morning.Having frequent polymorphic PVCs on the telemetry, since his Blood pressure is decent, will increase dose of metoprolol to 25 mg p.o. twice daily, and hope for improvement in polymorphic PVCs. Medications: Reviewed: Yes Medication Review Details: Generic Name Dose Route Start Last Admin Trade Name Freq PRN Reason Stop Dose Admin Acetaminophen 325 mg 10/04/21 15:58 10/06/21 01:58 Acetaminophen 32 5 Mg Tablet PO 325 mg Q6H PRN Administration MILD PAIN Hydrocodone Bitart /Acetaminophen 1 tab 10/04/21 15:58 10/08/21 09:16 Hydrocodone-Acet aminophen 5-325 Mg Tablet PO 1 tab Q6H PRN Administration MODERATE PAIN Albuterol/Ipratrop ium 3 ml 10/08/21 14:00 10/08/21 15:11 Ipratropium-Albu terol 3 Ml Neb INHALATION 3 ml Q6H.RESP ALEXANDRA Administration Amiodarone HCl 200 mg 10/04/21 18:00 10/08/21 08:02 Amiodarone 200 M g Tablet PO 200 mg BID ALEXANDRA Administration Calcium Carbonate 1,000 mg 10/02/21 18:00 10/08/21 08:02 Calcium Carbonat e 500 Mg Chew Tabl et PO 1,000 mg BID ALEXANDRA Administration Chlorhexidine Gluc maximiliano 30 ml 10/02/21 13:00 10/08/21 13:56 Chlorhexidine Gl uconate 0.12% Btl 473 Ml MUCOUS MEM 30 ml QID ALEXANDRA Administration Denture Adhesive 1 applic 10/05/21 10:24 10/05/21 10:39 Fixodent 39 Gm T ube DENTAL 1 applic PRN PRN Administration denture adhesive Fentanyl 1 patch 10/03/21 12:00 10/06/21 14:17 Fentanyl 12 Mcg Patch TRANSDERMA 1 patch Q72H ALEXANDRA Administration Levalbuterol HCl 0.63 mg 10/03/21 11:27 10/08/21 09:09 Levalbuterol 0.6 3 Mg/3 Ml Neb INHALATION 0.63 mg QID.RESPIRATORY P RN Administration SHORTNESS OF NICOLE TH Metoprolol Tartrat e 12.5 mg 10/06/21 09:00 10/08/21 08:01 Metoprolol Tartr ate 25 Mg Tablet PO 12.5 mg BID@0900,2100 ALEXANDRA Administration Multivitamins Ther apeutic 1 tab 10/03/21 09:00 10/08/21 08:02 Multivitamin The rapeutic Tablet PO 1 tab DAILY ALEXANDRA Administration Pantoprazole Sodiu m 40 mg 10/06/21 18:00 10/08/21 08:06 Pantoprazole 40 Mg Sdv IVP 40 mg BID ALEXANDRA Administration Polysaccharide Iro n Complex 150 mg 10/02/21 18:00 10/08/21 08:01 Iron Polysacchar amara Complex 150 Mg Capsule PO 150 mg BIDWM ALEXANDRA Administration Primidone 50 mg 10/02/21 18:00 10/08/21 08:10 Primidone 50 Mg Tablet PO 50 mg BID ALEXANDRA Administration Fluticasone/Salmet vickey 1 puff 10/06/21 09:40 10/08/21 09:09 Fluticasone-Salm eterol 250-50 Disk us INHALATION 1 puff BID.RESPIRATORY S CH Administration Senna/Docusate Sod ium 2 tab 10/02/21 18:00 10/08/21 08:01 Sennosides-Docus ate Tablet PO 2 tab BID ALEXANDRA Administration Sucralfate 1 gm 10/06/21 17:00 10/08/21 10:55 Sucralfate 1 Gm/ 10 Ml Oral Liq Udc PO 1 gm AC&BEDTIME ALEAXNDRA Administration Tiotropium [place] 18 mcg 10/07/21 08:00 10/08/21 09:10 Tiotropium 18 Mc g Mdi INHALATION 1 puff DAILY.RESPIRATORY ALEXANDRA Administration Vitamin D 1,000 unit 10/03/21 09:00 10/08/21 08:01 Cholecalciferol (Vitamin D3) 1,000 Unit Tablet PO 1,000 unit DAILY ALEXANDRA Administration Vitals/I&O/Wt Last Vital Signs Temp 98.3 F 10/09/21 15:26 Pulse 81 10/09/21 15:26 Resp 22 H 10/09/21 15:26 BP 128/61 10/09/21 15:26 Pulse Ox 97 10/09/21 15:26 O2 Del Method 10/09/21 15:26 O2 Flow Rate 2 10/09/21 15:24 FiO2 30 10/05/21 16:00 10/09/21 10/09/21 10/09/21 06:59 14:59 22:59 Intake Total 240 / 956 240 / 240 Output Total 500 / 1000 Balance -260 / -44 240 / 240 Weight last 48 hrs Weight 92.578 kg Weight 92.703 kg Physical Exam Const: COMMON NORMALS: patient oriented x3 HENMT: COMMON NORMALS: normocephalic and atraumatic HEAD & SCALP: normocephalic and atraumatic Resp: COMMON NORMALS: clear to auscultation bilaterally AUSCULTATION: clear to auscultation bilaterally Cardio: COMMON NORMALS: regular rate, regular rhythm, S1 normal heart sound present, S2 normal heart sound present, No gallops present (Cardio), No murmurs present (Cardio), No rub (Cardio) and Peripheral pulses 2+ throughout RATE: regular rate RHYTHM: regular rhythm HEART SOUNDS: S1 normal heart sound present and S2 normal heart sound present PERIPHERAL PULSES: Peripheral pulses 2+ throughout GI: COMMON NORMALS: Normal to inspection, nondistended, normoactive bowel sounds present, Soft to palpation, non-tender, No hepatosplenomegaly present and no masses AUSCULTATION: Yes normoactive bowel sounds PALPATION: Yes Soft to palpation and Yes No hepatosplenomegaly present RECTAL EXAM: Yes deferred Neuro: COMMON NORMALS: patient oriented x3 Urinary Catheter Management: Raymundo: Cath Placed During This Visit: yes Reason for Continuing Indwelling Catheter: Other Urinary Catheter Date of Insertion: 10/02/21 Urinary Catheter Time of Insertion: 07:20 Data : 10/08/21 04:00 10/08/21 04:00 A&P Assessment and plan (1) Cardiac arrest with ventricular fibrillation: Ventricular tachycardia cardiac arrest. Achieved ROSC after 1 cycle of ACLS protocol CPR. Post ROSC patient GCS E4 M5V 6. Appreciate CTA, CT head, echocardiogram, lower limb Doppler results. Appreciate Lexiscan stress test result and cardiology recommendations. Minimal CAD on cardiac angiogram done on 10/05. Plan for medical management Patient denies any active chest pain. Keep magnesium around 2, potassium around 4. Amiodarone at 200 mg twice daily. Maintain blood pressure over 65. Keep saturation over 88%. Has remained hemodynamically stable and afebrile without leukocytosis off antibiotics. DuoNebs every 6 hour, budesonide twice daily. Continue with Lovenox at 1 mg/kg body weight every 12 hourly. Discussed with patient regarding NOAC versus warfarin as an outpatient. He states he was not on NOAC because of financial constraints. We discussed regarding [address] [facility] and financial plan. Patient states if he is able to get medication for cheaper [place] he will be more than happy to be on NOAC. Discussed with case management. Patient will be able to get Xarelto. Patient is agreeable. Plan to discharge patient on Xarelto. Will stop Lovenox and warfarin on discharge. Status: Acute (2) Encounter for postoperative care: Postoperative day5. Physical therapy as per orthopedic team. For medication?Tylenol 325 mg every 6 hourly, [place] 5 mg every 6 hourly. We will try to avoid oversedation. Status: Acute (3) Status post total right knee replacement not using cement: Status: Acute (4) Essential (primary) hypertension: Goal blood pressure less than 140/90 mmHg with mean over 65. Hold off on propranolol given soft blood pressures overnight. Status: Chronic (5) Atrial fibrillation with RVR: Continue with oral amiodarone, metoprolol 12.5 mg twice daily. On Eliquis. Will discharge on home oral anticoagulation Status: Resolved (6) Chronic anticoagulation: Full dose Lovenox at 1 mg/kg body weight every 12 hourly as per creatinine clearance. Switching to NOAC as an outpatient. Preferably Xarelto as it is cheaper from [address] plan for the patient. Status: Acute (7) COPD (chronic obstructive pulmonary disease): Status: Acute (8) Cardiac arrest with successful resuscitation: Status: Acute Plan Anemia: Post monitor blood transfusion. Hemoglobin stable. We will continue to monitor BC daily for now. Protonix 40 mg po twice daily. Carafate before meals and at bedtime. Analgesia: Tylenol 325 mg every 6 hourly as needed, [place] 5 mg every 6 hourly as needed. Glycemic control: Not needed Nutrition: Cardiac diet CODE STATUS: Full code PUD prophylaxis: Protonix DVT prophylaxis: Full dose Lovenox will suffice for DVT prophylaxis Discharge planning: Given the events of cardiac arrest during hospitalization, knee surgery patient most likely she would need discharge to SNF. Patient has finally reluctantly agreed to go to SNF. Case management alerted. Transfer to cardiac stepdown unit. Attestations Medical Necessity Statement*: Patient is currently awaiting detention placement. Time Spent in Patient Care: Greater than 35 minutes Coding Level of Care Code Acute Product Control And Logistics Analyst for Chg Fwd Diagnoses Cardiac arrest with ventricular fibrillation I46.9; I49.01 Encounter for postoperative care Z48.89 Status post total right knee replacement not using cement Z96.651 Essential (primary) hypertension I10 Atrial fibrillation with RVR I48.91 Chronic anticoagulation Z79.01 COPD (chronic obstructive pulmonary disease) J44.9 Cardiac arrest with successful resuscitation I46.9
[2021-10-09] MEDS: pantoprazole DR 40 mg Tablet PO (17:11)
[2021-10-09] MEDS: metoprolol tartrate 25 mg Tablet PO (21:17)
[2021-10-10] VITALS (12 sets, daily range): BP systolic 102–147; BP diastolic 58–78; PULSE 63–84; RESP 12–18; TEMP 36.6–37.1; O2SAT 88–96
[2021-10-10] MEDS: ipratropium-albuterol 3 mL Neb INHALATION ×3 (02:10→15:10)
[2021-10-10] MEDS: sucralfate 1 gm/10 mL Oral Liq UDC PO ×4 (06:43→21:11)
[2021-10-10] MEDS: iron polysaccharide complex 150 mg Capsule PO ×2 (08:04→17:46)
[2021-10-10] MEDS: multivitamin therapeutic Tablet 1 TAB PO (08:04)
[2021-10-10] MEDS: HYDROcodone-acetaminophen 5-325 mg Tablet 1 TAB PO (08:04)
[2021-10-10] MEDS: primidone 50 mg Tablet PO (08:04)
[2021-10-10] MEDS: pantoprazole DR 40 mg Tablet PO ×2 (08:04→17:45)
[2021-10-10] MEDS: cholecalciferol (vitamin D3) 1,000 unit Tablet 1000 UNIT PO (08:04)
[2021-10-10] MEDS: amiodarone 200 mg Tablet PO ×2 (08:04→17:47)
[2021-10-10] MEDS: apixaban 5 mg Tablet PO ×2 (08:05→21:11)
[2021-10-10] MEDS: metoprolol tartrate 25 mg Tablet PO ×2 (08:05→21:11)
[2021-10-10] MEDS: calcium carbonate 500 mg Chew Tablet 1000 MG PO ×2 (08:05→17:47)
[2021-10-10] MEDS: chlorhexidine gluconate 0.12% Btl 473 mL 30 ML MUCOUS MEM ×4 (08:06→21:11)
--- NOTE | 2021-10-10 12:06 | PC.SOCIAL ---
IMM Updated Updated pt on IMM. No questions voiced. Provided pt a copy. Initialed, dated, & timed copy in chart.
[2021-10-10] MEDS: acetaminophen 325 mg Tablet PO (14:33)
--- NOTE | 2021-10-10 17:57 | P.PN_ITS ---
Subjective Subjective: Patient was seen and examined this morning. No acute events overnight. Medications: Reviewed: Yes Medication Review Details: Generic Name Dose Route Start Last Admin Trade Name Freq PRN Reason Stop Dose Admin Acetaminophen 325 mg 10/04/21 15:58 10/10/21 14:33 Acetaminophen 32 5 Mg Tablet PO 325 mg Q6H PRN Administration MILD PAIN Albuterol/Ipratrop ium 3 ml 10/08/21 14:00 10/10/21 15:10 Ipratropium-Albu terol 3 Ml Neb INHALATION 3 ml Q6H.RESP ALEXANDRA Administration Amiodarone HCl 200 mg 10/04/21 18:00 10/10/21 17:47 Amiodarone 200 M g Tablet PO 200 mg BID ALEXANDRA Administration Apixaban 5 mg 10/08/21 21:00 10/10/21 08:05 Apixaban 5 Mg Ta blet PO 5 mg BID@0900,2100 ALEXANDRA Administration Calcium Carbonate 1,000 mg 10/02/21 18:00 10/10/21 17:47 Calcium Carbonat e 500 Mg Chew Tabl et PO 1,000 mg BID ALEXANDRA Administration Chlorhexidine Gluc maximiliano 30 ml 10/02/21 13:00 10/10/21 17:47 Chlorhexidine Gl uconate 0.12% Btl 473 Ml MUCOUS MEM 30 ml QID ALEXANDRA Administration Denture Adhesive 1 applic 10/05/21 10:24 10/05/21 10:39 Fixodent 39 Gm T ube DENTAL 1 applic PRN PRN Administration denture adhesive Fentanyl 1 patch 10/03/21 12:00 10/09/21 12:53 Fentanyl 12 Mcg Patch TRANSDERMA 1 patch Q72H ALEXANDRA Administration Levalbuterol HCl 0.63 mg 10/03/21 11:27 10/08/21 09:09 Levalbuterol 0.6 3 Mg/3 Ml Neb INHALATION 0.63 mg QID.RESPIRATORY P RN Administration SHORTNESS OF NICOLE TH Metoprolol Tartrat e 25 mg 10/09/21 21:00 10/10/21 08:05 Metoprolol Tartr ate 25 Mg Tablet PO 25 mg BID@0900,2100 ALEXANDRA Administration Multivitamins Ther apeutic 1 tab 10/03/21 09:00 10/10/21 08:04 Multivitamin The rapeutic Tablet PO 1 tab DAILY ALEXANDRA Administration Pantoprazole Sodiu m 40 mg 10/09/21 18:00 10/10/21 17:[address] 40 Mg Tablet PO 40 mg BID ALEXANDRA Administration Polysaccharide Iro n Complex 150 mg 10/02/21 18:00 10/10/21 17:46 Iron Polysacchar amara Complex 150 Mg Capsule PO 150 mg BIDWM ALEXANDRA Administration Fluticasone/Salmet vickey 1 puff 10/06/21 09:40 10/10/21 08:22 Fluticasone-Salm eterol 250-50 Disk us INHALATION 1 puff BID.RESPIRATORY S CH Administration Senna/Docusate Sod ium 2 tab 10/02/21 18:00 10/10/21 17:50 Sennosides-Docus ate Tablet PO Not Given BID ALEXANDRA Sucralfate 1 gm 10/06/21 17:00 10/10/21 17:47 Sucralfate 1 Gm/ 10 Ml Oral Liq Udc PO 1 gm AC&BEDTIME ALEXANDRA Administration Tiotropium [place] 18 mcg 10/07/21 08:00 10/10/21 08:22 Tiotropium 18 Mc g Mdi INHALATION 1 puff DAILY.RESPIRATORY ALEXANDRA Administration Vitamin D 1,000 unit 10/03/21 09:00 10/10/21 08:04 Cholecalciferol (Vitamin D3) 1,000 Unit Tablet PO 1,000 unit DAILY ALEXANDRA Administration Vitals/I&O/Wt Last Vital Signs Temp 98.1 F 10/10/21 16:00 Pulse 81 10/10/21 16:00 Resp 16 10/10/21 16:00 BP 135/60 10/10/21 16:00 Pulse Ox 94 10/10/21 16:00 O2 Del Method 10/10/21 15:00 O2 Flow Rate 3 10/10/21 15:00 FiO2 30 10/05/21 16:00 10/10/21 10/10/21 10/10/21 06:59 14:59 22:59 Intake Total 100 / 440 Output Total 375 / 375 Balance 100 / -110 -375 / -375 Weight last 48 hrs Weight 94.574 kg Weight 92.578 kg Physical Exam Const: COMMON NORMALS: patient oriented x3 HENMT: COMMON NORMALS: normocephalic and atraumatic HEAD & SCALP: normocephalic and atraumatic Resp: COMMON NORMALS: clear to auscultation bilaterally AUSCULTATION: clear to auscultation bilaterally OTHER: Minimal expiratory wheezing present bilaterally in both lungs. Cardio: COMMON NORMALS: regular rate, regular rhythm, S1 normal heart sound present, S2 normal heart sound present, No gallops present (Cardio), No murmurs present (Cardio), No rub (Cardio) and Peripheral pulses 2+ throughout RATE: regular rate RHYTHM: regular rhythm HEART SOUNDS: S1 normal heart sound present and S2 normal heart sound present PERIPHERAL PULSES: Peripheral pulses 2+ throughout GI: COMMON NORMALS: Normal to inspection, nondistended, normoactive bowel sounds present, Soft to palpation, non-tender, No hepatosplenomegaly present and no masses AUSCULTATION: Yes normoactive bowel sounds PALPATION: Yes Soft to palpation and Yes No hepatosplenomegaly present RECTAL EXAM: Yes deferred Neuro: COMMON NORMALS: patient oriented x3 Urinary Catheter Management: Raymundo: Cath Placed During This Visit: yes Reason for Continuing Indwelling Catheter: Chronic Indwelling Urinary Catheter on Admission Urinary Catheter Date of Insertion: 10/02/21 Urinary Catheter Time of Insertion: 07:20 Data : 10/08/21 04:00 10/08/21 04:00 A&P Assessment and plan (1) Cardiac arrest with ventricular fibrillation: Ventricular tachycardia cardiac arrest. Achieved ROSC after 1 cycle of ACLS protocol CPR. Post ROSC patient GCS E4 M5V 6. Appreciate CTA, CT head, echocardiogram, lower limb Doppler results. Appreciate Lexiscan stress test result and cardiology recommendations. Minimal CAD on cardiac angiogram done on 10/05. Plan for medical management Patient denies any active chest pain. Keep magnesium around 2, potassium around 4. Amiodarone at 200 mg twice daily. Maintain blood pressure over 65. Keep saturation over 88%. Has remained hemodynamically stable and afebrile without leukocytosis off antibiotics. DuoNebs every 6 hour, budesonide twice daily. Continue with Lovenox at 1 mg/kg body weight every 12 hourly. Discussed with patient regarding NOAC versus warfarin as an outpatient. He states he was not on NOAC because of financial constraints. We discussed regarding [facility] and financial plan. Patient states if he is able to get medication for cheaper montano he will be more than happy to be on NOAC. Discussed with case management. Patient will be able to get Xarelto. Patient is agreeable. Plan to discharge patient on Xarelto. Will stop Lovenox and warfarin on discharge. Status: Acute (2) Encounter for postoperative care: Postoperative day5. Physical therapy as per orthopedic team. For medication?Tylenol 325 mg every 6 hourly, Val[place] 5 mg every 6 hourly. We will try to avoid oversedation. Status: Acute (3) Status post total right knee replacement not using cement: Status: Acute (4) Essential (primary) hypertension: Goal blood pressure less than 140/90 mmHg with mean over 65. Hold off on propranolol given soft blood pressures overnight. Status: Chronic (5) Atrial fibrillation with RVR: Continue with oral amiodarone, metoprolol 12.5 mg twice daily. On Eliquis. Will discharge on home oral anticoagulation Status: Resolved (6) Chronic anticoagulation: Full dose Lovenox at 1 mg/kg body weight every 12 hourly as per creatinine clearance. Switching to NOAC as an outpatient. Preferably Xarelto as it is cheaper from [facility] plan for the patient. Status: Acute (7) COPD (chronic obstructive pulmonary disease): Status: Acute (8) Cardiac arrest with successful resuscitation: Status: Acute Plan Anemia: Post monitor blood transfusion. Hemoglobin stable. We will continue to monitor BC daily for now. Protonix 40 mg po twice daily. Carafate before meals and at bedtime. Analgesia: Tylenol 325 mg every 6 hourly as needed, [place]yer 5 mg every 6 hourly as needed. Glycemic control: Not needed Nutrition: Cardiac diet CODE STATUS: Full code PUD prophylaxis: Protonix DVT prophylaxis: Full dose Lovenox will suffice for DVT prophylaxis Discharge planning: Given the events of cardiac arrest during hospitalization, knee surgery patient most likely she would need discharge to SNF. Patient has finally reluctantly agreed to go to SNF. Case management alerted. Transfer to cardiac stepdown unit. Attestations Medical Necessity Statement*: Patient is currently awaiting skilled nursing placement. Coding Level of Care Code Acute Tandem Operator for Daron Fwlisette Diagnoses Cardiac arrest with ventricular fibrillation I46.9; I49.01 Encounter for postoperative care Z48.89 Status post total right knee replacement not using cement Z96.651 Essential (primary) hypertension I10 Atrial fibrillation with RVR I48.91 Chronic anticoagulation Z79.01 COPD (chronic obstructive pulmonary disease) J44.9 Cardiac arrest with successful resuscitation I46.9
[2021-10-11] VITALS (7 sets, daily range): BP systolic 126–161; BP diastolic 65–79; PULSE 70–98; RESP 13–18; TEMP 36.8–37.2; O2SAT 93–97; BMI 27.5
[2021-10-11 04:26] LABS: Basophils % 0.3 %; Eosinophils # 0.4 10^3/uL (0.0-0.8); Eosinophils % 5.8 %; Hematocrit 28.9 % (42.0-52.0); Hemoglobin 9.1 g/dL (11.7-16.6); Lymphocytes # 0.9 10^3/uL (0.8-4.8); Lymphocytes % 11.2 %; Mean Corpuscular HGB Conc 31.5 g/dL (30.0-36.0); Mean Corpuscular Hemoglobin 31.9 pg (28.0-34.0); Mean Corpuscular Volume 101.4 fl (80-94); Mean Platelet Volume 10.2 fL (7.4-10.4); Monocytes # 1.1 10^3/uL (0.2-0.9); Neutrophils # 5.07 10^3/uL (1.8-7.7); Neutrophils % 66.5 %; Nucleated Red Blood Cells % 0 %; Platelet Count 371 10^3/cmm (130-400); Red Blood Count 2.85 10^6/uL (4.1-5.3); Red Cell Distribution Width 13.7 % (12.1-15.1); White Blood Count 7.6 10^3/uL (4.0-10.0)
[2021-10-11 04:55] LABS: Blood Urea Nitrogen 12 mg/dL (8-23); Calcium 8.1 mg/dL (8.5-10.5); Carbon Dioxide 28 mmol/L (22-29); Chloride 104 mmol/L (98-107); Glucose 165 mg/dL (65-115); Osmolality Calculated 289 mOsm/kg (285-295); Sodium 138 mmol/L (136-145)
[2021-10-11] MEDS: sucralfate 1 gm/10 mL Oral Liq UDC PO ×4 (06:10→20:46)
[2021-10-11] MEDS: iron polysaccharide complex 150 mg Capsule PO ×2 (09:41→17:38)
[2021-10-11] MEDS: cholecalciferol (vitamin D3) 1,000 unit Tablet 1000 UNIT PO (09:42)
[2021-10-11] MEDS: metoprolol tartrate 25 mg Tablet PO ×2 (09:42→20:46)
[2021-10-11] MEDS: amiodarone 200 mg Tablet PO ×2 (09:42→17:38)
[2021-10-11] MEDS: apixaban 5 mg Tablet PO ×2 (09:42→20:46)
[2021-10-11] MEDS: sennosides-docusate Tablet 2 TAB PO ×2 (09:42→17:38)
[2021-10-11] MEDS: pantoprazole DR 40 mg Tablet PO ×2 (09:42→17:38)
[2021-10-11] MEDS: chlorhexidine gluconate 0.12% Btl 473 mL 30 ML MUCOUS MEM ×4 (09:43→20:47)
[2021-10-11] MEDS: calcium carbonate 500 mg Chew Tablet 1000 MG PO ×2 (09:43→17:37)
[2021-10-11] MEDS: multivitamin therapeutic Tablet 1 TAB PO (09:43)
[2021-10-11 14:47] LABS: SARS Covid-2 Antigen Negative (Negative)
--- NOTE | 2021-10-11 15:39 | PM.PN ---
Subjective Subjective: Patient was seen and examined this morning. No acute events overnight. I was informed by the social insurance administrator, that he is out of network with [facility] and family cannot afford to private pay, son was here today and unfortunately has left for the day, they have agreed to take him home tomorrow in the morning. Medications: Reviewed: Yes Medication Review Details: Generic Name Dose Route Start Last Admin Trade Name Yeisonq PRN Reason Stop Dose Admin Acetaminophen 325 mg 10/04/21 15:58 10/10/21 14:33 Acetaminophen 32 5 Mg Tablet PO 325 mg Q6H PRN Administration MILD PAIN Albuterol/Ipratrop ium 3 ml 10/08/21 14:00 10/10/21 15:10 Ipratropium-Albu terol 3 Ml Neb INHALATION 3 ml Q6H.RESP ALEXANDRA Administration Amiodarone HCl 200 mg 10/04/21 18:00 10/10/21 17:47 Amiodarone 200 M g Tablet PO 200 mg BID ALEXANDRA Administration Apixaban 5 mg 10/08/21 21:00 10/10/21 08:05 Apixaban 5 Mg Ta blet PO 5 mg BID@0900,2100 ALEXANDRA Administration Calcium Carbonate 1,000 mg 10/02/21 18:00 10/10/21 17:47 Calcium Carbonat e 500 Mg Chew Tabl et PO 1,000 mg BID ALEXANDRA Administration Chlorhexidine Gluc maximiliano 30 ml 10/02/21 13:00 10/10/21 17:47 Chlorhexidine Gl uconate 0.12% Btl 473 Ml MUCOUS MEM 30 ml QID ALEXANDRA Administration Denture Adhesive 1 applic 10/05/21 10:24 10/05/21 10:39 Fixodent 39 Gm T ube DENTAL 1 applic PRN PRN Administration denture adhesive Fentanyl 1 patch 10/03/21 12:00 10/09/21 12:53 Fentanyl 12 Mcg Patch TRANSDERMA 1 patch Q72H ALEXANDRA Administration Levalbuterol HCl 0.63 mg 10/03/21 11:27 10/08/21 09:09 Levalbuterol 0.6 3 Mg/3 Ml Neb INHALATION 0.63 mg QID.RESPIRATORY P RN Administration SHORTNESS OF NICOLE TH Metoprolol Tartrat e 25 mg 10/09/21 21:00 10/10/21 08:05 Metoprolol Tartr ate 25 Mg Tablet PO 25 mg BID@0900,2100 ALEXANDRA Administration Multivitamins Ther apeutic 1 tab 10/03/21 09:00 10/10/21 08:04 Multivitamin The rapeutic Tablet PO 1 tab DAILY ALEXANDRA Administration Pantoprazole Sodiu m 40 mg 10/09/21 18:00 10/10/21 17:[address] 40 Mg Tablet PO 40 mg BID ALEXANDRA Administration Polysaccharide Iro n Complex 150 mg 10/02/21 18:00 10/10/21 17:46 Iron Polysacchar amara Complex 150 Mg Capsule PO 150 mg BIDWM ALEXANDRA Administration Fluticasone/Salmet vickey 1 puff 10/06/21 09:40 10/10/21 08:22 Fluticasone-Salm eterol 250-50 Disk us INHALATION 1 puff BID.RESPIRATORY S CH Administration Senna/Docusate Sod ium 2 tab 10/02/21 18:00 10/10/21 17:50 Sennosides-Docus ate Tablet PO Not Given BID ALEXANDRA Sucralfate 1 gm 10/06/21 17:00 10/10/21 17:47 Sucralfate 1 Gm/ 10 Ml Oral Liq Udc PO 1 gm AC&BEDTIME ALEXANDRA Administration Tiotropium [place] 18 mcg 10/07/21 08:00 10/10/21 08:22 Tiotropium 18 Mc g Mdi INHALATION 1 puff DAILY.RESPIRATORY ALEXANDRA Administration Vitamin D 1,000 unit 10/03/21 09:00 10/10/21 08:04 Cholecalciferol (Vitamin D3) 1,000 Unit Tablet PO 1,000 unit DAILY ALEXANDRA Administration Vitals/I&O/Wt Last Vital Signs Temp 98.4 F 10/11/21 12:00 Pulse 97 10/11/21 12:00 Resp 17 10/11/21 12:00 BP 153/65 10/11/21 12:00 Pulse Ox 94 10/11/21 12:00 O2 Del Method 10/11/21 12:00 O2 Flow Rate 3 10/11/21 12:00 FiO2 30 10/05/21 16:00 10/11/21 10/11/21 10/11/21 06:59 14:59 22:59 Intake Total 200 / 200 480 / 480 Output Total 1400 / 2175 Balance -1200 / -1975 480 / 480 Weight last 48 hrs Weight 94.574 kg Weight 94.574 kg Physical Exam Const: COMMON NORMALS: patient oriented x3 HENMT: COMMON NORMALS: normocephalic and atraumatic HEAD & SCALP: normocephalic and atraumatic Resp: COMMON NORMALS: clear to auscultation bilaterally AUSCULTATION: clear to auscultation bilaterally OTHER: Minimal expiratory wheezing present bilaterally in both lungs. Cardio: COMMON NORMALS: regular rate, regular rhythm, S1 normal heart sound present, S2 normal heart sound present, No gallops present (Cardio), No murmurs present (Cardio), No rub (Cardio) and Peripheral pulses 2+ throughout RATE: regular rate RHYTHM: regular rhythm HEART SOUNDS: S1 normal heart sound present and S2 normal heart sound present PERIPHERAL PULSES: Peripheral pulses 2+ throughout GI: COMMON NORMALS: Normal to inspection, nondistended, normoactive bowel sounds present, Soft to palpation, non-tender, No hepatosplenomegaly present and no masses AUSCULTATION: Yes normoactive bowel sounds PALPATION: Yes Soft to palpation and Yes No hepatosplenomegaly present RECTAL EXAM: Yes deferred Neuro: COMMON NORMALS: patient oriented x3 Urinary Catheter Management: Raymundo: Cath Placed During This Visit: yes Reason for Continuing Indwelling Catheter: Chronic Indwelling Urinary Catheter on Admission Urinary Catheter Date of Insertion: 10/02/21 Urinary Catheter Time of Insertion: 07:20 Data : 10/11/21 04:09 10/11/21 04:09 A&P Assessment and plan (1) Cardiac arrest with ventricular fibrillation: Ventricular tachycardia cardiac arrest. Achieved ROSC after 1 cycle of ACLS protocol CPR. Post ROSC patient GCS E4 M5V 6. Appreciate CTA, CT head, echocardiogram, lower limb Doppler results. Appreciate Lexiscan stress test result and cardiology recommendations. Minimal CAD on cardiac angiogram done on 10/05. Plan for medical management Patient denies any active chest pain. Keep magnesium around 2, potassium around 4. Amiodarone at 200 mg twice daily. Maintain blood pressure over 65. Keep saturation over 88%. Has remained hemodynamically stable and afebrile without leukocytosis off antibiotics. DuoNebs every 6 hour, budesonide twice daily. Continue with Lovenox at 1 mg/kg body weight every 12 hourly. Discussed with patient regarding NOAC versus warfarin as an outpatient. He states he was not on NOAC because of financial constraints. We discussed regarding [facility] [address] [facility] and financial plan. Patient states if he is able to get medication for cheaper montano he will be more than happy to be on NOAC. Discussed with case management. Patient will be able to get Xarelto. Patient is agreeable. Plan to discharge patient on Xarelto. Will stop Lovenox and warfarin on discharge. Status: Acute (2) Encounter for postoperative care: Postoperative day5. Physical therapy as per orthopedic team. For medication?Tylenol 325 mg every 6 hourly, Elton 5 mg every 6 hourly. We will try to avoid oversedation. Status: Acute (3) Status post total right knee replacement not using cement: Status: Acute (4) Essential (primary) hypertension: Goal blood pressure less than 140/90 mmHg with mean over 65. Hold off on propranolol given soft blood pressures overnight. Status: Chronic (5) Atrial fibrillation with RVR: Continue with oral amiodarone, metoprolol 12.5 mg twice daily. On Eliquis. Will discharge on home oral anticoagulation Status: Resolved (6) Chronic anticoagulation: Full dose Lovenox at 1 mg/kg body weight every 12 hourly as per creatinine clearance. Switching to NOAC as an outpatient. Preferably Xarelto as it is cheaper from [facility] [address] plan for the patient. Status: Acute (7) COPD (chronic obstructive pulmonary disease): Status: Acute (8) Cardiac arrest with successful resuscitation: Status: Acute Plan Anemia: Post monitor blood transfusion. Hemoglobin stable. We will continue to monitor BC daily for now. Protonix 40 mg po twice daily. Carafate before meals and at bedtime. Analgesia: Tylenol 325 mg every 6 hourly as needed, Elton 5 mg every 6 hourly as needed. Glycemic control: Not needed Nutrition: Cardiac diet CODE STATUS: Full code PUD prophylaxis: Protonix DVT prophylaxis: Full dose Lovenox will suffice for DVT prophylaxis Discharge planning: Home with home PT. Attestations Medical Necessity Statement*: Anticipated discharge tomorrow. Coding Level of Care Code Acute Wooling Machine Operator for Daron Fwlisette Diagnoses Cardiac arrest with ventricular fibrillation I46.9; I49.01 Encounter for postoperative care Z48.89 Status post total right knee replacement not using cement Z96.651 Essential (primary) hypertension I10 Atrial fibrillation with RVR I48.91 Chronic anticoagulation Z79.01 COPD (chronic obstructive pulmonary disease) J44.9 Cardiac arrest with successful resuscitation I46.9
[2021-10-11] MEDS: HYDROcodone-acetaminophen 5-325 mg Tablet 1 TAB PO (20:46)
[2021-10-12] VITALS (9 sets, daily range): BP systolic 99–142; BP diastolic 58–78; PULSE 67–112; RESP 16; TEMP 36.5–37; O2SAT 94–96
[2021-10-12] MEDS: HYDROcodone-acetaminophen 5-325 mg Tablet 1 TAB PO (04:04)
[2021-10-12] MEDS: sucralfate 1 gm/10 mL Oral Liq UDC PO ×2 (06:37→12:02)
--- NOTE | 2021-10-12 08:33 | PM.DCS ---
Discharge Providers Date of Admission: 10/03/21 12:46 Date of Discharge: October 12, 2021 Attending Provider at Admission: Halle Ryan MD Attending Provider at Discharge: Андрей Arreola MD Primary Care Provider: Tom Pulido MD Diagnoses at Discharge Discharge Diagnosis (1) Cardiac arrest with ventricular fibrillation: Status: Acute (2) Encounter for postoperative care: Status: Acute (3) Status post total right knee replacement not using cement: Status: Acute (4) Essential (primary) hypertension: Status: Chronic (5) Atrial fibrillation with RVR: Status: Resolved (6) Chronic anticoagulation: Status: Acute (7) COPD (chronic obstructive pulmonary disease): Status: Acute (8) Cardiac arrest with successful resuscitation: Status: Acute Reason for Visit Reason for Visit: Abdominal pain Hospital Course Hospital Course 76 year old male with PMH atrial fibrillation, chronic anticoagulation with Coumadin, HTN admitted for elective Right total knee arthroplasty, hospital course was complicated by development of what appears to be V.FIB arrest s/p defibrillation, ROSC was achieved after 1 cycle of ACLS protocol. Patient thereafter underwent: Nuclear stress test as well as cardiac cath, CTA chest, CT head without contrast, 2D echo, coronary angiogram showed nonocclusive coronary artery disease. 2D echo: Normal left ventricular size and normal systolic function with an estimated ejection fraction of 55 %.? Abnormal septal motion consistent with conduction abnormality.? No regional wall motion abnormality. Initial 2D echo showed: Normal LV size with a borderline low ejection fraction of 50%. Abnormal septal motion consistent with conduction abnormality.Mild left ventricular hypertrophy.Mildly increased right ventricular size. Normal right ventricular systolic function.?Mildly increased right atrial size.?Thickened aortic and mitral valves,?Mild tricuspid valve regurgitation.Mild pulmonary hypertension with an estimated pulmonary artery,peak systolic pressure of 43 mmHg There is no pericardial effusion. Nuclear stress test: Small sized perfusion abnormality of mild severity of basal to mid ?inferolateral and mid anteroseptal blackmon with reversibility in mid? ?inferolateral and mid inferoseptal blackmon on stress images. This may represent old myocardial infarction in right coronary ?artery/circumflex artery territory with mild oseas-infarct ischemia. Specificity of this finding is limited as prone images could not be done. Overall left ventricular systolic function is normal without regional wall motion abnormalities, LVEF=64%. CV venous duplex LE BI: No DVT bilateral lower extremities. CT angio chest?: No large pulmonary embolism. There are a few nonocclusive defects in a subsegmental branch of the LEFT lower lobe which could be chronic.These are not likely to be symptomatic. Moderate chronic emphysema. CT head wo con:No acute intracranial hemorrhage or edema. Patient has been continued on amiodarone, metoprolol has been added 25 mg p.o. twice daily, as patient was also having PVCs on telemetry, anticoagulation with Xarelto has been started, warfarin has been stopped. Initially patient was on therapeutic anticoagulation with Lovenox during the hospital stay. During the hospital stay patient also went into A. fib, with RVR later he converted back to sinus sinus rhythm..Overall patient responded well to above medical management, will continue to follow cardiology as well as primary care physician as an outpatient. Physical Exam Const: COMMON NORMALS: patient oriented x3 HENMT: COMMON NORMALS: normocephalic and atraumatic HEAD & SCALP: normocephalic and atraumatic Resp: COMMON NORMALS: clear to auscultation bilaterally AUSCULTATION: clear to auscultation bilaterally OTHER: Minimal expiratory wheezing present bilaterally in both lungs. Cardio: COMMON NORMALS: regular rate, regular rhythm, S1 normal heart sound present, S2 normal heart sound present, No gallops present (Cardio), No murmurs present (Cardio), No rub (Cardio) and Peripheral pulses 2+ throughout RATE: regular rate RHYTHM: regular rhythm HEART SOUNDS: S1 normal heart sound present and S2 normal heart sound present PERIPHERAL PULSES: Peripheral pulses 2+ throughout GI: COMMON NORMALS: Normal to inspection, nondistended, normoactive bowel sounds present, Soft to palpation, non-tender, No hepatosplenomegaly present and no masses AUSCULTATION: Yes normoactive bowel sounds PALPATION: Yes Soft to palpation and Yes No hepatosplenomegaly present RECTAL EXAM: Yes deferred Neuro: COMMON NORMALS: patient oriented x3 Urinary Catheter Management: Raymundo: Cath Placed During This Visit: yes Reason for Continuing Indwelling Catheter: Chronic Indwelling Urinary Catheter on Admission Urinary Catheter Date of Insertion: 10/02/21 Urinary Catheter Time of Insertion: 07:20 Discharge Data Studies Completed and Pending Completed Studies During Hospitalization Category Date Time Status CT head wo con* [id number] Stat Cat Scan 10/03/21 11:01 Completed CTA chest [CT angio chest [id number]] Stat Cat Scan 10/03/21 10:59 Completed [employer]EL[employer] request for service Routine Exams 10/05/21 09:08 Completed Sestamibi Stress Test Request Routine Exams 10/03/21 16:58 Completed XR chest 1V portable [id number] Stat Exams 10/03/21 11:22 Completed XR knee RT 3V* [id number] Urgent Exams 10/02/21 10:03 Completed NM isis perf SPECT r/s* [id number] Routine Nuc Med 10/04/21 07:00 [place] [id number] Urgent Ultrasound 10/03/21 12:45 Completed CV. echo complete* [id number] Urgent Ultrasound 10/03/21 12:44 Completed US echo limited with contrast [CV. echo lmt w/w contras Ultrasound 10/04/21 12:33 Completed [id number]] Routine Radiology Impressions Knee X-Ray 10/02/21 10:03 IMPRESSION: 1. Total knee replacement in excellent position. Chest CTA 10/03/21 10:59 IMPRESSION: 1. No large pulmonary embolism. 2. There are a few nonocclusive defects in a subsegmental branch of the LEFT lower lobe which could be chronic. These are not likely to be symptomatic. 3. Moderate chronic emphysema. 4. Mild cardiac enlargement. 5. No pneumothorax. Notified Levi Pratt MD at 10/03/2021 12:[address] 10/03/21 11:01 IMPRESSION: 1. No acute intracranial hemorrhage or edema. 2. No sulcal effacement. 3. Atrophy and small vessel ischemic disease. Chest X-Ray 10/03/21 11:22 IMPRESSION: 1. Pulmonary hyperinflation and chronic interstitial changes. No acute process. Laboratory Results WBC 7.6 10^3/uL (4.0-10.0) 10/11/21 04:09 RBC 2.85 10^6/uL (4.1-5.3) L 10/11/21 04:09 Hgb 9.1 g/dL (11.7-16.6) L 10/11/21 04:09 Hct 28.9 % (42.0-52.0) L 10/11/21 04:09 MCV 101.4 fl (80-94) H 10/11/21 04:09 MCH 31.9 pg (28.0-34.0) 10/11/21 04:09 MCHC 31.5 g/dL (30.0-36.0) 10/11/21 04:09 RDW 13.7 % (12.1-15.1) 10/11/21 04:09 Plt Count 371 10^3/cmm (130-400) 10/11/21 04:09 MPV 10.2 fL (7.4-10.4) 10/11/21 04:09 Neut % (Auto) 66.5 % 10/11/21 04:09 Lymph % (Auto) 11.2 % 10/11/21 04:09 [place] % (Auto) 15.0 % 10/11/21 04:09 Eos % (Auto) 5.8 % 10/11/21 04:09 Baso % (Auto) 0.3 % 10/11/21 04:09 Neut # (Auto) 5.07 10^3/uL (1.8-7.7) 10/11/21 04:09 Lymph # (Auto) 0.9 10^3/uL (0.8-4.8) 10/11/21 04:09 [place] # (Auto) 1.1 10^3/uL (0.2-0.9) H 10/11/21 04:09 Eos # (Auto) 0.4 10^3/uL (0.0-0.8) 10/11/21 04:09 Baso # (Auto) 0.0 10^3/uL (0.0-0.1) 10/11/21 04:09 Nucleated RBC % (auto) 0 % 10/11/21 04:09 Nucleated RBCs # 0.0 /100WBC 10/11/21 04:09 PT 15.10 SECONDS (12.1-14.9) H 10/03/21 03:59 INR 1.16 (0.8-1.2) 10/03/21 03:59 D-Dimer 3.14 ug/mIFEU (0-0.59) H 10/03/21 10:55 Sodium 138 mmol/L (136-145) 10/11/21 04:09 Potassium 5.0 mmol/L (3.5-5.1) 10/11/21 04:09 Chloride 104 mmol/L (98-107) 10/11/21 04:09 Carbon Dioxide 28 mmol/L (22-29) 10/11/21 04:09 Anion Gap 11.0 (5-19) 10/11/21 04:09 BUN 12 mg/dL (8-23) 10/11/21 04:09 Creatinine 0.5 mg/dL (0.7-1.2) L 10/11/21 04:09 GFR Calculation Not Reportable 10/11/21 04:09 Glucose 165 mg/dL (65-115) H 10/11/21 04:09 POC Glucose 117 mg/dL (70-110) H 10/03/21 10:55 Estimat Average Glucose 97 10/07/21 02:55 Hemoglobin A1c 5.0 % (4.0-6.0) 10/07/21 02:55 Calculated Osmolality 289 mOsm/kg (285-295) 10/11/21 04:09 Lactic Acid 2.9 mmol/L (0.5-2.2) H 10/03/21 10:55 Lactic Acid (Sepsis) 1.8 mmol/L (0.5-2.2) 10/03/21 13:10 Calcium 8.1 mg/dL (8.5-10.5) L 10/11/21 04:09 Phosphorus 2.4 mg/dL (2.5-4.5) L 10/03/21 10:55 Magnesium 1.9 mg/dL (1.7-2.3) 10/06/21 03:30 Total Bilirubin 0.6 mg/dL (0.15-1.2) 10/08/21 04:00 AST 32 U/L (0-40) 10/08/21 04:00 ALT 33 U/L (0-41) 10/08/21 04:00 Alkaline Phosphatase 69 IU/L (40-130) 10/08/21 04:00 Troponin T Gen 5 ng/L 35 ng/L (0-15) H 10/04/21 11:00 Total Protein 4.8 g/dL (6.6-8.7) L 10/08/21 04:00 Albumin 2.2 g/dL (3.5-5.2) L 10/08/21 04:00 Globulin 2.6 g/dL (1.3-4.6) 10/08/21 04:00 Triglycerides 63 mg/dL (0-150) 10/07/21 02:55 Cholesterol 111 mg/dL (0-200) 10/07/21 02:55 LDL Cholesterol, Calc 71 mg/dL (50-129) 10/07/21 02:55 Total VLDL Cholesterol 13 mg/dL (0-30) 10/07/21 02:55 HDL Cholesterol 27 mg/dL (60-100) L 10/07/21 02:55 Cholesterol/HDL Ratio 4.11 mg/dL (1.0-5.00) 10/07/21 02:55 Procalcitonin 0.80 ng/mL (0-0.5) H 10/03/21 10:55 Digoxin 0.7 ng/mL (0.6-1.2) 10/07/21 02:55 SARS-CoV-2 Ag (Rapid) Negative (Negative) 10/11/21 13:55 Blood Type A Positive 10/06/21 10:43 Rho(D) Type Positive 10/06/21 10:43 Antibody Screen Negative 10/06/21 10:43 Crossmatch See Detail 10/06/21 10:43 Vitals Last Vital Signs Temp 97.7 F 10/12/21 07:20 Pulse 112 H 10/12/21 08:31 Resp 16 10/12/21 08:31 BP 99/59 10/12/21 07:20 Pulse Ox 94 10/12/21 08:31 O2 Del Method 10/12/21 08:31 O2 Flow Rate 3 10/12/21 08:31 FiO2 30 10/05/21 16:00 Discharge Plan Discharge Patient Disposition: Home Condition: Stable Prescriptions: New acetaminophen 500 mg Tablet 1,000 mg PO Q8H 15 Days Qty: 90 0RF oxycodone 5 mg Tablet 5 mg PO Q4H PRN (Reason: Moderate Pain) 7 Days Qty: 30 0RF Xarelto 20 mg tablet 20 mg PO QPM Qty: 30 0RF Rx Instructions: must administer with evening meal metoprolol tartrate 25 mg Tablet 25 mg PO BID@0900,2100 30 Days Qty: 60 1RF Pacerone 200 mg Tablet 200 mg PO BID 30 Days Qty: 60 3RF Rx Instructions: 200 Mg PO BID For a week and then 200 mg po daily Continued primidone 50 mg tablet 50 mg PO BID Qty: 180 3RF furosemide [Lasix] 20 mg tablet 20 mg PO DAILY PRN (Reason: edema) Qty: 30 2RF budesonide-formoterol [Symbicort] 160-4.5 mcg/actuation HFA aerosol inhaler 2 puff inhalation BID Qty: 10.2 3RF Rx Instructions: 340b Ventolin HFA 90 mcg/actuation HFA aerosol inhaler 2 inh INHALATION Q4H PRN (Reason: shortness of breath or wheezing) Qty: 18 2RF Changed amiodarone 200 mg tablet 200 mg PO BID Qty: 30 0RF Discontinued lisinopril 40 mg tablet 40 mg PO DAILY Qty: 90 3RF warfarin 5 mg tablet 5 mg PO DAILY Qty: 90 3RF Protocol: Dose Management Condition: Friday Dose/Route: 7.5 mg Instruction: 1.5 x 5 mg tablets Condition: Friday Dose/Route: 7.5 mg Instruction: 1.5 x 5 mg tablets Condition: Friday Dose/Route: 5 mg Instruction: 1 x 5 mg tablet Condition: Friday Dose/Route: 7.5 mg Instruction: 1.5 x 5 mg tablets Condition: Dose/Route: 5 mg Instruction: 1 x 5 mg tablet Condition: Friday Dose/Route: 7.5 mg Instruction: 1.5 x 5 mg tablets Condition: Friday Dose/Route: 7.5 mg Instruction: 1.5 x 5 mg tablets Protocol Text: Adjustment Start Date: 09/27/21 INR Value: 3.1 INR Date: 09/24/21 Recheck Date: 10/04/21 Rx Instructions: takes 5mg on friday and only propranolol 60 mg capsule,extended release 24 hr See Rx Instructions .ROUTE .COMPLEX Qty: 30 3RF Dose Instruction: TAKE 1 CAPSULE BY MOUTH EVERY DAY AT BEDTIME Rx Instructions: TAKE 1 CAPSULE BY MOUTH EVERY DAY AT BEDTIME warfarin 5 mg tablet 7.5 mg PO DAILY Hold Instructions: Resume on 08/10/20. Protocol: Dose Management Condition: Friday Dose/Route: 7.5 mg Instruction: 1.5 x 5 mg tablets Condition: Friday Dose/Route: 7.5 mg Instruction: 1.5 x 5 mg tablets Condition: Friday Dose/Route: 5 mg Instruction: 1 x 5 mg tablet Condition: Friday Dose/Route: 7.5 mg Instruction: 1.5 x 5 mg tablets Condition: Dose/Route: 5 mg Instruction: 1 x 5 mg tablet Condition: Friday Dose/Route: 7.5 mg Instruction: 1.5 x 5 mg tablets Condition: Friday Dose/Route: 7.5 mg Instruction: 1.5 x 5 mg tablets Protocol Text: Adjustment Start Date: 09/27/21 INR Value: 3.1 INR Date: 09/24/21 Recheck Date: 10/04/21 Rx Instructions: takes 7.5mg every except friday and takes 5mg on friday and Discharge Orders: Discharge Order (Routine); Ordered 10/12/21 Ordered By: Андрей Arreola Other Ambulatory Orders: DME: Walker (Order) Location: None Selected Ordered By: Halle Ryan Physical Therapy Eval and Treat Outpatient (Order) Timeframe: 3 Days Facility: [facility] - Location: Physical Therapy Ordered By: Halle Ryan Referrals: [facility] [Other] (IF they do not call you on Friday, you can call to check on appointment status.) Halle Ryan MD [Physician] - 10/15/21 8:00 am Yesi Edmond FNP [Nurse Practitioner] - 10/15/21 9:45 am (Follow up post angiogram /hospital followup /cardiology Yesi Edmond [employer] NURSE at same date of appointment with at 08:00 am 10-15-2021 ,.Yesi Louis appointment time is at 09:45 am , if this is inconvienince please call and reschedule Yesi Louis appointment.) Shira Amaya MD [Physician] - 11/20/21 2:45 pm (November 20, 2021 2:45 pm ) Discharge Diet: Advance as tolerated and Usual diet Discharge Activity: Increase activity as tolerated, Limit activity as instructed and Use walker/crutches as instructed Patient Instructions: COPD, Knee Replacement (DC), COPD Stoplight, Joint Replacement Stoplight, Opioid Safety, Post Angiogram Home Care Instructions Activity Restrictions/Additional Instructions: Weightbearing as tolerated. Range of motion per total knee protocol with physical therapy. Ambulation, gait training, and strengthening per physical therapy. Elevate right lower extremity. Try to lay your leg flat to address hip flexion contracture. physical therapy will be arranged at [facility] . patients order for walker /in patients room regarding patients medicine prescriptions . actaminophen pharmacy to get over the counter xarelto -draft roller picker at [facility] pharmacy here at [facility]. 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 and draft roller picker Oxycodone at [facility] pharmacy in [facility] Discharge Attestations Time Spent in Discharge Care*: less than 30 min Quality Metrics Clinical Quality Measures [ No reported AMI, CVA or VTE this stay] Coding Level of Care Code Acute Chg FW DC note Exam Detailed Diagnoses Cardiac arrest with ventricular fibrillation I46.9; I49.01 Encounter for postoperative care Z48.89 Status post total right knee replacement not using cement Z96.651 Essential (primary) hypertension I10 Atrial fibrillation with RVR I48.91 Chronic anticoagulation Z79.01 COPD (chronic obstructive pulmonary disease) J44.9 Cardiac arrest with successful resuscitation I46.9
[2021-10-12] MEDS: calcium carbonate 500 mg Chew Tablet 1000 MG PO (10:07)
[2021-10-12] MEDS: cholecalciferol (vitamin D3) 1,000 unit Tablet 1000 UNIT PO (10:07)
[2021-10-12] MEDS: metoprolol tartrate 25 mg Tablet PO (10:08)
[2021-10-12] MEDS: pantoprazole DR 40 mg Tablet PO (10:11)
[2021-10-12] MEDS: sennosides-docusate Tablet 2 TAB PO (10:11)
[2021-10-12] MEDS: multivitamin therapeutic Tablet 1 TAB PO (10:11)
[2021-10-12] MEDS: iron polysaccharide complex 150 mg Capsule PO (10:11)
[2021-10-12] MEDS: amiodarone 200 mg Tablet PO (10:11)
[2021-10-12] MEDS: apixaban 5 mg Tablet PO (10:15)
[2021-10-12] MEDS: primidone 50 mg Tablet PO (11:59)
--- NOTE | 2021-10-12 12:34 | PC.SOCIAL ---
IMM Update pg 2 of IMM updated and reviewed w/ patient. Copy provided. Copy in chart dated and initialed.
--- NOTE | 2021-10-12 13:47 | PC.NURSE ---
Discussed discharge paperwork, follow up appointments along with new medication, changed medications and discontinued medications. Gave Son paper scripts to have filled and removed ba catheter. All questions answered by this nurse. Verbalized understanding by patient and son.
== END 2021-10-12 14:31 | disposition home or self-care (01) | DRG 983 ==
LOC: ICU 10-03 15:35 → MEDSURG 10-04 05:29 → ICU 10-05 15:32 → MEDSURG 10-07 16:00
PROVIDERS: Anesthesiology; Internal Medicine Cardiovascular Disease; Student in an Organized Health Care Education/Training Program; Admitting Provider Specialist; PCP Internal Medicine; Visit Provider Internal Medicine
PROC: 0SRC0JA Replacement of Right Knee Joint with Synthetic Substitute, Uncemented, Open Approach (ICD-10-PCS; CPT 27447; principal; 2021-10-02 07:00)
PROC: 4A023N7 Measurement of Cardiac Sampling and Pressure, Left Heart, Percutaneous Approach (ICD-10-PCS; principal; 2021-10-05 12:00)
DX: I46.9 Cardiac arrest, cause unspecified (principal); M17.11 Unilateral primary osteoarthritis, right knee; I47.2 Ventricular tachycardia; M24.551 Contracture, right hip; Z88.8 Allergy status to other drugs, medicaments and biological substances; J43.9 Emphysema, unspecified; Z79.51 Long term (current) use of inhaled steroids; Z79.01 Long term (current) use of anticoagulants; I48.0 Paroxysmal atrial fibrillation; N40.1 Benign prostatic hyperplasia with lower urinary tract symptoms; R33.8 Other retention of urine; I10 Essential (primary) hypertension; G25.0 Essential tremor; F17.200 Nicotine dependence, unspecified, uncomplicated; D64.9 Anemia, unspecified; I25.10 Atherosclerotic heart disease of native coronary artery without angina pectoris; I27.20 Pulmonary hypertension, unspecified; Z99.81 Dependence on supplemental oxygen
CPT/HCPCS: 36415; 36416; 36430; 51702; 70450; 71045; 71275; 73562; 78452; 80048; 80053; 80061; 80162; 82962; 83036; 83605; 83735; 84100; 84145; 84484; 85025; 85378; 85610; 86850; 86900; 86920; 87426; 93005; 93017; 93306; 93452; 93458; 93571; 93970; 94640; 94660; 96360; 96372; 97110; 97116; 97161; 97166; 97530; 97535; 99152; 99153; A9500; C1769; C1776; C1887; C1894; C8924; C9113; C9290; G0378; J0153; J0171; J0282; J0690; J1100; J1160; J1644; J1650; J1940; J2250; J2370; J2543; J2704; J2785; J2795; J3010; J3370; J3475; J3490; J7030; J7040; J7050; J7060; J7614; J7626; P9016; Q0163; Q9956; Q9967

== ENCOUNTER → 2021-10-15 10:17 | Outpatient (BNVA) | payer MEDICARE, SELFPAY | PROVIDERS: PCP Internal Medicine; Visit Provider Nurse Practitioner Family | DX: I48.0 Paroxysmal atrial fibrillation (principal); R00.1 Bradycardia, unspecified | CPT/HCPCS: 93005; 99214 ==

== ENCOUNTER → 2021-10-16 11:04 | Outpatient (BNVA) | payer MEDICARE, SELFPAY | PROVIDERS: PCP Internal Medicine; Visit Provider Nurse Practitioner Family | DX: Z98.890 Other specified postprocedural states (principal); Z96.651 Presence of right artificial knee joint; M17.11 Unilateral primary osteoarthritis, right knee | CPT/HCPCS: 73560; 73565; 99024 ==

== ENCOUNTER 2021-10-23 06:00 | Outpatient (RCR) | payer MEDICARE, SELFPAY | END 2021-11-07 23:59 | disposition home or self-care (01) | LOC: TPT 06:00 | PROVIDERS: PCP Internal Medicine; Visit Provider Specialist | DX: Z96.651 Presence of right artificial knee joint (principal) | CPT/HCPCS: 97110; 97116; 97163 ==

== ENCOUNTER 2021-11-08 06:00 | Outpatient (RCR) | payer MEDICARE, SELFPAY | END 2021-12-07 23:59 | disposition home or self-care (01) | LOC: TPT 06:00 | PROVIDERS: PCP Internal Medicine; Visit Provider Specialist | DX: Z96.651 Presence of right artificial knee joint (principal) | CPT/HCPCS: 97110; 97116 ==

== ENCOUNTER → 2021-11-20 14:22 | Outpatient (BNVA) | payer MEDICARE, SELFPAY | PROVIDERS: PCP Internal Medicine; Visit Provider Internal Medicine Cardiovascular Disease | DX: I10 Essential (primary) hypertension (principal); I48.0 Paroxysmal atrial fibrillation; Z79.01 Long term (current) use of anticoagulants; G25.0 Essential tremor; F17.200 Nicotine dependence, unspecified, uncomplicated | CPT/HCPCS: 99214 ==

== ENCOUNTER 2021-12-08 06:00 | Outpatient (RCR) | payer MEDICARE, SELFPAY | END 2021-12-25 23:59 | disposition home or self-care (01) | LOC: TPT 06:00 | PROVIDERS: PCP Internal Medicine; Visit Provider Specialist | DX: Z96.651 Presence of right artificial knee joint (principal) | CPT/HCPCS: 97110 ==

== ENCOUNTER → 2022-01-14 16:52 | Outpatient (BNVA) | payer MEDICARE, SELFPAY | PROVIDERS: PCP Internal Medicine; Visit Provider Internal Medicine | DX: I10 Essential (primary) hypertension (principal); M17.4 Other bilateral secondary osteoarthritis of knee; G25.0 Essential tremor; M17.11 Unilateral primary osteoarthritis, right knee; D64.9 Anemia, unspecified; R63.4 Abnormal weight loss; J44.9 Chronic obstructive pulmonary disease, unspecified; Z79.01 Long term (current) use of anticoagulants; Z79.4 Long term (current) use of insulin | CPT/HCPCS: 80053; 82607; 83550; 85025; 85610; 85651; 86140 ==

== ENCOUNTER → 2022-08-01 09:12 | Outpatient (BNVA) | payer MEDICARE, SELFPAY | PROVIDERS: PCP Internal Medicine; Visit Provider Specialist | DX: M17.4 Other bilateral secondary osteoarthritis of knee (principal); Z71.89 Other specified counseling | CPT/HCPCS: 20610; J7327 ==

== ENCOUNTER → 2022-09-24 15:01 | Outpatient (BNVA) | payer MEDICARE, SELFPAY | PROVIDERS: PCP Internal Medicine; Visit Provider Internal Medicine Cardiovascular Disease | DX: I48.0 Paroxysmal atrial fibrillation (principal); I10 Essential (primary) hypertension; I45.10 Unspecified right bundle-branch block; J44.9 Chronic obstructive pulmonary disease, unspecified; G25.0 Essential tremor; F17.200 Nicotine dependence, unspecified, uncomplicated; Z79.01 Long term (current) use of anticoagulants | CPT/HCPCS: 99214 ==

== ENCOUNTER → 2023-03-20 14:12 | Outpatient (BNVA) | payer MEDICARE, SELFPAY | PROVIDERS: PCP Internal Medicine; Visit Provider Nurse Practitioner | DX: M17.4 Other bilateral secondary osteoarthritis of knee (principal); Z71.89 Other specified counseling | CPT/HCPCS: 20610; J7327 ==

== ENCOUNTER → 2023-03-26 11:05 | Outpatient (BNVA) | payer MEDICARE, SELFPAY | PROVIDERS: PCP Internal Medicine; Visit Provider Internal Medicine Cardiovascular Disease | DX: I48.0 Paroxysmal atrial fibrillation (principal); I45.10 Unspecified right bundle-branch block; Z51.81 Encounter for therapeutic drug level monitoring; Z79.899 Other long term (current) drug therapy; G25.0 Essential tremor; J44.9 Chronic obstructive pulmonary disease, unspecified; Z79.01 Long term (current) use of anticoagulants; I47.10 Supraventricular tachycardia, unspecified; F17.200 Nicotine dependence, unspecified, uncomplicated | CPT/HCPCS: 99214 ==

== ENCOUNTER → 2023-10-08 14:00 | Outpatient (BNVA) | payer MEDICARE, SELFPAY | PROVIDERS: PCP Internal Medicine; Visit Provider Nurse Practitioner | DX: M17.12 Unilateral primary osteoarthritis, left knee (principal) | CPT/HCPCS: 20610; J7327 ==